=== PATIENT | male | born 1945 | race Caucasian/White ===

== ENCOUNTER → 2016-07-21 | Outpatient (CLI) | payer MEDICARE ==
[2016-07-21 09:32] LABS: CH 28.8; CHCM 31.9; HDW 2.69; MCH 29.2 pg (25.0-35.0); MCHC 32.3 g/dL (31.0-37.0); MCV 90.4 fL (80.0-100.0); Mean Platelet Volume 7.7; RBC 3.43 m/uL (4.30-5.90)
[2016-07-21 09:43] LABS: Calcium 9.6 mg/dL (8.4-10.2); Potassium 5.1 mmol/L (3.5-5.1)
== END | disposition home or self-care (01) ==
LOC: LABWHC1 08:46
PROVIDERS: ATTEND Surgery Vascular Surgery
DX: I73.9 Peripheral vascular disease, unspecified (principal)
CPT/HCPCS: 36415; 80048; 85027; 86850; 86900; 86901

== ENCOUNTER → 2016-10-19 | Day surgery (SDC) | payer MEDICARE ==
[2016-10-17 15:52] VITALS: BMI 41.9
[~2016-10-19] MED LIST: LACTATED RINGERS 1,000 ML IV ONE; LACTATED RINGERS 1,000 ML IV SCH; LIDOCAINE 1% 20 ML VIAL (10MG/ML) FOR IV START INTRADERMA PRN; PROPOFOL 10 MG/ML 20 ML VIAL IV ONE; ePHEDrine 50 MG/ML 1 ML AMP ONE
[2016-10-19 07:31] VITALS: RESP 18; TEMP 97.3
[2016-10-19 07:35] LABS: Glucose,Whole Blood 137 mg/dL (75-99)
--- NOTE | 2016-10-19 08:59 | P.PCN ---
Date of Procedure: 10/19/16 Procedure(s) Performed: Procedure: Total colonoscopy. Preoperative diagnosis: Iron deficiency anemia. Postoperative diagnosis: Exam within normal limits. Preparation: HalfLytely prep. Sedation: Was provided by anesthesia. Brief clinical history: The patient is a 71-year-old male who is referred for this evaluation because of iron deficiency anemia. He has no upper or lower abdominal symptoms or change in bowel habits or any history of overt bleeding. No family history of colon cancer. This would be his first colonoscopy. Procedure: With the patient on his left lateral decubitus position and after informed consent and adequate sedation, the perianal area was inspected and it did not show any fissures or fistulas. There were no masses felt on digital rectal examination. The Olympus CFQ 160L video colonoscope was then inserted in the rectum in the usual fashion and advanced to the cecum. The mucosa appeared healthy. No polyps or tumors were seen or any obvious diverticular disease or other pathology. I retroflexed endoscope in the rectum before the endoscope was withdrawn. The patient tolerated the procedure well. Plan: The patient was reassured. Consideration can be given for upper GI workup if he continues to have iron deficiency and shows evidence of GI blood loss. He will follow up with you as planned and we would be happy to see in the future.
[2016-10-19 09:18] VITALS: BP 101/56; PULSE 63
== END ==
LOC: ORWHC2ENDO 06:36
DX: D50.9 Iron deficiency anemia, unspecified (principal); I10 Essential (primary) hypertension; E78.5 Hyperlipidemia, unspecified; E11.9 Type 2 diabetes mellitus without complications; Z79.4 Long term (current) use of insulin; Z79.84 Long term (current) use of oral hypoglycemic drugs; I73.9 Peripheral vascular disease, unspecified; Z79.02 Long term (current) use of antithrombotics/antiplatelets; Z79.82 Long term (current) use of aspirin; Z79.899 Other long term (current) drug therapy; Z88.1 Allergy status to other antibiotic agents; Z91.09 Other allergy status, other than to drugs and biological substances
CPT/HCPCS: 45378; J2704

== ENCOUNTER 2021-07-12 10:10 | Day surgery (SDC) | payer MEDICARE ==
[2021-07-06 11:11] VITALS: BMI 47.6
[~2021-07-12 10:10] MED LIST changes: +ALPRAZolam 0.25 MG TAB PO PRN; +ALPRAZolam 0.5 MG TAB PO PRN; +ASPIRIN 325 MG TAB PO STA; +ATORVASTATIN 80 MG TAB PO STA; -LACTATED RINGERS 1,000 ML IV ONE; -LACTATED RINGERS 1,000 ML IV SCH; -LIDOCAINE 1% 20 ML VIAL (10MG/ML) FOR IV START INTRADERMA PRN; +NITROGLYCERIN SL TABS 0.4 MG TAB SUBLINGUAL PRN; -PROPOFOL 10 MG/ML 20 ML VIAL IV ONE; +SODIUM CHLORIDE 0.9% 1,000 ML in EMPTY BAG 1 BAG IV SCH; -ePHEDrine 50 MG/ML 1 ML AMP ONE
[2021-07-12 11:04] VITALS: TEMP 98.5
[2021-07-12] MEDS ORDERED: lisinopriL 20 MG TAB PO STA (11:09)
[2021-07-12] MEDS ORDERED: amLODIPine 5 MG TAB PO STA (11:09)
[2021-07-12] MEDS ORDERED: METOPROLOL SUCCINATE (ER) 50 MG TAB.ER.24H PO STA (11:09)
[2021-07-12 11:11] LABS: Glucose,Whole Blood 134 mg/dL (75-99)
[2021-07-12] MEDS ORDERED: fentaNYL (PF) 50 MCG/ML 2 ML AMP ONE (12:24)
[2021-07-12] MEDS: BENZOCAINE SPRAY 1 CAN MUCOUS MEM ONE ×2 (12:30→12:33)
[2021-07-12] MEDS ORDERED: fentaNYL (PF) 50 MCG/ML 2 ML AMP IV ONE (12:33)
[2021-07-12] MEDS: MIDAZOLAM 2 MG/2 ML VIAL IV ONE ×2 (12:33→12:35)
[2021-07-12] MEDS ORDERED: SODIUM CHLORIDE 0.9% 800 ML IV ONE (12:54)
--- NOTE | 2021-07-12 13:06 | P.TEE ---
Description of Procedure(s): Procedure performed: Transesophageal Echocardiogram with color flow doppler, pulsed wave doppler and continuous wave doppler, moderate conscious sedation Moderate conscious sedation: Moderate conscious sedation was supplied with direct supervision of myself using Versed and Fentanyl. Complications: none Indications: Severe aortic stenosis History: Patient is a pleasant 76-year-old male who has been monitored for aortic stenosis. He has been having increased dyspnea over last few months. Prior echo showed severe aortic stenosis with a V-max of 4.0 m/s. Therefore recommendation was for a DAVON and heart catheterization. PROCEDURE: After the risks, benefits and alternatives of the above mentioned procedure was explained in detail with the patient, informed consent was obtained. Patient was brought to the lab in a fasting state. Patient was given IV Versed and Fentanyl for sedation. The throat was sprayed with Hurricane to anesthetize the throat. A lubricated Omni probe was then introduced into the esophagus and stomach and multiple views were obtained. 2D echo with color flow doppler, pulsed wave doppler and continuous wave doppler was utilized. Agitated saline bubbles were injected to assess for any intra-atrial shunt. The probe was then removed. Patient tolerated the procedure well. Patient was t ransferred to the post procedure area in stable and satisfactory condition. FINDINGS: 1. The aortic valve is tricuspid and diffuse calcium with decreased leaflet excursion. There is severe aortic stenosis. Vmax was 3.8m/s however somewhat at an angle. JEFFRY by planimetry was 1.0 m/s. There is moderate aortic insufficiency. 2. The mitral valve appears be normal with mild mitral regurgitation. 3. Tricuspid valve appears to be normal with trace tricuspid regurgitation. 4. The interatrial septum is intact. No evidence of PFO. 5. Left atrial appendage is free of clot. 6. Left ventricular size appears normal. Left ventricular ejection fraction mildly reduced at 45-50% with mild global hypokinesis.
[2021-07-12] MEDS ORDERED: LIDOCAINE 1% INJ 10MG/ML (20 ML MDV) SQ ONE (13:16)
[2021-07-12] MEDS ORDERED: VERAPAMIL SYRINGE (5 MG/10 ML) INTRAARTER ONE (13:19)
[2021-07-12] MEDS ORDERED: SODIUM CHLORIDE 0.9% 600 ML IV ONE (13:24)
[2021-07-12] MEDS ORDERED: IOPAMIDOL-370 125ML BTL INJ ONE (13:56)
[2021-07-12] MEDS ORDERED: RX INFO: IV CONTRAST WAS GIVEN 1 EACH MISC MISCELLANE PRN (14:57)
[2021-07-12] MEDS ORDERED: SODIUM CHLORIDE 0.9% 1,000 ML IV SCH (15:00)
[2021-07-12 16:36] VITALS: PULSE 62; RESP 16
--- NOTE | 2021-07-12 17:11 | P.CARDCATH ---
Description of Procedure: PROCEDURES PERFORMED: Left heart catheterization, bilateral coronary angiography, iFR RCA INDICATION: Abnormal stress test, class III dyspnea, Severe aortic stenosis HISTORY: Patient is a pleasant 76-year-old male with history of hypertension, hyperlipidemia, PAD abnormal stress test and aortic stenosis. He had echo performed over the summer which showed severe with a Vmax of 4.0m/s however was fairly asymptomatic. He also had an abnormal stress test which showed inducible ischemia however stated he had been asymptomatic. Unfortunately he has been having increased symptoms of STEINBERG over the last 2 months and therefore DAVON and LHC were recommended. DAVON done today had shown JEFFRY 1.0cm2 however velocities somewhat lower. CONSENT:I have discussed the risks, benefits and alternative therapies for the above-mentioned procedure and for both sedation/analgesia as well as necessary blood product administration, if indicated, as they pertain to this patient. The patient has indicated understanding and acceptance of the risks and procedures discussed. PROCEDURE: After the risks, benefits and alternatives of the above mentioned procedure explained in detail with the patient, informed consent was obtained. Patient was taken to the catheterization lab and prepped and draped in usual fashion. 1% lidocaine was used to anesthetize the right radial artery. A 6- Bolivian sheath was placed in the right radial artery using modified Seldinger technique. Left coronary angiography was performed with a 5-Bolivian JL 3.[address] and right coronary angiography was performed with a 5-Bolivian FR5 catheter in various views. A 5-Bolivian FR5 catheter was inserted into the left ventricle with some manipulation and pressure measurements were obtained. Given Afib and some variable pressures we performed simultaneous pressure measurements from the LV and the right radial sheath. There was possibility of some discrepancy from the radial site however after pullback, aortic and radial pressures were fairly similar. Pullback was performed. The decision was made to perform iFR of the LAD. Heparin was given for ACT greater than 250. A 6-Bolivian FR5 guide was used to engage the RCA. A 0.014 iFR pressure wire was advanced and normalized. The first iFR reading there was some drift and therefore was renormalized. The iFR wire was advanced into the distal RCA and iFR was performed and was normal at 0.95. The wire was then removed. The right radial sheath was removed and a TR band was placed with hemostasis achieved. The patient tolerated the procedure well. Patient was transported back to the post catheterization holding area in stable condition. Conscious Sedation: Patient was monitored under the direct supervision of vision of myself for conscious sedation using Versed and fentanyl for a total duration of 47 minutes HEMODYNAMICS: AO: 123/64 LV: 177/14, LVEDP 19mmHg. Mean gradient 32.6mmHg, peak to peak gradient 39mmHg SELECTIVE CORONARY ARTERIOGRAPHY: LEFT MAIN: The left main is a large caliber vessel which bifurcates into the LAD and circumflex. There is 30% left main stenosis. LEFT ANTERIOR DESCENDING CORONARY ARTERY: LAD is a large caliber vessel which wraps around to the apex. There are mild luminal irregularties. LEFT CIRCUMFLEX CORONARY ARTERY: Left circumflex is a moderate caliber vessel and has mild 20-30% stenosis. RIGHT CORONARY ARTERY: The right coronary artery is a large caliber vessel which gives off the PDA and PLV and is the dominant vessel. There is a mid RCA hea vily calcified 60% stenosis. iFR of 0.95 FINAL IMPRESSION: 1. CAD as described above including 30% left main and 60% mid RCA, iFR RCA normal at 0.95 2. Mildly elevated left sided filling pressures. 3. Mean gradient 32.6, peak to peak gradient of 39mmHg PLAN: 1. Aggressive risk factor modification per most recent ACC/AHA guidelines. 2. Followup in office.
[2021-07-12] MEDS ORDERED: glipiZIDE 5 MG TAB PO SCH (17:30)
[2021-07-12 17:49] VITALS: BP 119/72
[2021-07-12] MEDS ORDERED: INSULIN GLARGINE HUM REC ANLOG 300 UNIT/ML SQ SCH (21:00)
[2021-07-12] MEDS ORDERED: ATORVASTATIN 40 MG TAB PO SCH (21:00)
[2021-07-12] MEDS ORDERED: RIVAROXABAN 20 MG TAB PO SCH (21:00)
[2021-07-13] MEDS ORDERED: METOPROLOL SUCCINATE (ER) 50 MG TAB.ER.24H PO SCH (09:00)
[2021-07-13] MEDS ORDERED: amLODIPine 5 MG TAB PO SCH (09:00)
[2021-07-13] MEDS ORDERED: ASPIRIN 81 MG PO SCH (09:00)
[2021-07-13] MEDS ORDERED: NON FORMULARY DRUG (Lisinopril [Lisinopril] 40 MG Tablet) PO SCH (09:00)
[2021-07-18] MEDS ORDERED: NON FORMULARY DRUG (Dulaglutide [Trulicity] 3 MG/0.5 ML Each) SQ SCH (14:56)
== END 2021-07-12 17:35 | disposition home or self-care (01) ==
LOC: CATHCVL 10:10
PROVIDERS: ATTEND Internal Medicine
DX: I25.10 Atherosclerotic heart disease of native coronary artery without angina pectoris (principal); I08.3 Combined rheumatic disorders of mitral, aortic and tricuspid valves; I48.0 Paroxysmal atrial fibrillation; R94.39 Abnormal result of other cardiovascular function study; I50.30 Unspecified diastolic (congestive) heart failure; E11.51 Type 2 diabetes mellitus with diabetic peripheral angiopathy without gangrene; Z20.822 Contact with and (suspected) exposure to COVID-19; Z87.891 Personal history of nicotine dependence; I10 Essential (primary) hypertension; Z95.820 Peripheral vascular angioplasty status with implants and grafts; R53.81 Other malaise; Z72.0 Tobacco use; Z79.01 Long term (current) use of anticoagulants; Z79.84 Long term (current) use of oral hypoglycemic drugs; Z79.4 Long term (current) use of insulin; Z79.899 Other long term (current) drug therapy; Z88.1 Allergy status to other antibiotic agents; Z91.09 Other allergy status, other than to drugs and biological substances
CPT/HCPCS: 93312; 93320; 93325; 93458; 87635; C1887; C1894; C1769; J2250; J2001; J3010; J1644; Q9967

== ENCOUNTER → 2021-07-21 | Outpatient (CLI) | payer MEDICARE ==
[2021-07-21 09:05] LABS: ALT 24 U/L (4-49); AST 24 U/L (17-59); Albumin 4.2 g/dL (3.5-5.0); Albumin/Globulin Ratio 1.4; Alkaline Phosphatase 95 U/L (38-126); Anion Gap 9 mmol/L; Calcium 9.5 mg/dL (8.4-10.2); Carbon Dioxide 24 mmol/L (22-30); Chloride 105 mmol/L (98-107); Globulin 2.9 g/dL; Glucose 155 mg/dL (74-99); Magnesium 1.9 mg/dL (1.6-2.3); Potassium 4.6 mmol/L (3.5-5.1); Sodium 138 mmol/L (137-145); Total Bilirubin 0.7 mg/dL (0.2-1.3); Total Protein 7.1 g/dL (6.3-8.2)
[2021-07-21 09:10] LABS: INR 1.2 (<1.2); Partial Thromboplastin Time 31.6 sec (22.0-30.0); Prothrombin Time 12.4 sec (9.0-12.0)
[2021-07-21 09:44] LABS: African American GFR (CKD) 66 (>60 ml/min/1.73 sqM); Blood Urea Nitrogen 18 mg/dL (9-20); Non-African American GFR(CKD) 57 (>60 ml/min/1.73 sqM)
[2021-07-21 10:54] LABS: Appearance,Urine Clear (Clear); Bacteria,Urine Rare /hpf; Bilirubin,Urine Negative (Negative); Blood,Urine Negative (Negative); Color,Urine Light Yellow; Glucose,Urine (UA) Negative (Negative); Ketones,Urine Negative (Negative); Leukocyte Esterase,Urine Large (Negative); Nitrite,Urine Negative (Negative); PH, Urine 5.5 (5.0-8.0); Protein,Urine Negative (Negative); RBC,Urine 1 /hpf (0-5); Specific Gravity,Urine 1.021 (1.001-1.035); Squamous Epithelial Cell,Urine 1 /hpf (0-4); Urobilinogen,Urine <2.0 mg/dL (<2.0); WBC,Urine 4 /hpf (0-5)
--- NOTE | 2021-07-21 11:12 | CT ---
EXAMINATION TYPE: CT TAVR Planning DATE OF EXAM: 07/21/2021 HISTORY: nonrheumatic aortic insufficiency CT DLP: 2473.6 mGycm Automated Exposure Control for Dose Reduction was Utilized. CONTRAST: CT scan of the chest, abdomen and pelvis is performed with IV Contrast, patient injected with 120 mL of Isovue 370. COMPARISON: None. TECHNIQUE: Helical imaging obtained through the chest, abdomen and pelvis during arterial phase allison smiley administration of radiographic contrast intravenously. FINDINGS: See report from [facility] regarding preprocedural planning CHEST: Lower Neck and Thyroid: No significant findings Lungs: Incidental 4 mm posterior subpleural nodule right lung axial image 31 series 12. Central Airway: No significant findings Pleura: No significant findings Pulmonary Arteries: No significant findings Heart and Pericardium: Fairly severe three-vessel coronary artery calcification. Moderate calcificati on at level of the aortic and mitral valves. Cardiomegaly is present. Lymph Nodes: A few prominent borderline enlarged subcarinal lymph nodes. Mediastinum & Esophagus: No significant findings ABDOMEN/PELVIS: Please note arterial phase of the imaging limits detailed evaluation of the solid abdominal organs. Liver: The liver is heterogeneously hypodense consistent with diffuse fatty infiltration Spleen: No significant findings Kidneys: Cortical thinning bilaterally. Areas of diminished enhancement or perfusion in the left kidn ey noted Adrenal Glands: No significant findings Pancreas: No significant findings Gallbladder: No significant findings Bowel and Mesentery: Redundant sigmoid colon Lymph Nodes: No significant findings Urinary Bladder: No significant findings Pelvic Organs: Enlarged prostate consistent with BPH. Adjacent scattered pelvic phleboliths. Other: Small-caliber abdominal aorta with moderate peripheral calcified plaque IMPRESSION: As above.
[2021-07-21 13:33] LABS: Basophils # (A) 0.05 X 10*3/uL (0.00-0.10); Basophils % (A) 0.5 %; Eosinophils # (A) 0.12 X 10*3/uL (0.04-0.35); Eosinophils % (A) 1.1 %; HCT 45.4 % (39.6-50.0); HGB 14.3 g/dL (13.0-17.0); Immature Grans, Automated 0.4 %; Lymphocytes # (A) 1.85 X 10*3/uL (0.90-5.00); Lymphocytes % (A) 17.3 %; MCH 29.7 pg (27.0-32.0); MCHC 31.5 g/dL (32.0-37.0); MCV 94.4 fL (80.0-97.0); Mean Platelet Volume 10.6 fL (9.5-12.2); Monocytes # (A) 0.89 X 10*3/uL (0.20-1.00); Monocytes % (A) 8.3 %; NRBC Per 100 WBC 0 /100 WBCS (0.0-0.0); Neutrophils # (A) 7.77 X 10*3/uL (1.80-7.70); Neutrophils % (A) 72.4 %; Platelet Count 222 X 10*3/uL (140-440); RBC 4.81 X 10*6/uL (4.40-5.60); RDW 13.9 % (11.5-14.5); WBC 10.72 X 10*3/uL (4.50-10.00)
[2021-07-21 14:01] LABS: Hepatitis A Antibody IgM Nonreactive (Nonreactive); Hepatitis B Core IgM Nonreactive (Nonreactive); Hepatitis B Surface Antigen Nonreactive (Nonreactive); Hepatitis C IgG Antibody Nonreactive (Nonreactive)
[2021-07-21 14:25] LABS: Chol/HDL Ratio 3.54 Ratio; LDL Cholesterol,Calculated 43.7 mg/dL (0.0-131.0)
== END | disposition home or self-care (01) ==
LOC: LABWHC1 07:39
PROVIDERS: ATTEND Internal Medicine
DX: I35.0 Nonrheumatic aortic (valve) stenosis (principal); I48.91 Unspecified atrial fibrillation; R94.31 Abnormal electrocardiogram [ECG] [EKG]
CPT/HCPCS: 94150; 83880; 80061; 80053; 80074; 84443; 83735; 85025; 85610; 85730; 81001; 87070; 87086; 87077; 87186; 83036; 71275; 36415 ×2; 74174; 93005; Q9967

== ENCOUNTER → 2021-08-04 | Outpatient (CLI) | payer MEDICARE ==
--- NOTE | 2021-08-05 09:20 | CT ---
EXAMINATION TYPE: CT angio chest DATE OF EXAM: 08/04/2021 4:47 PM COMPARISON: CT dated 07/21/2021 HISTORY: Assess aortic arch and arch vessels CT DLP: 1459.2 mGycm Automated exposure control for dose reduction was used. CONTRAST: CTA scan of the thorax is performed without and with IV Contrast, patient injected with 80 mL of Isov ue 370, thoracic aorta protocol. MIP and 3-D images were performed and reviewed. FINDINGS: Scattered arterial atherosclerotic calcifications including coronary arterial calcifications. Aortic and mitral valve calcification is also noted. -The aortic annulus measures 3 cm. -The sinus of Valsalva measures 3.7 cm. -The sinotubular junction measures 3 cm. -The ascending aorta measures 4 cm. -The aortic arch measures 3.7 cm. -The proximal portion of the descending aorta measures 2.7 cm. -The inferior aspect of the descending aorta measures 2.6 cm. Atherosclerotic calcifications of the major arch vessels without significant stenosis or occlusion. S evere stenosis of the origin of the right vertebral artery yet patent distally. About 60% stenosis of the origin of the left vertebral artery yet patent distally. Dilated left atrium, please correlate w ith echocardiographic results. No pericardial effusion. 3 mm nodule at the posterior aspect of the right lower lobe with 4 mm nodule at the lateral aspect of the right lower lung lobe (image 29, series 12). No follow-up is required for these nodules if low r isk patient. If high-risk patient, optional follow-up CT scan in 12 months can be considered. Unremar kable lungs otherwise. Patent central airways. No pleural effusion. No pathologically enlarged lymph nodes in the chest. Suspected hepatic steatosis. No aggressive bone lesion. IMPRESSION: Thoracic aortic measurements and findings as detailed above. Please correlate with echocardiographic results. Other incidental findings as described above.
== END | disposition home or self-care (01) ==
LOC: RADCTMAIN 14:46
PROVIDERS: ATTEND Thoracic Surgery (Cardiothoracic Vascular Surgery)
DX: I08.0 Rheumatic disorders of both mitral and aortic valves (principal); I25.10 Atherosclerotic heart disease of native coronary artery without angina pectoris; R91.1 Solitary pulmonary nodule
CPT/HCPCS: 82565; 84520; 71275; 36415; Q9967

== ENCOUNTER → 2021-09-02 | Outpatient (CLI) | payer MEDICARE | END | disposition home or self-care (01) | LOC: LABWHC1 08:44 | PROVIDERS: ATTEND Thoracic Surgery (Cardiothoracic Vascular Surgery) | DX: Z53.9 Procedure and treatment not carried out, unspecified reason (principal) ==

== ENCOUNTER 2021-09-07 05:43 | Inpatient (IN) | payer MEDICARE ==
[2021-09-02 10:01] LABS: INR 1.3 (<1.2); Partial Thromboplastin Time 33.6 sec (22.0-30.0); Prothrombin Time 13.9 sec (9.0-12.0)
[2021-09-02 14:51] LABS: HCT 43.1 % (39.6-50.0); HGB 13.4 g/dL (13.0-17.0); MCH 29.5 pg (27.0-32.0); MCHC 31.1 g/dL (32.0-37.0); MCV 94.9 fL (80.0-97.0); Mean Platelet Volume 10.5 fL (9.5-12.2); NRBC Per 100 WBC 0 /100 WBCS (0.0-0.0); Platelet Count 224 X 10*3/uL (140-440); RBC 4.54 X 10*6/uL (4.40-5.60); RDW 14.1 % (11.5-14.5); WBC 11.05 X 10*3/uL (4.50-10.00)
[2021-09-02 15:35] LABS: African American GFR (CKD) 68.6 (60.0-200.0); Albumin 4.5 g/dL (3.8-4.9); Albumin/Globulin Ratio 1.8 (1.60-3.17); Anion Gap 13.1 mmol/L (10.00-18.00); BUN/Creat Ratio 13.75 Ratio (12.00-20.00); Blood Urea Nitrogen 16.5 mg/dL (9.0-27.0); Calcium 9.9 mg/dL (8.7-10.3); Carbon Dioxide 22.9 mmol/L (20.0-27.5); Globulin 2.5 g/dL (1.6-3.3); Non-African American GFR(CKD) 59.2 (60.0-200.0); Potassium 4.7 mmol/L (3.5-5.5); Total Bilirubin 0.3 mg/dL (0.30-1.20)
[~2021-09-07 05:43] MED LIST changes: -ALPRAZolam 0.25 MG TAB PO PRN; -ALPRAZolam 0.5 MG TAB PO PRN; -ASPIRIN 325 MG TAB PO STA; -ATORVASTATIN 80 MG TAB PO STA; -NITROGLYCERIN SL TABS 0.4 MG TAB SUBLINGUAL PRN; -SODIUM CHLORIDE 0.9% 1,000 ML in EMPTY BAG 1 BAG IV SCH; +TRANEXAMIC ACID 2,000 MG in SODIUM CHLORIDE 0.9% 80 ML IV PRN
[2021-09-07] MEDS ORDERED: SODIUM CHLORIDE 0.9% 500 ML 500 ML INTRAARTER PRN (06:00)
[2021-09-07] MEDS ORDERED: PROTAMINE SULFATE 250 MG in EMPTY BAG 1 BAG IV PRN (06:00)
[2021-09-07] MEDS ORDERED: METOPROLOL TARTRATE 25 MG TAB PO ONE (06:00)
[2021-09-07] MEDS ORDERED: NITROGLYCERIN-D5W PMX 25 MG/250 ML BTL IV PRN (06:00)
[2021-09-07] MEDS ORDERED: LACTATED RINGERS 1,000 ML IV SCH (06:00)
[2021-09-07] MEDS ORDERED: CLEVIDIPINE BUTYRATE 25 MG in EMPTY BAG 1 BAG IV PRN (06:00)
[2021-09-07] MEDS ORDERED: CLOPIDOGREL 75 MG TAB PO ONE (06:00)
[2021-09-07] MEDS ORDERED: ELECTROLYTE-A SOLUTION 1,000 ML with POTASSIUM CHLORIDE 100 MEQ, MAGNESIUM SULFATE 16 M... IV PRN ×5 (06:00)
[2021-09-07] MEDS ORDERED: INSULIN REGULAR 100 UNIT in SODIUM CHLORIDE 0.9% 100 ML IV PRN (06:00)
[2021-09-07] MEDS ORDERED: ATORVASTATIN 10 MG TAB PO ONE (06:00)
[2021-09-07] MEDS ORDERED: ASPIRIN 325 MG TAB PO ONE (06:00)
[2021-09-07] MEDS ORDERED: TRANEXAMIC ACID 2,000 MG in SODIUM CHLORIDE 0.9% 80 ML IV PRN (06:00)
[2021-09-07] MEDS ORDERED: SODIUM CHLORIDE 0.9% 1,000 ML IV ONE ×3 (06:10→11:22)
[2021-09-07 06:26] LABS: Glucose,Whole Blood 105 mg/dL (75-99)
[2021-09-07] MEDS ORDERED: LIDOCAINE 1% INJ 10MG/ML (20 ML MDV) ONE ×2 (07:26→08:00)
[2021-09-07] MEDS ORDERED: PHENYLEPHRINE-0.9% NACL SYG 1,000 MCG/10 ML SYRINGE ONE (08:00)
[2021-09-07] MEDS ORDERED: SUCCINYLCHOLINE CHLORIDE 100 MG/5 ML SYR IV ONE (08:00)
[2021-09-07] MEDS ORDERED: MIDAZOLAM 2 MG/2 ML VIAL ONE (08:00)
[2021-09-07] MEDS ORDERED: fentaNYL (PF) 50 MCG/ML 2 ML AMP ONE (08:00)
[2021-09-07] MEDS ORDERED: NEOSTIGMINE 1 MG/ML 10 ML VIAL ONE (08:00)
[2021-09-07] MEDS ORDERED: PROTAMINE SULFATE 10 MG/ML 5 ML VIAL IV ONE (08:00)
[2021-09-07] MEDS ORDERED: HYDROmorphone (PF) 1 MG/ML ONE (08:00)
[2021-09-07] MEDS ORDERED: ROCURONIUM 10 MG/ML (5 ML VIAL) IV ONE (08:00)
[2021-09-07] MEDS ORDERED: PROPOFOL 10 MG/ML 20 ML VIAL IV ONE (08:00)
[2021-09-07] MEDS ORDERED: HEPARIN SODIUM,PORCINE 10,000 UNIT/ML 1 ML VIAL ONE (08:00)
[2021-09-07] MEDS ORDERED: SODIUM CHLORIDE 0.9% IRRIG 1,000 ML BTL IRRIGATION ONE (08:00)
[2021-09-07] MEDS ORDERED: GLYCOPYRROLATE 0.2 MG/ML 2 ML VIAL ONE (08:00)
[2021-09-07] MEDS ORDERED: traMADol 50 MG TAB PO PRN ×2 (10:44)
[2021-09-07] MEDS ORDERED: ACETAMINOPHEN TAB 325 MG TAB PO PRN (10:44)
[2021-09-07] MEDS ORDERED: IPRATROPIUM-ALBUTEROL 3 ML NEB INHALATION PRN (10:44)
[2021-09-07] MEDS ORDERED: ONDANSETRON 4 MG/2 ML VIAL IVP PRN (10:44)
--- NOTE | 2021-09-07 10:46 | P.OP ---
Description of Procedure: Transcatheter Aoritc Valve Replacement Operative report PROCEDURE PERFORMED: 1. Direct arotic access and aortic Valve Implantation using a 29 mm Core-Valve Evolut-Pro Plus. 2. Transesophageal echocardiography (performed by anesthesia) 3. Ultrasound guided access of left femoral artery. 4. Placement of temporary pacemaker wire. 5. Aortic root angiography INDICATIONS: 1. 76 year-old with a history of severe symptomatic aortic valve stenosis NYHA class 3 symptoms. PERFORMING PHYSICIANS: 1. Bravo Joya DO Interventional Cardiology 2. Alvaro Haddad MD Interventional Cardiology. 3. Anthony Servin MD, Cardiothoracic Surgeon. 4. Doreen Muir MD Proctoring Interventional cardiology SEDATION: General anesthesia provided by anesthesia, see separate note APPROACH: Direct aortic access via open sternotomy PROCEDURE DESCRIPTION: The patient was discussed at valve clinic with multidisciplinary approach with cardiothoracic surgeon as well as vehicle and equipment cleaner and thought better treated with TAVR. Risks, benefits, and alternatives of the procedure had been explained to the patient who understood the risks and agreed to proceed. Patient was noted to have severe PAD including bilateral iliac disease, subclavian disease and carotid disease and follow-up best treated with direct aortic approach. After consents were obtained, patient was brought to the operating room in the cardiac clinical laboratory medical director and general anesthesia was provided by the anesthesiologist (see separate report). Once full body sterile prep was performed, right subclavian venous access was obtained and a temporary pacemaker was screwed in, performed by cardiothoracic surgery. Pacing threshholds were checked and deemed appropriate. Sternotomy was performed and purse string sutures were placed at the level of direct aortic access. A left femoral 6-Pakistani sheath was placed by ultrasound guidance. A 6-Pakistani pigtail was placed in the aortic root and aortic root angiography was performed. Direct aortic access was obtained with a 18-gauge needle and a 6-Pakistani sheath was placed. Using a 6-Pakistani JR4 catheter and a 0.035 straight wire the severely stenotic valve was crossed. The JR4 was then exchanged for a 6Fr pigtail catheter. A 0.035 Safari wire was then positioned in the apex. Over the Safari wire a 18-Pakistani sheath was placed. Next a 29 mm Corevalve Evolut-Pro Plus was advanced. The valve was then positioned across the aortic valve and confirmed with aortic root angiography. The valve was then deployed in proper position using slow deployment and with rapid pacing in conjuncture with aortic root angiography and DAVON. The delivery system was withdrawn back into the sheath and an aortic root injection in conjunction with DAVON demonstrated a satisfactory result. There was trace para valvular leak. There was no evidence of any other significant abnormalities. The sheath was withdrawn and the pursestring sutures were tightened in place with hemostasis achieved. The sternotomy was closed by cardiothoracic surgery, see separate note. The left femoral sheath was pulled and manual pressure was held with complete hemostasis. The temporary venous pacemaker was sutured in place. The patient was then transported to the ICU in hemodynamically stable condition, requiring no pressor support. COMPLICATIONS: None CONCLUSION: 1. Implantaion of 29 Core-Valve Evolut-Pro Plus transcatheter aortic valve via direct aortic approach under DAVON and fluoro guidance with trace tonio-valvular aortic regurgitation. 2. Placement of temporary pacemaker wire 3. Aortic Root Aortogram. 4. Direct aortic approach with sternotomy RECOMMENDATIONS: The patient will be monitored in the ICU for hemodynamic and electrical stability.
--- NOTE | 2021-09-07 11:07 | P.OP ---
Date of Procedure: 09/07/21 Preoperative Diagnosis: Tricuspid calcific aortic stenosis, aortic regurgitation. Postoperative Diagnosis: Same Procedure(s) Performed: Transcatheter aortic valve replacement be via direct aortic approach with hemisternotomy Implants: 29 mm Medtronic evolute pro plus core valve Anesthesia: GETA Surgeon: Anthony Servin Whiskey Regauger #1: Bravo Joya (First oyster farmer) Whiskey Regauger #2: Alvaro Haddad (Second oyster farmer) Estimated Blood Loss (ml): 100 IV fluids (ml): 500 Urine output (ml): 200 Pathology: none sent Condition: stable Disposition: ICU Indications for Procedure: 76-year-old male presents with symptomatic severe aortic valvular stenosis. He was evaluated and felt to be moderate to high risk for surgical aortic valve replacement. Transcatheter aortic valve replacement appeared to be his best option however access was extremely limited. The patient had severe heavily calcific bilateral iliofemoral disease she would not allow placement of a large enough catheter to place the core valve. The left subclavian had right stenosis and diffuse calcification. The right subclavian also had diffuse calcification and was extremely tortuous. 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 Although the right common carotid was a potential access site given that this was the sole supply blood to the brain it was felt that this was not appropriate. We finally opted for a direct aortic approach for the tra nscatheter aortic valve replacement. Informed consent was obtained in the multidisciplinary valve clinic. Operative Findings: Although there was heavy calcific plaque palpable in the lateral portion of the ascending aorta, an appropriate soft area was present on the anterior and anterior lateral portion of the ascending aorta. It was somewhat difficult to place a long 6-Malawian catheter through the left common femoral into the descending aorta but we did succeed eventually and pushing it through the calcium in the iliac system. Crossing the valve was somewhat difficult but eventually 6 we succeeded using a JR catheter. Deployment of the valve proceeded without difficulty and the final DAVON pictures demonstrated only trivial paravalvular leak and gradients of 2 and 4 mmHg. Closure of the aortic cannulation site seated without any difficulty. Successful sternal closure was accomplished with wires and a plate. Description of Procedure: Patient was brought to the operating room and placed supine on the operating fluoroscopy table. General anesthesia was induced and the DAVON probe was placed. The head was turned to the left. The right neck, shoulder, chest, abdomen and bilateral groins were sterilely prepped and draped. After timeout, the subclavian vein was punctured with an 18-gauge needle with a single stick and a guidewire advanced into the right atrium. Introducer and dilator were placed. Temporary ventricular pacing wire was placed in the apex of the right ventricle and screwed in. Pacing thresholds were below 1 V. The lead was secured at the skin with 2-0 silk suture ligatures. We now made a 5 cm upper sternotomy incision. This was carried down through skin and subcutaneous tissue to the sternum. Sternotomy was planned in the mid sternum and coming out the right side of the fourth interspace. This was performed with the standard sternal saw. Hemostasis of the bone and periosteum was obtained and the Himmelstein retractor was used to spread the sternotomy opened. Underlying flap fat was divided and the pericardium identified. Midline pericardiotomy was performed and retraction use sutures were used to expose the ascending aorta from just above the sinotubular junction to the aortic arch. Left femoral access was obtained by Dr. Velasquez under ultrasound guidance. A long 6-Malawian sheath was carefully and advanced up into the descending thoracic aorta. This required placement of a stiff wire through a pigtail catheter in order to advance the sheath adequately through the iliac stenosis. The patient was systemically heparinized and a CTs were maintained greater than 150 during the procedure. Pigtail catheter was now advanced from the left groin into the non-coronary sinus of Valsalva. Fluoroscopy was used to identify the ideal site for cannulation of the ascending aorta. 3 pursestrings were placed here 1 with a 4- 0 Prolene and 2 with 2-0 Ethibond. Aorta was punctured with a Cook needle and a guidewire threaded into the root. 6-Malawian sheath was placed. Through this initially and AL-1 catheter was placed but we were unable to cross the valve and then this was changed to a JR 1 catheter and successful crossing of the valve was performed by Dr. Joya. With the wire across the valve the GI or 1 catheter was advanced into the apex of the ventricle. J-wire was then used to exchange for a pigtail catheter and then a stiff wire was placed into the apex of the ventricle. The 6-Malawian sheath was exchanged for the 18-Malawian sheath. The 29 core valve had been prepared on the back table and was checked under fluoroscopy. It was advanced through the 18 sheath over the stiff wire across the aortic valve. It was deployed under fluoroscopic guidance with occasional root angiography to assure deployment at the appropriate depth. Prior to final deployment the pigtail catheter was pulled back. Final deployment proceeded uneventfully and the catheter was placed with a depth of 4 on the right and 3 on the left. DAVON demonstrated excellent expansion of the valve with no constriction. There was only trivial paravalvular leak. There was no significant gradient across the valve. The valve delivery system was pulled back and the [address] Heparin was reversed with protamine. The 18-Malawian sheath was then removed and the pursestring sutures tied with excellent hemostasis obtained. The 6-Malawian sheath was removed from the left groin and hemostasis obtained with direct pressure. Mediastinum and sternotomy incisions were checked for hemostasis which was noted to be good. Mediastinum sternotomy incision was drained with a 19 Nehemias Shivam-Nelson drain which was brought out through the neck and secured with a 2-0 silk suture. Sternum was closed with 2 sternal wires and a single cable plate. Maxillary plate with 4x16 mm screws was used. This yielded a very stable and strong sternal closure. We again irrigated and then the subcutaneous tissues and skin were closed with layers of Vicryl suture. Patient was transferred to the ICU in stable condition.
[2021-09-07 11:34] LABS: Glucose,Whole Blood 99 mg/dL (75-99)
[2021-09-07 11:38] LABS: Basophils % (A) 0 %; Eosinophils # (A) 0.2 k/uL (0-0.7); Eosinophils % (A) 2 %; HCT 40.5 % (39.0-53.0); HGB 13.3 gm/dL (13.0-17.5); Lymphocytes # (A) 2.7 k/uL (1.0-4.8); Lymphocytes % (A) 22 %; MCH 30.9 pg (25.0-35.0); MCHC 32.9 g/dL (31.0-37.0); Monocytes # (A) 0.7 k/uL (0-1.0); Monocytes % (A) 5 %; Neutrophils # (A) 8.6 k/uL (1.3-7.7); Neutrophils % (A) 69 %; Platelet Count 224 k/uL (150-450); RBC 4.31 m/uL (4.30-5.90); RDW 14.3 % (11.5-15.5); WBC 12.5 k/uL (3.8-10.6)
--- NOTE | 2021-09-07 11:47 | FL ---
Fluoroscopy INDICATION: TAVR FINDINGS: Fluoroscopy time: 10 minutes 55 seconds. Images obtained: 290. IMPRESSIONS: 1. Documentation of fluoroscopy.
[2021-09-07 11:51] LABS: Ionized Calcium 5.1 mg/dL (4.5-5.3)
--- NOTE | 2021-09-07 11:53 | P.ANPRN ---
Procedure Note - Anesthesia - Invasive Line Right Central Line Time Out Performed: Yes Date of Procedure: 09/07/21 Time of Procedure: 07:23 Location of Patient: PreOp Preparation: Sterile Prep, Sterile Dressing Ultrasound Used: Yes (Image saved) Purpose - Visualization and Identification of Vasculature: Yes Image Stored and Saved: Yes Narrative: Central line placement per sterile protocol utilized. Informed consent obtained. Central line placement per sterile protocol utilized. Right Internal jugular vein cannulated under aseptic precautions. 3cc 1% lidocaine infiltrated initially after cleaning with iodine based prep and draping. Ultrasound used to locate the vein and selginger technique used. 7Fr triple-lumen central inserted after the finding the needle with mapping pilot needle/catheter. After the insertion Catheter the line is dressed with biopatch and tegaderm. Patient tolerated the procedure well. C - DAVON Intraop Pre Bypass DAVON Intraop - Anesthesia Indication: Transcatheter aortic valve replacement procedure Date of Procedure: 09/07/21 Pre-operative Diagnosis: Severe aortic stenosis Post-operative Diagnosis: Transcatheter aortic valve replacement Surgeon: Anthony Servin Left Ventricle: Ejection fraction 55-60% and no regional wall motion observed Ejection Fraction: Normal Regional Wall Motion Abnormalities: None Left Ventricle Hypertrophy: No R. Ventricle Function: Normal Aortic Valve: Severely calcified with severe stenosis, valve area 0.8 cm and peak gradient 48 mmHg and mean gradient 40 mm of hg Anatomy: Trileaflet Aortic Stenosis: Severe Aortic Regurgitation: Moderate Mitral Stenosis: None Mitral Regurgitation: Mild Tricuspid Stenosis: None Tricuspid Regurgitation: Trace Pulmonic Stenosis: None R. Atrial Dilation: No R. Atrial PFO: No L. Atrial Dilation: No Aortic Dissection: No Aortic Calcification: Mild Plural Effusion: None - DAVON Intraop Post Bypass DAVON Intraop Post Bypass Procedure Performed: Transcatheter aortic valve replacement Left Ventricle: Ejection fraction 55-60% Ejection Fraction: Normal Regional Wall Motion Abnormalities: None R. Ventricle Function: Normal Aortic Valve: Prosthetic valve seen in aortic position, seated well. Mean gradient across the prosthetic valve 3 mmHg and the peak is 6 mmHg. Trace paravalvular leak is seen which is not significant. Mitral Valve: Unchanged Tricuspid: Unchanged Pulmonic: Unchanged Aortic Dissection: No
[2021-09-07 11:55] LABS: Albumin 3.7 g/dL (3.5-5.0); Calcium 8.6 mg/dL (8.4-10.2); Magnesium 1.5 mg/dL (1.6-2.3); Total Bilirubin 0.5 mg/dL (0.2-1.3); Total Protein 6.4 g/dL (6.3-8.2)
[2021-09-07] MEDS: LACTATED RINGERS 1,000 ML IV SCH (11:57)
[2021-09-07 12:18] LABS: INR 1.1 (<1.2); Partial Thromboplastin Time 23.7 sec (22.0-30.0); Prothrombin Time 11.4 sec (9.0-12.0)
[2021-09-07] MEDS: MAGNESIUM SULFATE-D5W PMX 1 GM in DEXTROSE/WATER 1 100ML.BAG IVPB SCH ×2 (12:32→13:37)
--- NOTE | 2021-09-07 13:33 | XR ---
EXAMINATION TYPE: XR chest 1V portable DATE OF EXAM: 09/07/2021 COMPARISON: None INDICATION: Postoperative cardiac surgery TECHNIQUE: Single frontal view of the chest is obtained. FINDINGS: The heart size is mildly prominent. Valve surgery is evident. Sternotomy wires are in the midline. E lectronic leads extend towards the heart. Right central venous catheter is present with the tip in th e superior vena cava region. The pulmonary vasculature is somewhat prominent. The lungs are clear. IMPRESSION: 1. Mild cardiomegaly.
--- NOTE | 2021-09-07 14:07 | P.CNPUL ---
History of Present Illness Consult date: 09/07/21 Requesting physician: Anthony Servin Chief complaint: Aortic valve stenosis History of present illness: 76-year-old male patient with history of symptomatic severe aortic valvular stenosis. Patient has a history of diabetes mellitus type 2, peripheral vascular disease, hypertension, prior tobacco abuse, and chronic atrial fibrillation. Patient had prior history of left iliac stenting and left SFA bypass for a history of peripheral arterial disease. Patient's diagnosis of aortic stenosis was first known one year ago, and initially patient was asymptomatic. Valve area by transthoracic echocardiogram was 0.6 with mild to moderate AI, and ejection fraction of 50-55%. Patient had a transesophageal echocardiogram that showed a valve area of 1.0. Moderate AI, and ejection fraction of 45-50%. Coronary disease was mild, patient was morbidly obese. Patient had a normal bedside preoperative spirometry. Over the last few months he developed increasing shortness of breath and he had trouble when he is climbing stairs or carrying groceries. He was evaluated at the valve clinic. Patient was given a choice of transcatheter versus open surgery and patient opted for transcatheter approach. Patient was found to have severe calcific disease in the bilateral iliac systems and did not have appropriate transfemoral access for transcatheter aortic valve replacement. The decision was made to proceed with transcatheter aortic valve replacement via a direct aortic approach with dale-sternotomy. This was done on 09/07/2021. In the postoperative period patient is seen in the intensive care unit. He is doing well, he is awake and alert, in no acute distress. Hemodynamically patient is stable, he remains in atrial fibrillation with a controlled rate of 85 bpm, blood pressure stable, he is breathing comfortably, he is currently on 2 L of oxygen satting 94-95%, blood pressure 126/71. He is on lactated Ringer's at 50 ML per hour, no other drips. His midsternal incision is clean dry and intact, covered with a surgical dressing, right subclavian area temporary pacemaker wire insertion site clean dry and intact. Pacemaker wires connected to external pacemaker with VVI backup. Postop chest x-ray showing mild cardiomegaly. Today's labs have been reviewed, white blood cell count is 12.5, hemoglobin is 13.3, INR is 1.1, sodium is 136, potassium is 4.0, chloride is 105, CO2 is 21, BUN 16, creatinine is 1.04. Patient is on Kefzol Per CT Surgery, He Was Started on Breathing Treatments, he is on aspirin and Plavix, Lipitor, lisinopril. His magnesium is being replaced per protocol, he is back on his Toprol-XL 50 mg once daily. He is breathing comfortably, he denies any specific complaints. Review of Systems All systems: negative Constitutional: Denies chills, Denies fever Eyes: denies blurred vision, denies pain Ears, nose, mouth and throat: Denies headache, Denies sore throat Cardiovascular: Denies chest pain, Denies shortness of breath Respiratory: Reports dyspnea, Denies cough Gastrointestinal: Denies abdominal pain, Denies diarrhea, Denies nausea, Denies vomiting Musculoskeletal: Denies myalgias Integumentary: Denies pruritus, Denies rash Neurological: Denies numbness, Denies weakness Psychiatric: Denies anxiety, Denies depression Endocrine: Denies fatigue, Denies weight change Past Medical History Past Medical History: Atrial Fibrillation, Diabetes Mellitus, GI Bleed, Hypertension, Skin Disorder, Vascular Disorder Additional Past Medical History / Comment(s): aortic stenosis,heart murmur, hx infection in foot-healed History of Any Multi-Drug Resistant Organisms: None Reported Past Surgical History: Heart Catheterization, Tonsillectomy Additional Past Surgical History / Comment(s): eye surg. as child for [employer], LT ILIAC PERCUTANEOUS BALLOON ANGIOPLASTY WITH STENT. COLONOSCOPY, EGD, left leg bypass, PICC line-later removed Past Anesthesia/Blood Transfusion Reactions: Motion Sickness Additional Past Anesthesia/Blood Transfusion Reaction / Comment(s): no hx blood transfusion Past Psychological History: No Psychological Hx Reported Smoking Status: Former smoker Past Alcohol Use History: Occasional Additional Past Alcohol Use History / Comment(s): quit smoking 1991,smoked for 30yrs (1961) 1ppd Past Drug Use History: None Reported - Past Family History Father Family Medical History: Cancer Additional Family Medical History / Comment(s): throat CA that spread to his brain Mother Additional Family Medical History / Comment(s): heart problems Brother(s) Family Medical History: Diabetes Mellitus Medications and Allergies Home Medications Medication Instructions Recorded Confirmed Type metFORMIN HCL [Glucophage] 500 mg PO BID 03/03/16 09/07/21 History amLODIPine [Norvasc] 5 mg PO QAM 06/22/17 09/07/21 History Atorvastatin [Lipitor] 40 mg PO HS 07/06/21 09/07/21 History Dulaglutide [Trulicity] 3 mg SQ MO 07/06/21 09/07/21 History Insulin Glargine,Hum.rec.anlog 80 units SQ HS 07/06/21 09/07/21 History [Toujeo Solostar] Metoprolol Succinate (ER) [Toprol 50 mg PO QAM 07/06/21 09/07/21 History XL] Rivaroxaban [Xarelto] 20 mg PO HS 07/06/21 09/07/21 History glipiZIDE [Glucotrol] 5 mg PO AC-BID 07/06/21 09/07/21 History lisinopriL 40 mg PO QAM 07/06/21 09/07/21 History Allergies Allergy/AdvReac Type Severity Reaction Status Date / Time vancomycin Allergy Dyspnea/sha Verified 09/07/21 06:13 ky neoprene Allergy Rash/Hives Uncoded 09/07/21 06:13 Physical Exam Vitals: Vital Signs Temp Pulse Pulse Resp BP BP BP 09/07/21 13:30 85 12 09/07/21 13:20 76 18 118/64 09/07/21 13:10 82 14 09/07/21 13:00 82 16 09/07/21 12:50 66 14 09/07/21 12:40 71 14 126/71 09/07/21 12:30 81 12 09/07/21 12:20 77 14 125/57 09/07/21 12:10 95.9 F L 74 14 09/07/21 12:00 75 15 125/57 09/07/21 11:50 84 23 09/07/21 11:40 18 125/57 09/07/21 11:30 96.0 F L 87 24 09/07/21 11:25 22 09/07/21 06:37 98.2 F 81 16 171/79 162/69 Pulse Ox 09/07/21 13:30 94 L 09/07/21 13:20 94 L 09/07/21 13:10 94 L 09/07/21 13:00 94 L 09/07/21 12:50 94 L 09/07/21 12:40 94 L 09/07/21 12:30 95 03/23/22 12:20 95 09/07/21 12:10 97 09/07/21 12:00 96 09/07/21 11:50 95 09/07/21 11:40 95 09/07/21 11:30 95 09/07/21 11:25 09/07/21 06:37 97 Intake and Output 09/06/21 09/07/21 09/07/21 22:59 06:59 14:59 Intake Total 100 750 Output Total 640 Balance 100 110 Intake: IV 100 750 Lactated Ringers 1,000 ml 50 @ 50 mls/hr IV .Q20H ELIO Rx#:[id number] Magnesium Sulfate-D5w Pmx 200 1 gm In Dextrose/Water 1 100ml.bag @ 100 mls/hr IVPB Q1H ELIO Rx#: [id number] Output: Drainage 40 Medial Chest 40 Urine 600 Other: # Voids 0 Weight 127 kg ABP, PAP, CO, CI - Last 8 Hours Arterial Blood Pressure 132/54 Arterial Blood Pressure 130/58 Arterial Blood Pressure 135/56 Arterial Blood Pressure 133/58 Arterial Blood Pressure 127/51 Arterial Blood Pressure 131/54 Arterial Blood Pressure 142/60 Arterial Blood Pressure 142/54 Arterial Blood Pressure 154/58 Arterial Blood Pressure 155/61 Arterial Blood Pressure 153/61 Arterial Blood Pressure 155/74 Arterial Blood Pressure 161/64 GENERAL EXAM: Alert, very pleasant, 76-year-old white male, 2 L of oxygen, resting comfortably in bed comfortable in no apparent distress. HEAD: Normocephalic/atraumatic. EYES: Normal reaction of pupils, equal size. Conjunctiva pink, sclera white. NOSE: Clear with pink turbinates. THROAT: No erythema or exudates. NECK: No masses, no JVD, no thyroid enlargement, no adenopathy. CHEST: No chest wall deformity. Symmetrical expansion. Midsternal incision is clean dry and intact, covered with surgical dressing, mediastinal JULIANO drain is in place, with small amount of sanguinous output. Right subclavian temporary pacemaker wire insertion site is clean dry and intact, connected to external pacemaker with VVI backup LUNGS: Equal air entry with no crackles, wheeze, rhonchi or dullness. CVS: Regular rate and rhythm, normal S1 and S2, no gallops, no murmurs, no rubs ABDOMEN: Soft, nontender. No hepatosplenomegaly, normal bowel sounds, no guarding or rigidity. EXTREMITIES: No clubbing, no edema, no cyanosis, 2+ pulses and upper and lower extremities. MUSCULOSKELETAL: Muscle strength and tone normal. SPINE: No scoliosis or deformity SKIN: No rashes CENTRAL NERVOUS SYSTEM: Alert and oriented -3. No focal deficits, tone is nor mal in all 4 extremities. PSYCHIATRIC: Alert and oriented -3. Appropriate affect. Intact judgment and insight. Results - Laboratory Findings CBC and BMP: 09/07/21 11:30 09/07/21 11:30 PT/INR, D-dimer PT 11.4 sec (9.0-12.0) 09/07/21 11:30 INR 1.1 (<1.2) 09/07/21 11:30 Abnormal lab findings: Abnormal Labs 09/02/21 09/02/21 09/02/21 08:52 08:52 08:52 WBC 11.05 H MCHC 31.1 L Neutrophils # PT 13.9 H INR 1.3 H APTT 33.6 H Sodium Carbon Dioxide Est GFR (CKD-EPI)NonAf 59.2 L Glucose 125 H POC Glucose (mg/dL) Magnesium Crossmatch 09/02/21 09/07/21 09/07/21 08:52 06:15 11:30 WBC 12.5 H MCHC Neutrophils # 8.6 H PT INR APTT Sodium Carbon Dioxide Est GFR (CKD-EPI)NonAf Glucose POC Glucose (mg/dL) 105 H Magnesium Crossmatch See Detail 09/07/21 11:30 WBC MCHC Neutrophils # PT INR APTT Sodium 136 L Carbon Dioxide 21 L Est GFR (CKD-EPI)NonAf Glucose 138 H POC Glucose (mg/dL) Magnesium 1.5 L Crossmatch - Diagnostic Findings Chest x-ray: report reviewed, image reviewed Assessment and Plan Plan: Assessment: #1. Severe symptomatic aortic valve stenosis status post transcatheter aortic valve replacement aVR direct aortic approach with dale-sternotomy on 09/07/2021 #2. Chronic atrial fibrillation #3. Peripheral arterial disease with previous history of iliac stenting and subsequent femoral-popliteal bypass in the left leg #4. History of left foot ulcer #5. History of diastolic heart failure #6. Hyperlipidemia #7. Diabetes mellitus type 2 #8. Hypertension #9. Obesity with BMI of 45.2 kg/m #10. Previous history of tobacco dependence, currently in remission Plan: Patient is seen in the postoperative period in the intensive care unit Doing well, Hemodynamically stable Minimal output out of the mediastinal JULIANO drain Continue antibiotics Per CT surgery GI and DVT prophylaxis Home meds have already been restarted by CT surgery Follow-up echocardiogram in the morning Continue close hemodynamic monitoring in the intensive care unit Follow-up chest x-ray and labs tomorrow I have personally seen and examined the patient, performed the documentation and the assessment and plan as written. Number of minutes spent on the visit: [15] Time with Patient: Greater than 30
--- NOTE | 2021-09-07 15:00 | CT ---
EXAMINATION TYPE: CODE STROKE: CT brain wo contr DATE OF EXAM: 09/07/2021 COMPARISON: None available HISTORY: Asphasia CT DLP: 1036.8 mGycm Automated exposure control for dose reduction was used. TECHNIQUE: CT scan of the brain is performed without IV contrast administration. FINDINGS: Brain volume loss changes, likely age-related. Scattered arterial atherosclerotic calcifications. No acute intracranial hemorrhage. No gross acute cortical infarct. No midline shift, herniation or ventr iculomegaly. Unremarkable cao-white matter differentiation, basal cisterns, sella and CP angles. No gross space-o ccupying lesion, vasogenic edema or mass effect. Unremarkable orbits. Mild mucosal thickening of the maxillary sinuses and ethmoid air cells. Clear ma stoid air cells. Well-corticated lucency in the left mandibular condyle, likely benign. No aggressive bone lesion. IMPRESSION: No acute intracranial hemorrhage or gross acute cortical infarct by this nonenhanced CT scan. Inciden maria guadalupe findings as described above.
[2021-09-07] MEDS ORDERED: KETOROLAC 15 MG/ML 1 ML VIAL IVP PRN (16:17)
[2021-09-07] MEDS: ceFAZolin 3 GM in SODIUM CHLORIDE 0.9% 100 ML IVPB SCH (17:17)
--- NOTE | 2021-09-07 17:47 | P.CNNES ---
History of Present Illness Consult date: 09/07/21 Requesting physician: Hedy Fischer Reason for Consult: Stroke code History of Present Illness: Patient is a 76-year-old left-handed male, with history of severe symptomatic aortic valve stenosis, who came for elective TAVR procedure this morning. Patient was doing well before he went for surgery at around 9:30 AM. Patient underwent TAVR without any perioperative issues. After patient underwent procedure, and return back to ICU, and when he came out of anesthesia, he was noted to have slurred speech, facial droop for which stroke code was activated at around 2:24 PM. Computed tomography scan of head was performed, which revealed no acute process. CTA was also ordered, but cardiothoracic surgeon recommended to hold off on CTA at that point. Patient was brought back to the ICU. I came to see patient right after computed tomography scan was completed. Patient was having slurred speech, some difficulty expressing himself as per examination. Patient's NIH stroke scale was 4. Patient was not a candidate for TPA, as he has undergone sternotomy and TAVR procedure today. Patient also had a DAVON performed during the procedure, and there was no left ventricular or left atrial clot, as per report from the surgical team. The DAVON showed aortic valve area of 1.0, moderate AI an ejection fraction of 45-50%. As per report from cardiothoracic surgeon, patient had a carotid Doppler performed in June 2021, and patient has 100% occluded left ICA, and moderate stenosis of the right side. No report of perioperative hypotension as per cardiothoracic PA. Patient had sternotomy, a drainage tube in place. Patient otherwise not in significant distress. Patient has history of diabetes for about 25 years. Patient does have chronic atrial fibrillation, for which he has been on Xarelto, which was on hold in the last dose he received was on Sunday, and today is Sunday when he had the procedure. Patient has received a loading dose of Plavix 300 mg as of this morning. Patient has history of hypertension, tobacco use, obesity, left foot ulcer, peripheral arterial disease. Review of Systems Patient denies any headache any problem with the vision. Denies any numbness tingling focal weakness. He does admit to having some slurred speech. No double vision. He has some chest pain related to surgery. No abdominal pain, no nausea vomiting diarrhea. All other 14 point review of systems reviewed and noncontributory. At this time. 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 COLONOSCOPY, EGD, left leg bypass, PICC line-later removed Past Anesthesia/Blood Transfusion Reactions: Motion Sickness Additional Past Anesthesia/Blood Transfusion Reaction / Comment(s): no hx blood transfusion Past Psychological History: No Psychological Hx Reported Smoking Status: Former smoker Past Alcohol Use History: Occasional Additional Past Alcohol Use History / Comment(s): quit smoking 1991,smoked for 30yrs (1961) 1ppd Past Drug Use History: None Reported - Past Family History Father Family Medical History: Cancer Additional Family Medical History / Comment(s): throat CA that spread to his brain Mother Additional Family Medical History / Comment(s): heart problems Brother(s) Family Medical History: Diabetes Mellitus Medications and Allergies Home Medications Medication Instructions Recorded Confirmed Type metFORMIN HCL [Glucophage] 500 mg PO BID 03/03/16 09/07/21 History amLODIPine [Norvasc] 5 mg PO QAM 06/22/17 09/07/21 History Atorvastatin [Lipitor] 40 mg PO HS 07/06/21 09/07/21 History Dulaglutide [Trulicity] 3 mg SQ MO 07/06/21 09/07/21 History Insulin Glargine,Hum.rec.anlog 80 units SQ HS 07/06/21 09/07/21 History [Toujeo Solostar] Metoprolol Succinate (ER) [Toprol 50 mg PO QAM 07/06/21 09/07/21 History XL] Rivaroxaban [Xarelto] 20 mg PO HS 07/06/21 09/07/21 History glipiZIDE [Glucotrol] 5 mg PO AC-BID 07/06/21 09/07/21 History lisinopriL 40 mg PO QAM 07/06/21 09/07/21 History Allergies Allergy/AdvReac Type Severity Reaction Status Date / Time vancomycin Allergy Dyspnea/sha Verified 09/07/21 06:13 ky neoprene Allergy Rash/Hives Uncoded 09/07/21 06:13 Physical Examination - Vital Signs Vital Signs: Vital Signs Temp Pulse Pulse Resp BP BP BP 09/07/21 17:00 111 H 16 09/07/21 16:30 89 18 09/07/21 16:00 92 12 09/07/21 15:30 88 14 09/07/21 15:00 19 125/83 09/07/21 14:30 111 H 24 110/77 09/07/21 14:00 81 14 133/60 09/07/21 13:30 85 12 09/07/21 13:20 76 18 118/64 09/07/21 13:10 82 14 09/07/21 13:00 82 16 09/07/21 12:50 66 14 09/07/21 12:40 71 14 126/71 09/07/21 12:30 81 12 09/07/21 12:20 77 14 125/57 09/07/21 12:10 95.9 F L 74 14 09/07/21 12:00 75 15 125/57 09/07/21 11:50 84 23 09/07/21 11:40 18 125/57 09/07/21 11:30 96.0 F L 87 24 09/07/21 11:25 22 09/07/21 06:37 98.2 F 81 16 171/79 162/69 Pulse Ox 09/07/21 17:00 96 09/07/21 16:30 96 09/07/21 16:00 97 09/07/21 15:30 09/07/21 15:00 09/07/21 14:30 95 09/07/21 14:00 94 L 09/07/21 13:30 94 L 09/07/21 13:20 94 L 09/07/21 13:10 94 L 09/07/21 13:00 94 L 09/07/21 12:50 94 L 09/07/21 12:40 94 L 09/07/21 12:30 95 09/07/21 12:20 95 09/07/21 12:10 97 09/07/21 12:00 96 09/07/21 11:50 95 09/07/21 11:40 95 09/07/21 11:30 95 03/23/22 11:25 09/07/21 06:37 97 Intake and Output 09/07/21 09/07/21 09/07/21 06:59 14:59 22:59 Intake Total 100 750 150 Output Total 660 0 Balance 100 90 150 Intake: IV 100 750 150 Lactated Ringers 1,000 ml 50 150 @ 50 mls/hr IV .Q20H ELIO Rx#:[id number] Magnesium Sulfate-D5w Pmx 200 1 gm In Dextrose/Water 1 100ml.bag @ 100 mls/hr IVPB Q1H ELIO Rx#: [id number] Output: Drainage 60 Medial Chest 60 Urine 600 0 Other: # Voids 0 0 Weight 127 kg ABP, PAP, CO, CI - Last 8 Hours Arterial Blood Pressure 140/62 Arterial Blood Pressure 135/57 Arterial Blood Pressure 141/63 Arterial Blood Pressure 137/66 Arterial Blood Pressure 148/64 Arterial Blood Pressure 122/56 Arterial Blood Pressure 132/54 Arterial Blood Pressure 130/58 Arterial Blood Pressure 135/56 Arterial Blood Pressure 133/58 Arterial Blood Pressure 127/51 Arterial Blood Pressure 131/54 Arterial Blood Pressure 142/60 Arterial Blood Pressure 142/54 Arterial Blood Pressure 154/58 Arterial Blood Pressure 155/61 Arterial Blood Pressure 153/61 Arterial Blood Pressure 155/74 Arterial Blood Pressure 161/64 Patient is an elderly male, weighs moderately obese, in no acute distress. Patient is alert awake. He knows his name, age but has difficulty with concentration. Speech is mild to moderately dysarthric and language functions also slightly affected. Patient couldn't name simple objects like eyeglasses, ear, but not the earlobe, knuckles. He can repeat very well. Attention, concentration is intact and fund of knowledge is slightly limited. On cranial examination, pupils are equal, round and reacting to light, visual pelaez are full on confrontation, with no neglect on double simultaneous stimulation. His extraocular muscles are intact with no nystagmus. Patient has flattening of the right nasolabial fold with mild right facial droop. His tongue protrudes to the midline. Palatal elevation and sensation normal, hearing and shoulder shrug normal, facial sensation normal. On muscle strength testing, there very mild right pronator drift. The arm does not hit the bed. The muscle strength is normal in arms and legs distally and proximally. Deep tendon reflexes are symmetric, 1+ to 2+ and plantars are downgoing bilaterally. Sensory to touch is equal with no neglect on double simultaneous stimulation. Cerebellar function showed no ataxia for aowviv-yj-kpvw testing or kxzh-xh-tiqu testing. Tone and bulk of muscles normal. Gait not checked. On general examination, there is no carotid bruit or murmur, S1-S2 audible. Abdomen is soft nontender. Bowel sounds present. No organomegaly. Chest is clear. Patient has peripheral edema. He has a very dry, scaly skin particularly of his lower legs. Results - Laboratory Findings CBC and BMP: 09/07/21 11:30 09/07/21 11:30 Abnormal Lab Findings: Abnormal Labs 09/02/21 09/02/21 09/02/21 08:52 08:52 08:52 WBC 11.05 H MCHC 31.1 L Neutrophils # PT 13.9 H INR 1.3 H APTT 33.6 H Sodium Carbon Dioxide Est GFR (CKD-EPI)NonAf 59.2 L Glucose 125 H POC Glucose (mg/dL) Magnesium Crossmatch 09/02/21 09/07/21 09/07/21 08:52 06:15 11:30 WBC 12.5 H MCHC Neutrophils # 8.6 H PT INR APTT Sodium Carbon Dioxide Est GFR (CKD-EPI)NonAf Glucose POC Glucose (mg/dL) 105 H Magnesium Crossmatch See Detail 09/07/21 11:30 WBC MCHC Neutrophils # PT INR APTT Sodium 136 L Carbon Dioxide 21 L Est GFR (CKD-EPI)NonAf Glucose 138 H POC Glucose (mg/dL) Magnesium 1.5 L Crossmatch Assessment and Plan Assessment: * Probable acute ischemic stroke, with mild aphasia, dysarthria, right facial droop and very minimal right pronator drift. NIH stroke scale is 4. Mechanism of stroke could be related to distal embolism from chronic left ICA occlusion, versus cerebral ischemia from ?hypotension (if any perioperatively), versus related to cardioembolism. * Status post TAVR for severe aortic valve stenosis this morning. * Atrial fibrillation, on Xarelto (on hold for last 4 days) * Diabetes * Hypertension * Chronic left ICA occlusion * Obesity * Peripheral vascular disease. * History of tobacco use Plan: * Patient not a candidate for TPA, as he has just undergone sternotomy for TAVR procedure. * Patient has chronic left ICA occlusion. Discussed with neuro intervention Dr. Bazzi. No need to pursue CTA, as patient has low NIH stroke scale, patient has known left ICA occlusion, and patient not a candidate for thrombectomy at this point. * Patient has received Plavix 300 mg loading dose this morning. Patient will be maintained on Plavix 75 mg daily from a.m. * Patient will be resumed on Xarelto 20 mg daily from tomorrow evening it appears. * Avoid hypotension particularly less than 130 systolic. * Continue close neuro checks. * MRI brain, MRA head. Surgical team has cleared for MRI. * Carotid Doppler was done recently, and patient already has chronically occluded left ICA. * Patient's hemoglobin A1c 8.7 on 07/21/2021. Recommend optimize control of diabetes to target A1c <7.0. * Lipid panel with cholesterol 105, LDL 43, HDL 29 and triglycerides 158 on 07/21/2021. Continue Lipitor 40 mg. * Tobacco cessation. * Discussed with cardiothoracic surgical team. * We will follow. Time with Patient: Greater than 30
[2021-09-07 18:26] LABS: Glucose,Whole Blood 245 mg/dL (75-99)
[2021-09-07 18:26] LABS: Glucose,Whole Blood 204 mg/dL (75-99)
[2021-09-07] MEDS: INSULIN ASPART (NovoLOG) 100 UNIT/ML VIAL SQ SCH ×2 (18:30→20:09)
[2021-09-07] MEDS: glipiZIDE 5 MG TAB PO SCH (18:31)
[2021-09-07] MEDS: ceFAZolin 3 GM in SODIUM CHLORIDE 0.9% 100 ML IVPB ONE (19:11)
[2021-09-07 20:01] LABS: Glucose,Whole Blood 226 mg/dL (75-99)
[2021-09-07] MEDS: ATORVASTATIN 40 MG TAB PO SCH (20:09)
[2021-09-07] MEDS: INSULIN DETEMIR (LEVEMIR) 100 UNIT/ML SYR SQ SCH (20:10)
[2021-09-08] MEDS: HEPARIN SODIUM,PORCINE/PF 5,000 UNIT/0.5 ML SYRINGE SQ SCH ×3 (00:24→18:11)
[2021-09-08] MEDS: ceFAZolin 3 GM in SODIUM CHLORIDE 0.9% 100 ML IVPB SCH ×2 (00:25→09:19)
[2021-09-08 06:16] LABS: Basophils % (A) 0 %; Eosinophils # (A) 0.1 k/uL (0-0.7); Eosinophils % (A) 1 %; HCT 39.9 % (39.0-53.0); HGB 12.9 gm/dL (13.0-17.5); Lymphocytes # (A) 1.1 k/uL (1.0-4.8); Lymphocytes % (A) 9 %; MCH 30.6 pg (25.0-35.0); MCHC 32.4 g/dL (31.0-37.0); MCV 94.2 fL (80.0-100.0); Mean Platelet Volume 7.6; Monocytes # (A) 0.8 k/uL (0-1.0); Monocytes % (A) 7 %; Neutrophils # (A) 9.9 k/uL (1.3-7.7); Neutrophils % (A) 82 %; Platelet Count 202 k/uL (150-450); RBC 4.23 m/uL (4.30-5.90); RDW 14.3 % (11.5-15.5); WBC 12.1 k/uL (3.8-10.6)
[2021-09-08 06:33] LABS: Glucose,Whole Blood 145 mg/dL (75-99)
[2021-09-08 06:46] LABS: Albumin 3.6 g/dL (3.5-5.0); Calcium 8.7 mg/dL (8.4-10.2); Magnesium 1.8 mg/dL (1.6-2.3); Potassium 4.3 mmol/L (3.5-5.1); Total Bilirubin 0.8 mg/dL (0.2-1.3); Total Protein 6.4 g/dL (6.3-8.2)
[2021-09-08] MEDS: INSULIN ASPART (NovoLOG) 100 UNIT/ML VIAL SQ SCH ×4 (06:52→21:37)
[2021-09-08 06:55] LABS: Ionized Calcium 4.9 mg/dL (4.5-5.3)
[2021-09-08] MEDS: PANTOPRAZOLE 40 MG TABLET PO SCH (06:59)
[2021-09-08] MEDS: glipiZIDE 5 MG TAB PO SCH ×2 (06:59→18:11)
[2021-09-08] MEDS ORDERED: FUROSEMIDE 10 MG/ML 2 ML VIAL IV ONE (07:30)
--- NOTE | 2021-09-08 08:57 | P.PN ---
Subjective Progress Note Date: 09/08/21 Principal diagnosis: Severe symptomatic aortic valve stenosis. Previous medical history of hypertension, hyperlipidemia, diastolic heart failure, chronic atrial fibrillation on Oliva for anticoagulation, insulin-dependent diabetes, PAD with left SFA/iliac stenting and subsequent bypass, left ICA stenosis, previous tobacco dependence POD #1 direct aortic access and aortic valve implantation using a 29 mm Core Valve Evolut Pro Plus, transesophageal echocardiography performed by anesthesia, ultrasound-guided access of left femoral artery, placement of temporary pacemaker wire, aortic root angiography The patient was seen and examined this morning sitting up in a recliner in the intensive care unit in no acute distress. He remains in controlled atrial fibrillation, hemodynamically stable. Yesterday after TAVR he had an episode of some slurred speech with some possible facial droop, code stroke was called, CT reported no acute process. Neurology is concerned for possible acute ischemic stroke and plans for MRI/MRA today. Currently the patient is completely josh rologically intact, no slurring of speech, no facial droop present. He did have some urinary retention last night requiring straight catheterization. Denies any pain or shortness of breath. No other new concerns. Objective - Vital Signs Vital signs: Vital Signs Temp 98.3 F 09/08/21 00:00 Pulse 101 H 09/08/21 07:00 Resp 13 09/08/21 07:00 BP 137/80 09/08/21 07:00 Pulse Ox 93 L 09/08/21 06:00 Intake & Output 09/07/21 09/08/21 09/08/21 18:59 06:59 18:59 Intake Total 1050 600 250 Output Total 1460 500 Balance -410 100 250 Weight 126.7 kg Intake: IV 1050 600 50 Lactated Ringers 1,000 ml 250 600 50 @ 50 mls/hr IV .Q20H ELIO Rx#:[id number] Magnesium Sulfate-D5w Pmx 200 1 gm In Dextrose/Water 1 100ml.bag @ 100 mls/hr IVPB Q1H ELIO Rx#: [id number] ceFAZolin 3 gm In Sodium 100 Chloride 0.9% 100 ml @ 100 mls/hr IVPB Q8HR ELIO Rx#:[id number] Oral 200 Output: Drainage 110 Medial Chest 110 Urine 1350 500 Other: # Voids 0 0 ABP, PAP, CO, CI - Last Documented Arterial Blood Pressure 140/62 - Exam CONSTITUTIONAL: Appears comfortable, cooperative, no acute distress RESPIRATORY: Lungs sounds diminished bilaterally. Respirations even, nonlabored. Currently on 2 L nasal cannula with oxygen saturation 95%. Able to achieve 500 mL on incentive spirometry. Strong cough. CARDIOVASCULAR: S1, S2 present. Irregular rate and rhythm, controlled atrial fibrillation on telemetry. Palpable peripheral pulses bilaterally. Bilateral lower extremity edema present. No calf pain or tenderness noted. GASTROINTESTINAL: Abdomen soft, nontender, nondistended. Active bowel sounds present 4 quadrants. Tolerating diet. GENITOURINARY: Required straight catheterization last night INTEGUMENTARY: Skin is warm and dry with evidence of good perfusion. Anterior chest incision well approximated and covered with dry intact dressing, JULIANO drain with minimal drainage. Left groin soft, nontender NEUROLOGIC: Cranial nerves II through XII intact MUSKULOSKELETAL: Able to move all extremities, strength equal bilaterally, gait normal PSYCHIATRIC: Alert and oriented to person place and time, appropriate affect, intact judgment and insight INVASIVE LINES AND TUBES: Temporary pacemaker wire present, connected to generator, generator off. - Allied health notes Allied health notes reviewed: nursing - Labs CBC & Chem 7: 09/08/21 05:44 09/08/21 05:44 Labs: Abnormal Lab Results - Last 24 Hours (Table) 09/02/21 09/07/21 09/07/21 Range/Units 08:52 11:30 11:30 WBC 12.5 H (3.8-10.6) k/uL RBC (4.30-5.90) m/uL Hgb (13.0-17.5) gm/dL Neutrophils # 8.6 H (1.3-7.7) k/uL Sodium 136 L (137-145) mmol/L Carbon Dioxide 21 L (22-30) mmol/L Glucose 138 H (74-99) mg/dL POC Glucose (mg/dL) (75-99) mg/dL Magnesium 1.5 L (1.6-2.3) mg/dL Crossmatch See Detail 09/07/21 09/07/21 09/07/21 Range/Units 18:21 18:24 20:00 WBC (3.8-10.6) k/uL RBC (4.30-5.90) m/uL Hgb (13.0-17.5) gm/dL Neutrophils # (1.3-7.7) k/uL Sodium (137-145) mmol/L Carbon Dioxide (22-30) mmol/L Glucose (74-99) mg/dL POC Glucose (mg/dL) 245 H 204 H 226 H (75-99) mg/dL Magnesium (1.6-2.3) mg/dL Crossmatch 09/08/21 09/08/21 09/08/21 Range/Units 05:44 05:44 06:31 WBC 12.1 H (3.8-10.6) k/uL RBC 4.23 L (4.30-5.90) m/uL Hgb 12.9 L (13.0-17.5) gm/dL Neutrophils # 9.9 H (1.3-7.7) k/uL Sodium 135 L (137-145) mmol/L Carbon Dioxide 20 L (22-30) mmol/L Glucose 156 H (74-99) mg/dL POC Glucose (mg/dL) 145 H (75-99) mg/dL Magnesium (1.6-2.3) mg/dL Crossmatch - Imaging and Cardiology Chest x-ray: image reviewed Assessment and Plan Assessment: 1. Severe symptomatic aortic valve stenosis, status post TAVR 2. Hypertension 3. Hyperlipidemia, treated 4. Diastolic heart failure 5. Chronic atrial fibrillation on Xarelto for anticoagulation 6. Insulin-dependent diabetes, preprocedure A1c 8.7% 7. PAD with left SFA/iliac stenting and subsequent bypass 8. Left ICA stenosis 100% 9. Previous tobacco dependence, preprocedure FEV1 101% of predicted 10. Post procedure facial droop, slurring of words, questionable CVA Plan: 1. Plan is for MRI/MRA today for evaluation for stroke 2. Continue home meds, will restart as a result until today, Plavix added 3. Wean O2 as tolerated. Encourage incentive spirometry use 4. Will add Flomax. Encourage double void 5. Increase activity as tolerated 6. Will discontinue temporary pacemaker wire, JULIANO drain 7. Will monitor daily labs and x-rays 8. Pain control with current medication regimen 9. Tight blood sugar control 10. Will place transfer orders for 3 S. cardiac stepdown unit. May transfer when bed available 11. Hopefully discharge to home tomorrow 12. More recommendations to follow
[2021-09-08] MEDS ORDERED: MAGNESIUM HYDROXIDE 2,400 MG/10 ML CUP PO PRN (09:00)
[2021-09-08] MEDS: lisinopriL 20 MG TAB PO SCH (09:13)
[2021-09-08] MEDS: CLOPIDOGREL 75 MG TAB PO SCH (09:14)
[2021-09-08] MEDS: amLODIPine 5 MG TAB PO SCH (09:14)
[2021-09-08] MEDS: METOPROLOL SUCCINATE (ER) 50 MG TAB.ER.24H PO SCH (09:15)
[2021-09-08] MEDS: LACTATED RINGERS 1,000 ML IV SCH (09:16)
[2021-09-08] MEDS: MAGNESIUM SULFATE-D5W PMX 1 GM in DEXTROSE/WATER 1 100ML.BAG IVPB SCH ×2 (09:16→09:21)
[2021-09-08] MEDS: ceFAZolin 3 GM in SODIUM CHLORIDE 0.9% 100 ML IVPB ONE (09:18)
[2021-09-08] MEDS: TAMSULOSIN 0.4 MG CAP.ER.24H PO SCH (09:20)
--- NOTE | 2021-09-08 09:41 | XR ---
EXAMINATION TYPE: XR chest 1V portable DATE OF EXAM: 09/08/2021 COMPARISON: 09/07/2021 INDICATION: Postop cardiac surgery TECHNIQUE: Single frontal view of the chest is obtained. FINDINGS: The heart size is mildly prominent. The pulmonary vasculature is normal. The lungs are clear. IMPRESSION: 1. Mild cardiomegaly
--- NOTE | 2021-09-08 10:13 | ECHOF ---
Referral Reason:post tavr MEASUREMENTS -------- HEIGHT: 165.1 cm WEIGHT: 126.6 kg BP: RVIDd: 3.7 cm (< 3.3) IVSd: 1.4 cm (0.6 - 1.1) LVIDd: 4.4 cm (3.9 - 5.3) LVPWd: 2.0 cm (0.6 - 1.1) IVSs: 2.1 cm LVIDs: 2.8 cm LVPWs: 2.1 cm Ao Diam: 2.4 cm (2.0 - 3.7) LA Diam: 4.1 cm (2.7 - 3.8) MV EXCURSION: 16.486 mm (> 18.000) MV EF SLOPE: 107 mm/s (70 - 150) EPSS: 0.4 cm AV maxP.34 mmHg AV meanP.33 mmHg RAP: 5.00 mmHg RVSP: 16.99 mmHg FINDINGS -------- Atrial fibrillation. This was a technically adequate study. Morbid Obesity Pt is post Sternectomy/Post TAVR 09/07/21. The left ventricle is mildly dilated. There is moderate concentric left ventricular hypertrophy. Overall left ventricular systolic function is low-normal with, an EF between 50 - 55 %. The right ventricle is normal in size. The left atrial size is normal. The right atrial size is normal. The maximum velocity across the aortic valve is 2.08m/s. The maximum pressure gradient across the a ortic valve is 17.34mmHg. Peak/mean gradient across the Aortic Valve is 17.34mmHg / 10.33mmHg. No rmally functioning bioprosthetic valve. Mild mitral regurgitation is present. The tricuspid valve was not well visualized. No regurgitation noted The pulmonic valve was not well visualized. There is no pericardial effusion. CONCLUSIONS -------- 1. Pt is post Sternectomy/Post TAVR 09/07/21. 2. The left ventricle is mildly dilated. 3. There is moderate concentric left ventricular hypertrophy. 4. Overall left ventricular systolic function is low-normal with, an EF between 50 - 55 %. 5. The right ventricle is normal in size. 6. The left atrial size is normal. 7. The right atrial size is normal. 8. The maximum velocity across the aortic valve is 2.08m/s. 9. The maximum pressure gradient across the aortic valve is 17.34mmHg. 10. Peak/mean gradient across the Aortic Valve is 17.34mmHg / 10.33mmHg. 11. Normally functioning bioprosthetic valve. 12. Mild mitral regurgitation is present. 13. The tricuspid valve was not well visualized. 14. No regurgitation noted 15. The pulmonic valve was not well visualized. 16. There is no pericardial effusion. REFERRAL AGENT: Anika Loredo RDCS
[2021-09-08 11:01] VITALS: BMI 45.1
--- NOTE | 2021-09-08 11:12 | P.PN ---
Subjective Progress Note Date: 09/08/21 Principal diagnosis: Severe symptomatic aortic stenosis Patient is postoperative day #1, patient had direct aortic access and aortic valve implantation using a 29 mm Core Valve Evolut Pro Plus, transesophageal echocardiography performed by anesthesia, ultrasound-guided access of left femoral artery, placement of temporary pacemaker wire, aortic root angiography. His ABG initial postoperative course was uneventful. However yesterday he had a sudden episode of slurred speech with facial droop, and code stroke was called. Patient was also seen by neurology on consultation, he was felt to have clinically acute ischemic stroke, his CT of the head was nondiagnostic. Patient is scheduled to have MRI/MRA today. Clinically however the patient is back to normal, no slurred speech, no facial droop, and no weakness. Patient does not seem to be in any distress. Patient is on 2 L nasal cannula, O2 sats is 94%. And he has no active pulmonary symptoms. CBC is relatively normal electrolytes are normal renal profile is normal. Objective - Vital Signs Vital signs: Vital Signs Temp 97.9 F 09/08/21 08:00 Pulse 87 09/08/21 09:00 Resp 20 09/08/21 09:00 BP 105/58 09/08/21 09:00 Pulse Ox 94 L 09/08/21 09:00 Intake & Output 09/07/21 09/08/21 09/08/21 18:59 06:59 18:59 Intake Total 1050 600 950 Output Total 1460 500 Balance -410 100 950 Weight 126.7 kg 126.7 kg Intake: IV 1050 600 150 Lactated Ringers 1,000 ml 250 600 50 @ 50 mls/hr IV .Q20H ELIO Rx#:[id number] Magnesium Sulfate-D5w Pmx 200 1 gm In Dextrose/Water 1 100ml.bag @ 100 mls/hr IVPB Q1H ELIO Rx#: [id number] ceFAZolin 3 gm In Sodium 100 100 Chloride 0.9% 100 ml @ 100 mls/hr IVPB Q8HR ELIO Rx#:[id number] Intake, IV Titration 200 Amount Magnesium Sulfate-D5w Pmx 200 1 gm In Dextrose/Water 1 100ml.bag @ 100 mls/hr IVPB Q1H ELIO Rx#: [id number] Oral 600 Output: Drainage 110 Medial Chest 110 Urine 1350 500 Other: # Voids 0 0 ABP, PAP, CO, CI - Last Documented Arterial Blood Pressure 140/62 - Exam Physical Exam: Revealed a 76-year-old white male in no distress. Pleasant. On 2 L nasal cannula. Head: Atraumatic, normocephalic. HEENT:[Neck is supple.] [No neck masses.] [No thyromegaly.] [No JVD.] Chest: [Clear throughout, no crackles, no rhonchi, no wheezes.] Sternal incision seems to be stable and clean. Temporary pacemaker wire is intact in the right subclavian area. Cardiac Exam: [Irregular irregular rhythm. Normal S1 and S2, no S3 gallop, no murmur.] Abdomen: [Soft, nontender, no megaly, no rebound, no guarding, normal bowel sounds.] Extremities: [No clubbing, no edema, no cyanosis.] Neurological Exam: [No focal neurologic deficit.] Alert and oriented 3. Psychiatric: Normal mood affect and normal mental status examination. Skin: No rashes. - Labs CBC & Chem 7: 09/08/21 05:44 09/08/21 05:44 Labs: Abnormal Lab Results - Last 24 Hours (Table) 09/02/21 09/07/21 09/07/21 Range/Units 08:52 11:30 11:30 WBC 12.5 H (3.8-10.6) k/uL RBC (4.30-5.90) m/uL Hgb (13.0-17.5) gm/dL Neutrophils # 8.6 H (1.3-7.7) k/uL Sodium 136 L (137-145) mmol/L Carbon Dioxide 21 L (22-30) mmol/L Glucose 138 H (74-99) mg/dL POC Glucose (mg/dL) (75-99) mg/dL Magnesium 1.5 L (1.6-2.3) mg/dL Crossmatch See Detail 09/07/21 09/07/21 09/07/21 Range/Units 18:21 18:24 20:00 WBC (3.8-10.6) k/uL RBC (4.30-5.90) m/uL Hgb (13.0-17.5) gm/dL Neutrophils # (1.3-7.7) k/uL Sodium (137-145) mmol/L Carbon Dioxide (22-30) mmol/L Glucose (74-99) mg/dL POC Glucose (mg/dL) 245 H 204 H 226 H (75-99) mg/dL Magnesium (1.6-2.3) mg/dL Crossmatch 09/08/21 09/08/21 09/08/21 Range/Units 05:44 05:44 06:31 WBC 12.1 H (3.8-10.6) k/uL RBC 4.23 L (4.30-5.90) m/uL Hgb 12.9 L (13.0-17.5) gm/dL Neutrophils # 9.9 H (1.3-7.7) k/uL Sodium 135 L (137-145) mmol/L Carbon Dioxide 20 L (22-30) mmol/L Glucose 156 H (74-99) mg/dL POC Glucose (mg/dL) 145 H (75-99) mg/dL Magnesium (1.6-2.3) mg/dL Crossmatch Assessment and Plan Assessment: Impression: Severe symptomatic aortic valve stenosis Status post T aVR, postoperative day #1 Post TVR TIA, unexpected. Chronic diastolic heart failure Dyslipidemia Benign essential hypertension History of left ICA stenosis 100% History of peripheral vessel occlusive disease. Ex-smoker History of insulin-dependent diabetes. Morbid obesity. Recommendation: Continue to monitor the ICU MRI/MRA scheduled for today. Continue incentive spirometry Pain control Discontinue on necessary catheters or lines. Possible discharge planning in the next 24 hours. We'll continue to follow. Time with Patient: Less than 30
[2021-09-08 11:21] LABS: Glucose,Whole Blood 193 mg/dL (75-99)
[2021-09-08 17:02] LABS: Glucose,Whole Blood 266 mg/dL (75-99)
[2021-09-08 20:33] LABS: Glucose,Whole Blood 275 mg/dL (75-99)
[2021-09-08] MEDS ORDERED: SENNOSIDES-DOCUSATE SODIUM 1 EACH TAB PO SCH (21:00)
[2021-09-08] MEDS ORDERED: RIVAROXABAN 20 MG TAB PO SCH (21:00)
[2021-09-08] MEDS: ATORVASTATIN 40 MG TAB PO SCH (21:37)
[2021-09-08] MEDS: INSULIN DETEMIR (LEVEMIR) 100 UNIT/ML SYR SQ SCH (21:51)
[2021-09-09 06:08] LABS: Glucose,Whole Blood 157 mg/dL (75-99)
--- NOTE | 2021-09-09 06:38 | XR ---
EXAMINATION TYPE: XR chest 2V DATE OF EXAM: 09/09/2021 COMPARISON: Chest x-ray from yesterday. HISTORY: Post TAVR. TECHNIQUE: Frontal and lateral views of the chest are obtained. FINDINGS: There is mild chronic parenchymal change with small to tiny left bilateral pleural effusio ns and associated left basilar atelectasis and/or infiltrate. Persistent cardiomegaly. Stent graft at the aortic root redemonstrated. Overlying sternal wires are again seen. Degenerative change bilatera l glenohumeral joints redemonstrated. IMPRESSION: Cardiomegaly with small to tiny size bilateral pleural effusions and associated left gre ater than right bibasilar compressive atelectasis and/or less likely developing infiltrate.
[2021-09-09] MEDS: PANTOPRAZOLE 40 MG TABLET PO SCH (06:39)
[2021-09-09] MEDS: INSULIN ASPART (NovoLOG) 100 UNIT/ML VIAL SQ SCH ×2 (06:39→12:36)
[2021-09-09] MEDS: glipiZIDE 5 MG TAB PO SCH (06:39)
[2021-09-09 09:09] LABS: HGB 12.5 gm/dL (13.0-17.5); MCH 29.3 pg (25.0-35.0); MCHC 30.4 g/dL (31.0-37.0); MCV 96.3 fL (80.0-100.0); Mean Platelet Volume 8.4; Platelet Count 182 k/uL (150-450); RBC 4.26 m/uL (4.30-5.90); RDW 13.9 % (11.5-15.5); WBC 16.5 k/uL (3.8-10.6)
[2021-09-09] MEDS: TAMSULOSIN 0.4 MG CAP.ER.24H PO SCH (09:31)
[2021-09-09] MEDS: METOPROLOL SUCCINATE (ER) 50 MG TAB.ER.24H PO SCH (09:31)
[2021-09-09] MEDS: lisinopriL 20 MG TAB PO SCH (09:32)
[2021-09-09] MEDS: amLODIPine 5 MG TAB PO SCH (09:32)
[2021-09-09] MEDS: CLOPIDOGREL 75 MG TAB PO SCH (09:32)
[2021-09-09 09:34] LABS: Calcium 8.8 mg/dL (8.4-10.2); Magnesium 2.4 mg/dL (1.6-2.3); Potassium 3.8 mmol/L (3.5-5.1)
--- NOTE | 2021-09-09 10:13 | P.PN ---
Subjective Progress Note Date: 09/09/21 Principal diagnosis: Severe symptomatic aortic valve stenosis. Previous medical history of hypertension, hyperlipidemia, diastolic heart failure, chronic atrial fibrillation on Oliva for anticoagulation, insulin-dependent diabetes, PAD with left SFA/iliac stenting and subsequent bypass, left ICA stenosis, previous tobacco dependence POD #2 direct aortic access and aortic valve implantation using a 29 mm Core Valve Evolut Pro Plus, transesophageal echocardiography performed by anesthesia, ultrasound-guided access of left femoral artery, placement of temporary pacemaker wire, aortic root angiography The patient was seen and examined this morning sitting up in a recliner on the cardiac stepdown unit in no acute distress. He remains in controlled atrial fibrillation, hemodynamically stable. This morning's neuro exam revealed patient to be alert and oriented, however he is slow to come up with the building he is in as well as the date. No facial droop noted, no slurred speech. Patient awaits MRI/MRA to be completed this morning. Neurology is concerned for possible acute ischemic stroke. He was started on Flomax yesterday for acute urinary retention, patient has been able to void since last night without incident. Needs to work on incentive spirometry as he is only achieving 750 mL. Denies any pain or shortness of breath. No other new concerns. Objective - Vital Signs Vital signs: Vital Signs Temp 98.3 F 09/09/21 03:51 Pulse 88 09/09/21 03:51 Resp 18 09/09/21 03:51 BP 111/65 09/09/21 03:51 Pulse Ox 95 09/09/21 03:51 Intake & Output 09/08/21 09/09/21 09/09/21 18:59 06:59 18:59 Intake Total 1430 Output Total 1625 300 Balance -195 -300 Weight 125.8 kg 123.2 kg Intake: IV 150 Lactated Ringers 1,000 ml 50 @ 50 mls/hr IV .Q20H ELIO Rx#:[id number] ceFAZolin 3 gm In Sodium 100 Chloride 0.9% 100 ml @ 100 mls/hr IVPB Q8HR ELIO Rx#:[id number] Intake, IV Titration 200 Amount Magnesium Sulfate-D5w Pmx 200 1 gm In Dextrose/Water 1 100ml.bag @ 100 mls/hr IVPB Q1H ELIO Rx#: [id number] Oral 1080 Output: Urine 1625 300 Other: Voiding Method Urinal ABP, PAP, CO, CI - Last Documented Arterial Blood Pressure 140/62 - Exam CONSTITUTIONAL: Appears comfortable, cooperative, no acute distress RESPIRATORY: Lungs sounds diminished bilaterally. Respirations even, nonlabored. Currently on 2 L nasal cannula with oxygen saturation 95%. Able to achieve 750 mL on incentive spirometry. Strong cough. CARDIOVASCULAR: S1, S2 present. Irregular rate and rhythm, controlled atrial fibrillation on telemetry. Palpable peripheral pulses bilaterally. Bilateral lower extremity edema present. No calf pain or tenderness noted. GASTROINTESTINAL: Abdomen soft, nontender, nondistended. Active bowel sounds present 4 quadrants. Tolerating diet. GENITOURINARY: Continues to void INTEGUMENTARY: Skin is warm and dry with evidence of good perfusion. Anterior chest incision well approximated and covered with dry intact dressing. Left groin soft, nontender NEUROLOGIC: Cranial nerves II through XII intact MUSKULOSKELETAL: Able to move all extremities, strength equal bilaterally, gait normal PSYCHIATRIC: Alert and oriented to person place and time, slow to come up with place and date - Allied health notes Allied health notes reviewed: nursing - Labs CBC & Chem 7: 09/09/21 08:11 09/09/21 08:11 Labs: Abnormal Lab Results - Last 24 Hours (Table) 09/08/21 09/08/21 09/08/21 Range/Units 11:19 16:55 20:32 WBC (3.8-10.6) k/uL RBC (4.30-5.90) m/uL Hgb (13.0-17.5) gm/dL MCHC (31.0-37.0) g/dL POC Glucose (mg/dL) 193 H 266 H 275 H (75-99) mg/dL 09/09/21 09/09/21 Range/Units 06:07 08:11 WBC 16.5 H (3.8-10.6) k/uL RBC 4.26 L (4.30-5.90) m/uL Hgb 12.5 L (13.0-17.5) gm/dL MCHC 30.4 L (31.0-37.0) g/dL POC Glucose (mg/dL) 157 H (75-99) mg/dL - Imaging and Cardiology Chest x-ray: report reviewed, image reviewed Assessment and Plan Assessment: 1. Severe symptomatic aortic valve stenosis, status post TAVR 2. Hypertension 3. Hyperlipidemia, treated 4. Diastolic heart failure 5. Chronic atrial fibrillation on Xarelto for anticoagulation 6. Insulin-dependent diabetes, preprocedure A1c 8.7% 7. PAD with left SFA/iliac stenting and subsequent bypass 8. Left ICA stenosis 100% 9. Previous tobacco dependence, preprocedure FEV1 101% of predicted 10. Post procedure facial droop, slurring of words, questionable CVA Plan: 1. Plan is for MRI/MRA today for evaluation for stroke 2. Continue home meds 3. Wean O2 as tolerated. Encourage incentive spirometry use 4. Continue Flomax. Encourage double void 5. Increase activity as tolerated 6. Will monitor daily labs and x-rays 7. Pain control with current medication regimen 8. Tight blood sugar control 9. Hopefully discharge to home later today. Follow-up appointment made for groin check and 30 day post TAVR echo
[2021-09-09 10:38] VITALS: TEMP 98.7
--- NOTE | 2021-09-09 11:32 | P.PN ---
Subjective Progress Note Date: 09/08/21 Patient was seen in the ICU. Patient is sitting in the chair, appears much more comfortable. Denies any new neurological symptoms. Patient slurred speech has improved. Word finding also has improved. Denies any headache or any visual symptoms. Objective - Vital Signs Vital signs: Vital Signs Temp 97.9 F 09/08/21 08:00 Pulse 105 H 09/08/21 11:00 Resp 20 09/08/21 11:00 BP 120/78 09/08/21 11:00 Pulse Ox 94 L 09/08/21 11:00 Intake & Output 09/07/21 09/08/21 09/08/21 18:59 06:59 18:59 Intake Total 1050 600 950 Output Total 2316 656 6420 Balance -410 100 -225 Weight 126.7 kg 126.7 kg Intake: IV 1050 600 150 Lactated Ringers 1,000 ml 250 600 50 @ 50 mls/hr IV .Q20H ELIO Rx#:[id number] Magnesium Sulfate-D5w Pmx 200 1 gm In Dextrose/Water 1 100ml.bag @ 100 mls/hr IVPB Q1H ELIO Rx#: [id number] ceFAZolin 3 gm In Sodium 100 100 Chloride 0.9% 100 ml @ 100 mls/hr IVPB Q8HR ELIO Rx#:[id number] Intake, IV Titration 200 Amount Magnesium Sulfate-D5w Pmx 200 1 gm In Dextrose/Water 1 100ml.bag @ 100 mls/hr IVPB Q1H ELIO Rx#: [id number] Oral 600 Output: Drainage 110 Medial Chest 110 Urine 5347 227 5335 Other: # Voids 0 0 ABP, PAP, CO, CI - Last Documented Arterial Blood Pressure 140/62 - Exam Patient's mental status is normal. He is fully alert and awake. Speech is mildly dysarthric. He can name objects all presented including knuckles, earlobe, pen, eyeglasses, button, button hole. He has very mild word finding problem noticeable during conversation. He can repeat very well. Comprehension is perfect. Cranial nerves revealed very minimal right-sided flattening of the nasolabial fold. Tongue protrudes the midline. Visual pelaez are full. On muscle strength testing patient has right pronator drift. Deltoids are 5- bilaterally. Rest of the muscle strength is normal. Patient has decreased finger tapping on the right side. Decreased dexterity of the right hand. Sensations are equal with no neglect. No ataxia for [id number] testing. Chest is clear, abdomen soft nontender. - Labs CBC & Chem 7: 09/09/21 08:11 09/09/21 08:11 Labs: Abnormal Lab Results - Last 24 Hours (Table) 09/02/21 09/07/21 09/07/21 Range/Units 08:52 18:21 18:24 WBC (3.8-10.6) k/uL RBC (4.30-5.90) m/uL Hgb (13.0-17.5) gm/dL Neutrophils # (1.3-7.7) k/uL Sodium (137-145) mmol/L Carbon Dioxide (22-30) mmol/L Glucose (74-99) mg/dL POC Glucose (mg/dL) 245 H 204 H (75-99) mg/dL Crossmatch See Detail 09/07/21 09/08/21 09/08/21 Range/Units 20:00 05:44 05:44 WBC 12.1 H (3.8-10.6) k/uL RBC 4.23 L (4.30-5.90) m/uL Hgb 12.9 L (13.0-17.5) gm/dL Neutrophils # 9.9 H (1.3-7.7) k/uL Sodium 135 L (137-145) mmol/L Carbon Dioxide 20 L (22-30) mmol/L Glucose 156 H (74-99) mg/dL POC Glucose (mg/dL) 226 H (75-99) mg/dL Crossmatch 09/08/21 09/08/21 Range/Units 06:31 11:19 WBC (3.8-10.6) k/uL RBC (4.30-5.90) m/uL Hgb (13.0-17.5) gm/dL Neutrophils # (1.3-7.7) k/uL Sodium (137-145) mmol/L Carbon Dioxide (22-30) mmol/L Glucose (74-99) mg/dL POC Glucose (mg/dL) 145 H 193 H (75-99) mg/dL Crossmatch Assessment and Plan Assessment: * Probable acute ischemic stroke, with mild aphasia, dysarthria, right facial droop and very minimal right pronator drift. NIH stroke scale is 4. Mechanis m of stroke could be related to distal embolism from chronic left ICA occlusion, versus cerebral ischemia from ?hypotension (if any perioperatively), versus related to cardioembolism. * Status post TAVR for severe aortic valve stenosis this morning. * Atrial fibrillation, on Xarelto (on hold for last 4 days) * Diabetes * Hypertension * Chronic left ICA occlusion * Obesity * Peripheral vascular disease. * History of tobacco use Plan: * Patient has clinically improved. * Patient has chronic left ICA occlusion. Patient was not a candidate for TPA or mechanical thrombectomy. Discussed with neuro intervention Dr. Bazzi. * Patient has received Plavix 300 mg loading dose yesterday morning. Continue Plavix 75 mg daily. * Continue Xarelto 20 mg daily. * Avoid hypotension particularly less than 130 systolic. * Continue close neuro checks. * Await MRI brain, MRA head. * Carotid Doppler was done recently, and patient already has chronically occluded left ICA. * Patient's hemoglobin A1c 8.7 on 07/21/2021. Recommend optimize control of diabetes to target A1c <7.0. * Lipid panel with cholesterol 105, LDL 43, HDL 29 and triglycerides 158 on 07/21/2021. Continue Lipitor 40 mg. * Tobacco cessation. * Patient to be transferred to stepdown unit. We will follow.
[2021-09-09 11:52] LABS: Glucose,Whole Blood 187 mg/dL (75-99)
--- NOTE | 2021-09-09 11:58 | MR ---
EXAMINATION TYPE: MR brain wo con DATE OF EXAM: 09/09/2021 COMPARISON: CT brain 2 days ago HISTORY: CVA, chronic left ICA occlusion. Aphasia after recent aortic valve replacement surgery. TECHNIQUE: Multiplanar, multisequence imaging of the brain and brainstem is performed without IV cont rast. FINDINGS: Diffusion weighted images demonstrate area of increased signal on diffusion weighted images with dimi nished signal on ADC mapping involving the anterior aspect of the thalamus with T1 hypointensity and T2 hyperintensity measuring 2.2 x 1.2 x 1.5 cm. There is mild to moderate ventricular and sulcal prominence. Some scattered foci of T2 hyperintensity is seen throughout the white matter bilaterally. Midline structures demonstrate normal morphology. The craniocervical junction appears within normal limits. Normal vascular flow voids are present. Mild mucosal thickening and patchy opacification of t he ethmoid sinuses bilaterally. Globes are intact bilaterally. IMPRESSION: There is confirmation of acute infarct anterior left thalamus measuring 2.2 x 1.2 x 1.5 c m on background of mild to moderate diffuse cerebral atrophy and mild chronic small vessel ischemic c hanges A Yellow level critical message alert has been initiated for Fabián Hernandez MD~[id number] via the [employer] Critical Results System on 09/09/2021 11:54 AM. This message alert has been sent to Fabián Hernandez MD~[id number] via the preferences provided by the clinician for the receipt of Radiology Critical Findin gs. Message ID [id number].
--- NOTE | 2021-09-09 12:06 | MR ---
EXAMINATION TYPE: MR angio head wo con DATE OF EXAM: 09/09/2021 COMPARISON: NONE HISTORY: CVA, chronic left ICA occlusion TECHNIQUE: Time of flight images focusing on the [place] were performed without contrast.. 2-D and 3-D postprocessing imaging is performed. FINDINGS: Dominant left vertebral artery. Vertebral arteries are patent to basilar junction. No signi ficant focal stenosis or aneurysm in the posterior circulation. There are patent small caliber bilate ral posterior communicating arteries. Images of the anterior circulation show nonvisualized left internal carotid artery consistent with kn own chronic complete occlusion. Some atherosclerotic changes on the right causes narrowing but suspec zully under 50%. Patent anterior communicating artery fills the anterior circulation or [place]. No aneurysm is identified. Fenestrated or duplicated anterior communicating artery is seen. IMPRESSION: Chronic occluded distal left internal carotid artery. No significant focal stenosis or an eurysm at the level of the [place].
[2021-09-09 12:25] VITALS: BP 131/73; PULSE 97; RESP 18
--- NOTE | 2021-09-09 14:43 | P.DS ---
Providers Date of admission: 09/07/21 05:43 Expected date of discharge: 09/09/21 Attending physician: Anthony Servin Consults: 09/06/21 07:04 Consult to Anesthesia Routine Consulting Provider: Anesthesia,Services Consult Reason/Comments: Cardiac Surgery Pre-Op 09/07/21 10:44 Consult Physician Routine Consulting Provider: Fabián Hernandez Consult Reason/Comments: [employer] Department Manager Consult: post cardiac surgery Do you want consulting provider notified?: Yes 09/07/21 10:52 Consult Physician Routine Consulting Provider: Bravo Joya Consult Reason/Comments: post tavr Do you want consulting provider notified?: Already Contacted 09/07/21 15:37 Consult Physician Stat Consulting Provider: Gemini Pradhan Consult Reason/Comments: code stroke Do you want consulting provider notified?: Already Contacted Primary care physician: Radha Fountain Hospital Course: MEDICAL HISTORY: 1. Calcified aortic valve with severe symptomatic aortic valve stenosis 2. Hypertension 3. Hyperlipidemia, treated 4. Diastolic heart failure 5. Chronic atrial fibrillation on Xarelto for anticoagulation 6. Insulin independent diabetes, preprocedure A1c 8.7% 7. PAD with left SFA/iliac stenting and subsequent bypass 8. Left ICA stenosis 100% 9. Previous tobacco dependence, preprocedure FEV1 101% of predicted 10. Acute infarct anterior left thalamus PROCEDURE: 1. Direct aortic access utilizing dale-sternotomy and aortic valve implantation using a 29 mm Core Valve Evolute-Pro Plus 2. Transesophageal echocardiography performed by anesthesia 3. Ultrasound-guided access and repair of right femoral artery access site by Perclose closure device 4. Placement of temporary pacemaker wire 5. Aortic root angiography HISTORY OF PRESENT ILLNESS: This is a 76-year-old gentleman who follows on an outpatient basis with Dr. Fountain for primary care and Dr. Joya for cardiology. He has a known history of severe aortic stenosis and has been symptomatic with increased exertional dyspnea as well as occasional dizziness. He had been referred to structural heart clinic for evaluation for transcatheter aortic valve replacement after heart catheterization and transesophageal echocardiogram were completed. Echocardiography demonstrated systolic function with EF 45-50%, aortic valve area 0.6 cm with a peak/mean gradient 66/40 mmHg. Heart catheterization showed mid RCA stenosis 60%. After workup was completed STS risk score was calculated along with incremental risk and the patient was felt to be very high risk for surgical aortic valve replacement, therefore transcatheter aortic valve replacement was recommended. The usual course of TAVR was discussed in detail the patient, risks and benefits were reviewed, shared decision making between cardiology, surgery, and the patient/family took place, and the patient consented to proceed with the procedure. HOSPITAL COURSE: The patient was brought to the hospital on 09/07/2021, was taken to the extended stay area, prepared in the usual fashion, and subsequently taken to the operating room where Dr. Joya and Dr. Servin completed TAVR procedure under general anesthesia with fluoroscopy and DAVON with a direct aortic approach utilizing dale-sternotomy. The valve was deployed under rapid ventricular pacing and proceeded without event. At the end of the procedure there was trace paravalvular leak, mean gradient 3 mmHg, hemodynamics were felt to be acceptable. Upon completion of the procedure the patient was extubated and was transferred to the cardiovascular intensive care unit where he was recovered and monitored hemodynamically. He developed facial droop and slurred speech, code stroke was called, CT of the brain was completed demonstrating no acute process. Neurology was consulted, MRI of the brain was completed M and straining acute infarct of the anterior left thalamus. The patient's symptoms did resolve. His oxygen was titrated down, he was tolerating oral diet, his marissa n was controlled, and he was evaluated by physical and occupational therapy. Follow-up TTE demonstrated normal left ventricular systolic function, normally functioning bioprosthetic valve with peak/mean gradient 17.34/10.33 mmHg and maximum velocity 2.08 m/s. He was ready to be discharged to home with home PT/OT on postoperative day #2. He received written and verbal instruction regarding his medications, activity restrictions, signs and symptoms requiring physician notification, and follow-up appointments. Patient Condition at Discharge: Stable Plan - Discharge Summary Discharge Rx Participant: No New Discharge Prescriptions: New Clopidogrel [Plavix] 75 mg PO DAILY #30 tab Tamsulosin [Flomax] 0.4 mg PO PC-SUPPER #30 capsule Acetaminophen Tab [Tylenol] 650 mg PO Q4HR PRN tab PRN Reason: Fever And/ Or Mild Pain (1-3) Continue metFORMIN HCL [Glucophage] 500 mg PO BID amLODIPine [Norvasc] 5 mg PO QAM Insulin Glargine,Hum.rec.anlog [Toujeo Solostar] 80 units SQ HS Atorvastatin [Lipitor] 40 mg PO HS Dulaglutide [Trulicity] 3 mg SQ MO Rivaroxaban [Xarelto] 20 mg PO HS Metoprolol Succinate (ER) [Toprol XL] 50 mg PO QAM lisinopriL 40 mg PO QAM glipiZIDE [Glucotrol] 5 mg PO AC-BID Discharge Medication List metFORMIN HCL [Glucophage] 500 mg PO BID 03/03/16 [History] amLODIPine [Norvasc] 5 mg PO QAM 06/22/17 [History] Atorvastatin [Lipitor] 40 mg PO HS 07/06/21 [History] Dulaglutide [Trulicity] 3 mg SQ MO 07/06/21 [History] Insulin Glargine,Hum.rec.anlog [Toujeo Solostar] 80 units SQ HS 07/06/21 [History] Metoprolol Succinate (ER) [Toprol XL] 50 mg PO QAM 07/06/21 [History] Rivaroxaban [Xarelto] 20 mg PO HS 07/06/21 [History] glipiZIDE [Glucotrol] 5 mg PO AC-BID 07/06/21 [History] lisinopriL 40 mg PO QAM 07/06/21 [History] Acetaminophen Tab [Tylenol] 650 mg PO Q4HR PRN tab 09/09/21 [Rx] Clopidogrel [Plavix] 75 mg PO DAILY #30 tab 09/09/21 [Rx] Tamsulosin [Flomax] 0.4 mg PO PC-SUPPER #30 capsule 09/09/21 [Rx] Follow up Appointment(s)/Referral(s): Hedy Fischer NPC [Nurse Practitioner] - 11/11/21 1:30 pm (Your appointment will be at the valve clinic within [facility] [place], [address] [place] [address] [address] prior to your echo appointment at [facility]) Rober Gaines MD [REFERRING] - 2 Weeks (Should see neurologist in about 2 weeks for post stroke care; office will call with appointment) Bravo Joya DO [STAFF PHYSICIAN] - 09/16/21 2:00 pm (Your appointment 09/16/[address] Joya for groin check. You also have an appointment [facility] 11/11/21 @ 2 pm for a 30 day post TAVR echo) Radha Fountain DO [Primary Care Provider] - As Needed Nurse,[facility] [NON-STAFF] - Activity/Diet/Wound Care/Special Instructions: DISCHARGE INSTRUCTIONS: 1. No driving for 1 week, or until physician gives their ok. 2. No lifting, pushing, or pulling more than 5-10 pounds for 1 week. 3. Hold both groins when you cough or sneeze for the next 2 weeks. Bruising is common, but report increased swelling, pain or fever >101F 4. Shower daily. No pool, hot tub, or bathtub for 1 week 5. No powders, lotions, ointments on incisions. 6. No straining, including for bowel movements. Use stool softner if necessary 7. Stairs are not an issue. Go slowly, using handrail and take 1 step at a time. Ambulate several times daily 8. Continue pain control per as needed orders. 9. Take only the medications listed on your discharge form 10. Eat low salt (limited to 2 grams or 2000 milligrams) daily, avoid adding salt, avoid canned/processed foods 11. Take your weight daily in the morning and record, bring with you to your follow up appointments 12. Keep all follow up appointments. You will need a valve clinic appointment at 30 days and 1 year post procedure for follow up 13. You have been referred to and are expected to begin Cardiac Rehab in approximately 4 weeks. 14. You will need antibiotics prior to any dental work, including cleanings, and any surgeries to prevent Endocarditis (bacterial infection in your heart) For any questions or concerns please call your valve coordinators: Hedy Gipson @ Discharge Disposition: HOME WITH HOME HEALTH SERVICES
--- NOTE | 2021-09-09 17:06 | P.PN ---
Subjective Progress Note Date: 09/09/21 Patient was seen in 383 bed 1. Patient is sitting in the recliner, appears very comfortable. Denies headache. Slurring has improved. No new neurological symptoms. Objective - Vital Signs Vital signs: Vital Signs Temp 98.7 F 09/09/21 08:00 Pulse 97 09/09/21 12:00 Resp 18 09/09/21 12:00 BP 131/73 09/09/21 12:00 Pulse Ox 96 09/09/21 12:00 Intake & Output 09/08/21 09/09/21 09/09/21 18:59 06:59 18:59 Intake Total 1430 120 Output Total 1625 300 0 Balance -195 -300 120 Weight 125.8 kg 123.2 kg Intake: IV 150 Lactated Ringers 1,000 ml 50 @ 50 mls/hr IV .Q20H ELIO Rx#:[id number] ceFAZolin 3 gm In Sodium 100 Chloride 0.9% 100 ml @ 100 mls/hr IVPB Q8HR ELIO Rx#:[id number] Intake, IV Titration 200 Amount Magnesium Sulfate-D5w Pmx 200 1 gm In Dextrose/Water 1 100ml.bag @ 100 mls/hr IVPB Q1H ELIO Rx#: [id number] Oral 1080 120 Output: Urine 1625 300 0 Stool 0 Urine/Stool Mix 0 Other: Voiding Method Urinal # Voids 0 # Bowel Movements 0 ABP, PAP, CO, CI - Last Documented Arterial Blood Pressure 140/62 - Exam Patient's mental status is normal. He is fully alert and awake. Speech is mildly dysarthric. No aphasia. He can name objects all presented including knuckles, earlobe, pen, eyeglasses, button, button hole. He can repeat very well. Comprehension is perfect. Cranial nerves revealed symmetric face. No more facial droop. Tongue protrudes the midline. Visual pelaez are full. On muscle strength testing patient has right pronator drift. Deltoids are 5- bilaterally. Rest of the muscle strength is normal. Patient has decreased finger tapping on the right side. Decreased dexterity of the right hand. Sensations are equal with no neglect. No ataxia for [id number] testing. Chest is clear, abdomen soft nontender. - Labs CBC & Chem 7: 09/09/21 08:11 09/09/21 08:11 Labs: Abnormal Lab Results - Last 24 Hours (Table) 09/08/21 09/08/21 09/09/21 Range/Units 16:55 20:32 06:07 WBC (3.8-10.6) k/uL RBC (4.30-5.90) m/uL Hgb (13.0-17.5) gm/dL MCHC (31.0-37.0) g/dL Sodium (137-145) mmol/L BUN (9-20) mg/dL Glucose (74-99) mg/dL POC Glucose (mg/dL) 266 H 275 H 157 H (75-99) mg/dL Magnesium (1.6-2.3) mg/dL 09/09/21 09/09/21 09/09/21 Range/Units 08:11 08:11 11:51 WBC 16.5 H (3.8-10.6) k/uL RBC 4.26 L (4.30-5.90) m/uL Hgb 12.5 L (13.0-17.5) gm/dL MCHC 30.4 L (31.0-37.0) g/dL Sodium 136 L (137-145) mmol/L BUN 22 H (9-20) mg/dL Glucose 161 H (74-99) mg/dL POC Glucose (mg/dL) 187 H (75-99) mg/dL Magnesium 2.4 H (1.6-2.3) mg/dL Assessment and Plan Assessment: * Acute ischemic stroke, with mild aphasia, dysarthria, right facial droop and very minimal right pronator drift. NIH stroke scale is 4. Mechanism of stroke most likely related to cardioembolism, versus distal embolism from chronic left ICA occlusion. No watershed ischemia noticed. * Status post TAVR for severe aortic valve stenosis. * Atrial fibrillation, on Xarelto (on hold for last 4 days) * Diabetes * Hypertension * Chronic left ICA occlusion * Obesity * Peripheral vascular disease. * History of tobacco use Plan: * Patient has clinically improved. His NIH stroke scale is down to 2. * Patient has chronic left ICA occlusion. Patient was not a candidate for TPA or mechanical thrombectomy. Discussed with neuro intervention Dr. Bazzi. * MRI of the brain confirmed an acute infarct anterior left thalamus measuring 2.2 x 1.2 x 1.5 cm on the background of mild to moderate diffuse cerebral atrophy and mild chronic small vessel ischemic change. On my review, there is another small, tiny area of acute ischemia involving the right occipital lobe. This is suggestive of cardioembolic phenomenon. * MRA of the brain confirmed chronic occluded distal left ICA. No significant focal stenosis or aneurysm at the level of campo of [place]. * Continue Plavix 75 mg daily and Xarelto 20 mg daily. * Avoid hypotension particularly less than 130 systolic. * Carotid Doppler was done recently, and patient already has chronically occluded left ICA. * Patient's hemoglobin A1c 8.7 on 07/21/2021. Recommend optimize control of diabetes to target A1c <7.0. * Lipid panel with cholesterol 105, LDL 43, HDL 29 and triglycerides 158 on 07/21/2021. Continue Lipitor 40 mg. * Tobacco cessation. * Patient clear for discharge. Recommend follow-up with neurologist in the outpatient clinic in 1-2 weeks.
== END 2021-09-09 15:34 | disposition home health service (06) | DRG 266 ==
LOC: 2ORMAIN 05:43 → 2SICU 10:37 → 3SCARD 09-08 12:26
PROVIDERS: ADMIT Thoracic Surgery (Cardiothoracic Vascular Surgery); ATTEND Thoracic Surgery (Cardiothoracic Vascular Surgery)
PROC: B3101ZZ Fluoroscopy of Thoracic Aorta using Low Osmolar Contrast (ICD-10-PCS; 2021-09-07)
PROC: 02RF38Z Replacement of Aortic Valve with Zooplastic Tissue, Percutaneous Approach (ICD-10-PCS; principal; 2021-09-07 08:00)
PROC: 5A1223Z Performance of Cardiac Pacing, Continuous (ICD-10-PCS; 2021-09-07 08:00)
DX: I35.2 Nonrheumatic aortic (valve) stenosis with insufficiency (principal); Z00.6 Encounter for examination for normal comparison and control in clinical research program; I63.9 Cerebral infarction, unspecified; I48.19 Other persistent atrial fibrillation; I50.32 Chronic diastolic (congestive) heart failure; R47.01 Aphasia; Z68.42 Body mass index [BMI] 45.0-49.9, adult; E66.01 Morbid (severe) obesity due to excess calories; I25.10 Atherosclerotic heart disease of native coronary artery without angina pectoris; I11.0 Hypertensive heart disease with heart failure; E11.51 Type 2 diabetes mellitus with diabetic peripheral angiopathy without gangrene; E78.5 Hyperlipidemia, unspecified; I65.22 Occlusion and stenosis of left carotid artery; I87.2 Venous insufficiency (chronic) (peripheral); Z87.891 Personal history of nicotine dependence; R29.704 NIHSS score 4; R29.810 Facial weakness; Z79.01 Long term (current) use of anticoagulants; Z79.02 Long term (current) use of antithrombotics/antiplatelets; Z79.4 Long term (current) use of insulin; Z95.820 Peripheral vascular angioplasty status with implants and grafts; Z79.82 Long term (current) use of aspirin; Z79.899 Other long term (current) drug therapy; Z86.73 Personal history of transient ischemic attack (TIA), and cerebral infarction without residual deficits; Z88.1 Allergy status to other antibiotic agents; Z91.048 Other nonmedicinal substance allergy status; Z83.3 Family history of diabetes mellitus; Z80.8 Family history of malignant neoplasm of other organs or systems
CPT/HCPCS: 33210; 33365; 36415; 70450; 70544; 70551; 71045; 71046; 80048; 80053; 82330; 83735; 85025; 85027; 85610; 85730; 86850; 86891; 86900; 86901; 86920; 93306; 93312; 93320; 93325

== ENCOUNTER 2021-09-10 13:32 | Inpatient (IN) | payer MEDICARE ==
[2021-09-10] MEDS ORDERED: SODIUM CHLORIDE 0.9% 500 ML 500 ML IV ONE (14:24)
--- NOTE | 2021-09-10 14:29 | ED ---
General Adult HPI - General Chief complaint: Urogenital Stated complaint: Urogenital Bleed/Blood in Urine Source: patient Mode of arrival: wheelchair Limitations: no limitations - History of Present Illness Initial comments: 76-year-old male with past medical history of A. fib, diabetes, hypertension who presents to the emergency department for hematuria. Patient was discharged from our facility yesterday after he had TAVR procedure. Son states that the patient is minimally getting up and around. He has only gotten up twice and that was to use the restroom. The patient began urinating bright red clots. Patient admits that he did have some hematuria while hospitalized however failed to tell staff. He denies history of similar. He has taken Xarelto for A. fib and was recently placed on Plavix for his valve replacement. Denies abdominal pain or difficulty urinating. Denies any black or bloody stools. No vomiting. Reports to improve shortness of breath. No chest pain. No fevers. No other alleviating, precipitating or modifying factors - Related Data Home Medications Medication Instructions Recorded Confirmed metFORMIN HCL [Glucophage] 500 mg PO BID 03/03/16 09/10/21 amLODIPine [Norvasc] 5 mg PO DAILY 06/22/17 09/10/21 Atorvastatin [Lipitor] 40 mg PO HS 07/06/21 09/10/21 Dulaglutide [Trulicity] 3 mg SQ MO 07/06/21 09/10/21 Insulin Glargine,Hum.rec.anlog 80 units SQ HS 07/06/21 09/10/21 [Nishant Solostjunior] Metoprolol Succinate (ER) [Toprol 50 mg PO DAILY 07/06/21 09/10/21 XL] Rivaroxaban [Xarelto] 20 mg PO HS 07/06/21 09/10/21 glipiZIDE [Glucotrol] 5 mg PO AC-BID 07/06/21 09/10/21 lisinopriL 40 mg PO DAILY 07/06/21 09/10/21 Ammonium Lactate Lotion 1 applic TOPICAL BID PRN 09/10/21 09/10/21 [Lac-Hydrin 12% Lotion] traMADol HCL [Ultram] 50 mg PO Q4HR PRN 09/10/21 09/10/21 Previous Rx's Medication Instructions Recorded Acetaminophen Tab [Tylenol] 650 mg PO Q4HR PRN tab 09/09/21 Clopidogrel [Plavix] 75 mg PO DAILY #30 tab 09/09/21 Tamsulosin [Flomax] 0.4 mg PO PC-SUPPER #30 capsule 09/09/21 Allergies Allergy/AdvReac Type Severity Reaction Status Date / Time vancomycin Allergy Dyspnea/sha Verified 09/10/21 13:40 ky neoprene Allergy Rash/Hives Uncoded 09/10/21 13:40 Review of Systems ROS Statement: Those systems with pertinent positive or pertinent negative responses have been documented in the HPI. ROS Other: All systems not noted in ROS Statement are negative. 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 COLONOSCOPY, EGD, left leg bypass, PICC line-later removed Past Anesthesia/Blood Transfusion Reactions: Motion Sickness Additional Past Anesthesia/Blood Transfusion Reaction / Comment(s): no hx blood transfusion Past Psychological History: No Psychological Hx Reported Smoking Status: Former smoker Past Alcohol Use History: Occasional Past Drug Use History: None Reported - Past Family History Father Family Medical History: Cancer Additional Family Medical History / Comment(s): throat CA that spread to his brain Mother Additional Family Medical History / Comment(s): heart problems Brother(s) Family Medical History: Diabetes Mellitus General Exam Limitations: no limitations Course Vital Signs 09/10/21 09/10/21 09/10/21 13:40 14:12 15:17 Temperature 97.8 F Pulse Rate 62 67 64 Respiratory 18 20 20 Rate Blood Pressure 89/57 96/62 95/77 O2 Sat by Pulse 100 96 94 L Oximetry 09/10/21 16:46 Temperature 98.1 F Pulse Rate 91 Respiratory 20 Rate Blood Pressure 94/62 O2 Sat by Pulse 93 L Oximetry Medical Decision Making - Medical Decision Making Upon arrival patient was placed into room 27. A thorough history and physical exam was performed. IV access was established and laboratory studies are conducted. Labs are reviewed. White count 15.9. Sodium 130. Creatinine 2.1. Glucose 291. Troponin 0.054. Urinalysis has greater than 182 red blood cells, 14 white blood cells and occasional bacteria. Patient was given a dose of antibiotics and Van is placed due to urinary retention. Called and spoke with Dr. Patel who requested that the patient be admitted to medicine. Spoke with Dr. Tapia who agreed to admit the patient. He was taken to floor in stable condition - Lab Data Result diagrams: 09/10/21 14:12 09/10/21 14:12 Lab Results 09/10/21 09/10/21 09/10/21 Range/Units 14:05 14:12 14:12 WBC 15.9 H (3.8-10.6) k/uL RBC 3.92 L (4.30-5.90) m/uL Hgb 12.0 L (13.0-17.5) gm/dL Hct 36.8 L (39.0-53.0) % MCV 93.9 (80.0-100.0) fL MCH 30.7 (25.0-35.0) pg MCHC 32.7 (31.0-37.0) g/dL RDW 14.1 (11.5-15.5) % Plt Count 233 (150-450) k/uL MPV 8.8 Neutrophils % 81 % Lymphocytes % 9 % Monocytes % 7 % Eosinophils % 0 % Basophils % 0 % Neutrophils # 12.8 H (1.3-7.7) k/uL Lymphocytes # 1.4 (1.0-4.8) k/uL Monocytes # 1.1 H (0-1.0) k/uL Eosinophils # 0.0 (0-0.7) k/uL Basophils # 0.0 (0-0.2) k/uL PT 12.9 H (9.0-12.0) sec INR 1.2 H (<1.2) APTT 33.3 H (22.0-30.0) sec Sodium 130 L (137-145) mmol/L Potassium 4.4 (3.5-5.1) mmol/L Chloride 97 L (98-107) mmol/L Carbon Dioxide 19 L (22-30) mmol/L Anion Gap 14 mmol/L BUN 48 H (9-20) mg/dL Creatinine 2.10 H (0.66-1.25) mg/dL Est GFR (CKD-EPI)AfAm 35 (>60 ml/min/1.73 sqM) Est GFR (CKD-EPI)NonAf 30 (>60 ml/min/1.73 sqM) Glucose 291 H (74-99) mg/dL Calcium 8.3 L (8.4-10.2) mg/dL Total Bilirubin 1.2 (0.2-1.3) mg/dL AST 21 (17-59) U/L ALT 14 (4-49) U/L Alkaline Phosphatase 85 (38-126) U/L Troponin I (0.000-0.034) ng/mL NT-Pro-B Natriuret Pep pg/mL Total Protein 6.1 L (6.3-8.2) g/dL Albumin 3.3 L (3.5-5.0) g/dL Urine Color Urine Appearance (Clear) Urine pH (5.0-8.0) Ur Specific [place] (1.001-1.035) Urine Protein (Negative) Urine Glucose (UA) (Negative) Urine Ketones (Negative) Urine Blood (Negative) Urine Nitrite (Negative) Urine Bilirubin (Negative) Urine Urobilinogen (<2.0) mg/dL Ur Leukocyte Esterase (Negative) Urine RBC (0-5) /hpf Urine WBC (0-5) /hpf Amorphous Sediment (None) /hpf Urine Bacteria (None) /hpf 09/10/21 09/10/21 09/10/21 Range/Units 14:24 14:25 14:41 WBC (3.8-10.6) k/uL RBC (4.30-5.90) m/uL Hgb (13.0-17.5) gm/dL Hct (39.0-53.0) % MCV (80.0-100.0) fL MCH (25.0-35.0) pg MCHC (31.0-37.0) g/dL RDW (11.5-15.5) % Plt Count (150-450) k/uL MPV Neutrophils % % Lymphocytes % % Monocytes % % Eosinophils % % Basophils % % Neutrophils # (1.3-7.7) k/uL Lymphocytes # (1.0-4.8) k/uL Monocytes # (0-1.0) k/uL Eosinophils # (0-0.7) k/uL Basophils # (0-0.2) k/uL PT (9.0-12.0) sec INR (<1.2) APTT (22.0-30.0) sec Sodium (137-145) mmol/L Potassium (3.5-5.1) mmol/L Chloride (98-107) mmol/L Carbon Dioxide (22-30) mmol/L Anion Gap mmol/L BUN (9-20) mg/dL Creatinine (0.66-1.25) mg/dL Est GFR (CKD-EPI)AfAm (>60 ml/min/1.73 sqM) Est GFR (CKD-EPI)NonAf (>60 ml/min/1.73 sqM) Glucose (74-99) mg/dL Calcium (8.4-10.2) mg/dL Total Bilirubin (0.2-1.3) mg/dL AST (17-59) U/L ALT (4-49) U/L Alkaline Phosphatase (38-126) U/L Troponin I 0.054 H* (0.000-0.034) ng/mL NT-Pro-B Natriuret Pep 572 pg/mL Total Protein (6.3-8.2) g/dL Albumin (3.5-5.0) g/dL Urine Color Light Red Urine Appearance Cloudy (Clear) Urine pH 5.5 (5.0-8.0) Ur Specific [place] 1.019 (1.001-1.035) Urine Protein 1+ H (Negative) Urine Glucose (UA) 1+ H (Negative) Urine Ketones Negative (Negative) Urine Blood Moderate H (Negative) Urine Nitrite Negative (Negative) Urine Bilirubin Negative (Negative) Urine Urobilinogen <2.0 (<2.0) mg/dL Ur Leukocyte Esterase Negative (Negative) Urine RBC >182 H (0-5) /hpf Urine WBC 14 H (0-5) /hpf Amorphous Sediment Occasional H (None) /hpf Urine Bacteria Occasional H (None) /hpf Disposition Clinical Impression: TOMA (acute kidney injury), UTI (urinary tract infection), Urinary retention, Hematuria Disposition: ADMITTED IP TO THIS HOSP Condition: Stable Is patient prescribed a controlled substance at d/c from ED?: No Decision to Admit Reason: Admit from EC Decision Date: 09/10/21 Decision Time: 16:22
[2021-09-10 14:34] LABS: Basophils % (A) 0 %; Eosinophils % (A) 0 %; HCT 36.8 % (39.0-53.0); Lymphocytes # (A) 1.4 k/uL (1.0-4.8); Lymphocytes % (A) 9 %; MCH 30.7 pg (25.0-35.0); MCHC 32.7 g/dL (31.0-37.0); MCV 93.9 fL (80.0-100.0); Mean Platelet Volume 8.8; Monocytes # (A) 1.1 k/uL (0-1.0); Monocytes % (A) 7 %; Neutrophils # (A) 12.8 k/uL (1.3-7.7); Neutrophils % (A) 81 %; Platelet Count 233 k/uL (150-450); RBC 3.92 m/uL (4.30-5.90); RDW 14.1 % (11.5-15.5); WBC 15.9 k/uL (3.8-10.6)
[2021-09-10] MEDS: SODIUM CHLORIDE 0.9% 1,000 ML IV SCH (14:38)
[2021-09-10 14:46] LABS: INR 1.2 (<1.2); Partial Thromboplastin Time 33.3 sec (22.0-30.0); Prothrombin Time 12.9 sec (9.0-12.0)
[2021-09-10 14:58] LABS: Albumin 3.3 g/dL (3.5-5.0); Calcium 8.3 mg/dL (8.4-10.2); Potassium 4.4 mmol/L (3.5-5.1); Total Bilirubin 1.2 mg/dL (0.2-1.3); Total Protein 6.1 g/dL (6.3-8.2)
[2021-09-10 15:04] LABS: Amorphous Sediment,Urine Occasional /hpf; Appearance,Urine Cloudy (Clear); Bacteria,Urine Occasional /hpf; Bilirubin,Urine Negative (Negative); Blood,Urine Moderate (Negative); Color,Urine Light Red; Glucose,Urine (UA) 1+ (Negative); Ketones,Urine Negative (Negative); Leukocyte Esterase,Urine Negative (Negative); Nitrite,Urine Negative (Negative); PH, Urine 5.5 (5.0-8.0); Protein,Urine 1+ (Negative); RBC,Urine >182 /hpf (0-5); Specific Gravity,Urine 1.019 (1.001-1.035); Urobilinogen,Urine <2.0 mg/dL (<2.0); WBC,Urine 14 /hpf (0-5)
[2021-09-10] MEDS ORDERED: cefTRIAXone IN SWFI 1,000 MG/10 ML SYRINGE IVP STA (15:40)
[2021-09-10] MEDS ORDERED: NALOXONE 0.4 MG/ML 1 ML VIAL IV PRN (16:13)
[2021-09-10 17:14] LABS: Glucose,Whole Blood 303 mg/dL (75-99)
--- NOTE | 2021-09-10 17:16 | HP ---
HISTORY AND PHYSICAL DATE OF SERVICE: 09/10/2021 CHIEF COMPLAINTS: Hematuria as well as weakness and renal failure. HISTORY OF PRESENT ILLNESS: This 76-year-old gentleman with a past medical history of multiple problems, including atrial fibrillation, diabetes, hypertension, being followed by Dr. Fountain in the outpatient setting, was recently admitted for TAVR, which was performed in conjunction with Cardiothoracic Surgery as well as Cardiology. The patient had a sternotomy as well. Please refer to the previous records for details. The patient went home and then the patient's son, who is living with him, said the patient was progressively weak and had hematuria, and he had difficulties in managing the patient at home. The patient was taken to [facility] and was found to have some mild acute renal failure. The creatinine has gone up to 2.1 at this time. Patient was admitted for further evaluation and treatment. There is no history of any fever, rigors or chills. No history of headache, loss of consciousness, seizures. Van catheter has been inserted. PAST MEDICAL HISTORY: Recent TAVR, atrial fibrillation, diabetes mellitus, hypertension. HOME MEDICATIONS: Reviewed. They include metformin, lisinopril, glipizide. Doses are reviewed. ALLERGIES: VANCOMYCIN AND MORPHINE. FAMILY HISTORY: History of cancer. SOCIAL HISTORY: Previous history of smoking. REVIEW OF SYSTEMS: Fourteen-point review of systems negative except as mentioned earlier. PHYSICAL EXAMINATION: Pulse 64, blood pressure 95/57, respiration 20, temperature 97.8. HEENT: Conjunctivae normal. NECK: No jugular venous distention. CARDIOVASCULAR: S1, S2 muffled. RESPIRATION: Breath sounds diminished at the bases. A few scattered rhonchi. ABDOMEN: Soft, obese, non-tender. LEGS: No edema. No swelling. Van catheter in situ. Draining tea-colored urine. NERVOUS SYSTEM: No focal deficit. SKIN: No ulcer, rash, bleeding. JOINTS: No active deforming arthropathy. LABS: WBC 15.2, hemoglobin is 12. Troponin is noted. ASSESSMENT: 1. Acute renal failure with dehydration. 2. History of recent TAVR. 3. Hematuria. 4. Atrial fibrillation. 5. Diabetes mellitus. 6. Hypertension. RECOMMENDATIONS AND DISCUSSION: In this 76-year-old gentleman who presented with multiple medical issues, at this time we will monitor the patient closely. Otherwise, cautious IV fluids. Repeat labs in the morning. Resume the home medications. Hold off anticoagulants. Cardiothoracic surgery, cardiology and urology evaluations. Prognosis guarded because of multiple complex medical issues. Further recommendations to follow. Discussed with the patient and the patient's son at bedside at length. MMODL / IJN: [id number] /
[2021-09-10] MEDS ORDERED: AMMONIUM LACTATE 12% LOTION 225 GM BTL TOPICAL PRN (17:24)
[2021-09-10] MEDS ORDERED: ACETAMINOPHEN TAB 325 MG TAB PO PRN (17:24)
--- NOTE | 2021-09-10 17:25 | XR ---
EXAMINATION TYPE: XR chest 1V portable DATE OF EXAM: 09/10/2021 COMPARISON: Yesterday HISTORY: Short of breath heart surgery. TECHNIQUE: Single view FINDINGS: Heart is enlarged. There is no heart failure. There are sternal wires. Cardiac valve surger y. Thoracic aorta is atheromatous. There are chest leads. There is no pleural effusion. IMPRESSION: Cardiomegaly. No heart failure seen. Minimal pleural reaction left lung base is improved compared to last exam.
[2021-09-10] MEDS: INSULIN ASPART (NovoLOG) 100 UNIT/ML VIAL SQ SCH ×3 (20:22→20:48)
[2021-09-10 20:26] LABS: Glucose,Whole Blood 393 mg/dL (75-99)
[2021-09-10] MEDS: ATORVASTATIN 40 MG TAB PO SCH (20:41)
[2021-09-10] MEDS: TAMSULOSIN 0.4 MG CAP.ER.24H PO SCH (20:41)
[2021-09-10] MEDS ORDERED: RIVAROXABAN 20 MG TAB PO SCH (21:00)
[2021-09-10] MEDS ORDERED: traMADol 50 MG TAB PO SCH (21:00)
[2021-09-11] MEDS: INSULIN ASPART (NovoLOG) 100 UNIT/ML VIAL SQ SCH ×4 (06:30→20:56)
[2021-09-11 06:37] LABS: Glucose,Whole Blood 356 mg/dL (75-99)
[2021-09-11] MEDS ORDERED: traMADol 50 MG TAB PO PRN (07:24)
[2021-09-11] MEDS: amLODIPine 5 MG TAB PO SCH (08:13)
[2021-09-11] MEDS: METOPROLOL SUCCINATE (ER) 50 MG TAB.ER.24H PO SCH (08:13)
[2021-09-11 08:14] LABS: Basophils % (A) 0 %; Eosinophils % (A) 0 %; HCT 37.1 % (39.0-53.0); HGB 11.7 gm/dL (13.0-17.5); Lymphocytes # (A) 1.5 k/uL (1.0-4.8); Lymphocytes % (A) 10 %; MCH 30.2 pg (25.0-35.0); MCHC 31.6 g/dL (31.0-37.0); MCV 95.4 fL (80.0-100.0); Monocytes # (A) 1.1 k/uL (0-1.0); Monocytes % (A) 7 %; Neutrophils # (A) 12.7 k/uL (1.3-7.7); Neutrophils % (A) 81 %; Platelet Count 262 k/uL (150-450); RBC 3.89 m/uL (4.30-5.90); RDW 14.2 % (11.5-15.5); WBC 15.8 k/uL (3.8-10.6)
[2021-09-11] MEDS: SODIUM CHLORIDE 0.9% 1,000 ML IV SCH ×2 (08:14→20:57)
[2021-09-11] MEDS: CLOPIDOGREL 75 MG TAB PO SCH (08:14)
[2021-09-11 08:30] LABS: Albumin 3.2 g/dL (3.5-5.0); Potassium 4.4 mmol/L (3.5-5.1); Total Bilirubin 1.4 mg/dL (0.2-1.3); Total Protein 6.1 g/dL (6.3-8.2)
--- NOTE | 2021-09-11 08:57 | P.GSCN ---
History of Present Illness Consult date: 09/11/21 Reason for Consult: Recent TAVR Requesting physician: Brody Tapia History of present illness: This is a 76-year-old gentleman well known to our service who follows on an outpatient basis with Dr. Fountain for primary care and Dr. Joya for cardiology. 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 He was just discharged 2 days ago from [facility] after TAVR procedure. Subsequent to the TAVR he was noted to have facial droop and slurring of his words, a code stroke was called, CT was negative, however MRI of the brain was completed demonstrating acute infarct of the anterior left thalamus. The patient's sympt oms did resolve. He was seen by physical and occupational therapy in the hospital as well as physical and occupational home therapy were ordered at discharge. In addition the patient did have some urinary retention requiring straight catheterization 2 which resolved with initiation of Flomax. The patient was cleared from all consultants to be discharged on 09/09/2021. Over the course of the evening and the next day the patient was noted to have blood in his urine including significant amount of clots per the patient's son. The patient was requested to come back to the emergency room at [facility] and the patient admitted he noticed some blood in his urine prior to disch arge but he neglected to inform staff. In the emergency room lab work revealed WBC 15.9, hemoglobin stable at 12, INR 1.2, BUN 48, creatinine 2.1, urinalysis revealed moderate blood with greater than 182 RBCs, occasional bacteria, 14 wbc's, negative nitrites and negative leukocyte esterase. Van catheter was placed. The patient was admitted for observation secondary to hematuria and acute kidney injury. Consultation was placed to cardiothoracic surgery as the patient is known to our service. Review of Systems Review of systems was completed and was negative except as noted - Constitutional Reports weakness - Genitourinary Reports hematuria 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 COLONOSCOPY, EGD, left leg bypass, PICC line-later removed; transcatheter aortic valve replacement through direct aortic access with dale-sternotomy using 29 mm Core-Valve Evolut- Pro Plus Past Anesthesia/Blood Transfusion Reactions: Motion Sickness Additional Past Anesthesia/Blood Transfusion Reaction / Comm: no hx blood t ransfusion Past Psychological History: No Psychological Hx Reported Smoking Status: Former smoker Past Alcohol Use History: Occasional Past Drug Use History: None Reported - Past Family History Father Family Medical History: Cancer Additional Family Medical History / Comment(s): throat CA that spread to his brain Mother Additional Family Medical History / Comment(s): heart problems Brother(s) Family Medical History: Diabetes Mellitus Medications and Allergies Home Medications Medication Instructions Recorded Confirmed Type metFORMIN HCL [Glucophage] 500 mg PO BID 03/03/16 09/10/21 History amLODIPine [Norvasc] 5 mg PO DAILY 06/22/17 09/10/21 History Atorvastatin [Lipitor] 40 mg PO HS 07/06/21 09/10/21 History Dulaglutide [Trulicity] 3 mg SQ MO 07/06/21 09/10/21 History Insulin Glargine,Hum.rec.anlog 80 units SQ HS 07/06/21 09/10/21 History [Toujeo Solostar] Metoprolol Succinate (ER) [Toprol 50 mg PO DAILY 07/06/21 09/10/21 History XL] Rivaroxaban [Xarelto] 20 mg PO HS 07/06/21 09/10/21 History glipiZIDE [Glucotrol] 5 mg PO AC-BID 07/06/21 09/10/21 History lisinopriL 40 mg PO DAILY 07/06/21 09/10/21 History Acetaminophen Tab [Tylenol] 650 mg PO Q4HR PRN tab 09/09/21 09/10/21 Rx Clopidogrel [Plavix] 75 mg PO DAILY #30 tab 09/09/21 09/10/21 Rx Tamsulosin [Flomax] 0.4 mg PO PC-SUPPER #30 capsule 09/09/21 09/10/21 Rx Ammonium Lactate Lotion 1 applic TOPICAL BID PRN 09/10/21 09/10/21 History [Lac-Hydrin 12% Lotion] traMADol HCL [Ultram] 50 mg PO Q4HR PRN 09/10/21 09/10/21 History Allergies Allergy/AdvReac Type Severity Reaction Status Date / Time vancomycin Allergy Dyspnea/sha Verified 09/10/21 13:40 ky neoprene Allergy Rash/Hives Uncoded 09/10/21 13:40 Surgical - Exam Vital Signs Temp Pulse Resp BP Pulse Ox 97.8 F 62 18 89/57 100 09/10/21 13:40 09/10/21 13:40 09/10/21 13:40 09/10/21 13:40 09/10/21 13:40 CONSTITUTIONAL: Awake and alert, appears comfortable, cooperative, well- developed, well-nourished, no pain, no acute distress EYES: Pupils equal, round, reactive to light, normal ocular movement ENT: Moist mucous membranes without oral lesions present NECK: No masses, no bruits, trachea midline RESPIRATORY: Lungs sounds clear to auscultation bilaterally. Respirations even, nonlabored. Currently on room air with oxygen saturation 94%. Strong cough. CARDIOVASCULAR: S1, S2 present. Irregular rate and rhythm, controlled atrial fibrillation on telemetry. Palpable peripheral pulses bilaterally. Trace bilateral lower extremity edema present. No calf pain or tenderness noted. GASTROINTESTINAL: Abdomen soft, nontender, nondistended without masses or organomegaly noted. There is no rebound or guarding present. Active bowel sounds present 4 quadrants. GENITOURINARY: Van catheter present with yellow urine, small amount of sediment present, no gross hematuria present INTEGUMENTARY: Skin is warm and dry with evidence of good perfusion. Dale- sternotomy incision well approximated with skin glue, left groin site soft, nontender NEUROLOGIC: Cranial nerves II through XII intact, normal coordination MUSKULOSKELETAL: Able to move all extremities, strength equal bilaterally but some generalized weakness present, normal posture PSYCHIATRIC: Alert and oriented to person place. Knows its August but thought it was 2011. Results - Labs 09/11/21 07:43 09/11/21 07:37 Abnormal Lab Results - Last 24 Hours (Table) 09/10/21 09/10/21 09/10/21 Range/Units 14:05 14:12 14:12 WBC 15.9 H (3.8-10.6) k/uL RBC 3.92 L (4.30-5.90) m/uL Hgb 12.0 L (13.0-17.5) gm/dL Hct 36.8 L (39.0-53.0) % Neutrophils # 12.8 H (1.3-7.7) k/uL Monocytes # 1.1 H (0-1.0) k/uL PT 12.9 H (9.0-12.0) sec INR 1.2 H (<1.2) APTT 33.3 H (22.0-30.0) sec Sodium 130 L (137-145) mmol/L Chloride 97 L (98-107) mmol/L Carbon Dioxide 19 L (22-30) mmol/L BUN 48 H (9-20) mg/dL Creatinine 2.10 H (0.66-1.25) mg/dL Glucose 291 H (74-99) mg/dL POC Glucose (mg/dL) (75-99) mg/dL Calcium 8.3 L (8.4-10.2) mg/dL Troponin I (0.000-0.034) ng/mL Total Protein 6.1 L (6.3-8.2) g/dL Albumin 3.3 L (3.5-5.0) g/dL Urine Protein (Negative) Urine Glucose (UA) (Negative) Urine Blood (Negative) Urine RBC (0-5) /hpf Urine WBC (0-5) /hpf Amorphous Sediment (None) /hpf Urine Bacteria (None) /hpf 09/10/21 09/10/21 09/10/21 Range/Units 14:24 14:41 17:12 WBC (3.8-10.6) k/uL RBC (4.30-5.90) m/uL Hgb (13.0-17.5) gm/dL Hct (39.0-53.0) % Neutrophils # (1.3-7.7) k/uL Monocytes # (0-1.0) k/uL PT (9.0-12.0) sec INR (<1.2) APTT (22.0-30.0) sec Sodium (137-145) mmol/L Chloride (98-107) mmol/L Carbon Dioxide (22-30) mmol/L BUN (9-20) mg/dL Creatinine (0.66-1.25) mg/dL Glucose (74-99) mg/dL POC Glucose (mg/dL) 303 H (75-99) mg/dL Calcium (8.4-10.2) mg/dL Troponin I 0.054 H* (0.000-0.034) ng/mL Total Protein (6.3-8.2) g/dL Albumin (3.5-5.0) g/dL Urine Protein 1+ H (Negative) Urine Glucose (UA) 1+ H (Negative) Urine Blood Moderate H (Negative) Urine RBC >182 H (0-5) /hpf Urine WBC 14 H (0-5) /hpf Amorphous Sediment Occasional H (None) /hpf Urine Bacteria Occasional H (None) /hpf 09/10/21 09/11/21 Range/Units 20:25 06:27 WBC (3.8-10.6) k/uL RBC (4.30-5.90) m/uL Hgb (13.0-17.5) gm/dL Hct (39.0-53.0) % Neutrophils # (1.3-7.7) k/uL Monocytes # (0-1.0) k/uL PT (9.0-12.0) sec INR (<1.2) APTT (22.0-30.0) sec Sodium (137-145) mmol/L Chloride (98-107) mmol/L Carbon Dioxide (22-30) mmol/L BUN (9-20) mg/dL Creatinine (0.66-1.25) mg/dL Glucose (74-99) mg/dL POC Glucose (mg/dL) 393 H 356 H (75-99) mg/dL Calcium (8.4-10.2) mg/dL Troponin I (0.000-0.034) ng/mL Total Protein (6.3-8.2) g/dL Albumin (3.5-5.0) g/dL Urine Protein (Negative) Urine Glucose (UA) (Negative) Urine Blood (Negative) Urine RBC (0-5) /hpf Urine WBC (0-5) /hpf Amorphous Sediment (None) /hpf Urine Bacteria (None) /hpf Diabetes panel 09/10/21 Range/Units 14:12 Sodium 130 L (137-145) mmol/L Potassium 4.4 (3.5-5.1) mmol/L Chloride 97 L (98-107) mmol/L Carbon Dioxide 19 L (22-30) mmol/L BUN 48 H (9-20) mg/dL Creatinine 2.10 H (0.66-1.25) mg/dL Glucose 291 H (74-99) mg/dL Calcium 8.3 L (8.4-10.2) mg/dL AST 21 (17-59) U/L ALT 14 (4-49) U/L Alkaline Phosphatase 85 (38-126) U/L Total Protein 6.1 L (6.3-8.2) g/dL Albumin 3.3 L (3.5-5.0) g/dL Calcium panel 09/10/21 Range/Units 14:12 Calcium 8.3 L (8.4-10.2) mg/dL Albumin 3.3 L (3.5-5.0) g/dL Pituitary panel 09/10/21 Range/Units 14:12 Sodium 130 L (137-145) mmol/L Potassium 4.4 (3.5-5.1) mmol/L Chloride 97 L (98-107) mmol/L Carbon Dioxide 19 L (22-30) mmol/L BUN 48 H (9-20) mg/dL Creatinine 2.10 H (0.66-1.25) mg/dL Glucose 291 H (74-99) mg/dL Calcium 8.3 L (8.4-10.2) mg/dL Adrenal panel 09/10/21 Range/Units 14:12 Sodium 130 L (137-145) mmol/L Potassium 4.4 (3.5-5.1) mmol/L Chloride 97 L (98-107) mmol/L Carbon Dioxide 19 L (22-30) mmol/L BUN 48 H (9-20) mg/dL Creatinine 2.10 H (0.66-1.25) mg/dL Glucose 291 H (74-99) mg/dL Calcium 8.3 L (8.4-10.2) mg/dL Total Bilirubin 1.2 (0.2-1.3) mg/dL AST 21 (17-59) U/L ALT 14 (4-49) U/L Alkaline Phosphatase 85 (38-126) U/L Total Protein 6.1 L (6.3-8.2) g/dL Albumin 3.3 L (3.5-5.0) g/dL - Imaging Chest x-ray: report reviewed, image reviewed Assessment and Plan Assessment: 1. Hematuria 2. Acute kidney injury 3. Dehydration 4. Calcified aortic valve with severe symptomatic aortic valve stenosis status post TAVR 5. Hypertension 6. Hyperlipidemia, treated 7. Diastolic heart failure 8. Chronic atrial fibrillation on Xarelto for anticoagulation 9. Insulin-dependent diabetes, preprocedure A1c 8.7% 10. PAD with left SFA/iliac stenting and subsequent bypass 11. Left ICA 100% stenosis with recent acute infarct of the anterior left thalamus 12. Previous tobacco dependence, preprocedure FEV1 101% of predicted Plan: The patient was seen and examined in the cardiac stepdown unit in no acute distress. The case was discussed in detail with Dr. Dodson who is on-call for cardiothoracic surgery, and who was contacted yesterday by the emergency room physicians. At this time continue current medications. Would restart Xarelto when due to recent stroke and chronic atrial fibrillation, hemoglobin is stable and no current evidence of clots currently in his urine. Patient needs tight blood sugar control, has been in the 300s since admit, diabetic meds not reordered yet. PT/OT consulted to work with patient on increasing strength and mobility. Agree with gentle hydration. Agree with Vna catheter for now. Will consult cardiology, nephrology. Medical management of other comorbidities per primary care service. More recommendations to follow. Thank you for this consult. We will continue to follow along with you while patient is hospitalized. I have personally seen and examined the patient, performed the documentation and the assessment and plan as written. Number of minutes spent on the visit: 30. PAT Qiu
--- NOTE | 2021-09-11 11:01 | P.CRDCN ---
History of Present Illness Consult date: 09/11/21 History of present illness: History of Present Illness: The patient is a 76-year-old male who presented to the hospital with hematuria. He has been followed by Dr. Joya, has a history of peripheral vascular disease, mild to moderate CAD and severe aortic stenosis. He underwent TAVR last week and postoperatively he had an episode of speech disturbance the subsequently resolved. He has been maintained on anticoagulation because of the history of atrial fibrillation. According to him he had significant hematuria at that time of presentation with evidence of clot that resolved. His breathing is better since his valve intervention. He denies any chest discomfort, dizziness or palpitations. He denies any fever, no PND or orthopnea. He has chronic skin changes and edema, unchanged. His left ventricle systolic function by echocardiogram was estimated at 45-50% in June. Prior to discharge he had urinary retention requiring straight catheterization. According to him he had prior episodes of hematuria but not recently. His medication at home included insulin, Lipitor 40 mg daily, Plavix and 5 mg daily, metformin, lisinopril 40 mg daily, metoprolol succinate 50 mg daily, amlodipine 5 mg daily,Xarelto Review of Systems: Respiratory: He has a history of chronic dyspnea on exertion, better since the valve replacement GI: She had nausea and vomiting today. No history of peptic ulcer disease. No recent GI bleed. : He had a prior history of hematuria Nervous System: No stroke or seizure. Physical Examination: 76-year-old male, alert and oriented no apparent distress, blood pressure 127/70 with a heart rate in the 80s Head: Normocephalic. Eyes: Sclerae nonicteric. Neck: Good carotid upstroke, no bruit, no jugular venous distention. Lungs: Clear to auscultation. Heart: Irregular rate and rhythm, S1-S2, no S3, no rub. Systolic ejection murmur, 1/6, the sternotomy. Abdomen: Soft nontender, positive bowel sounds no organomegaly. Extremities: [Chronic skin changes with trace edema Labs: Hemoglobin 11.7, potassium 4.4, creatinine 2.19, BUN 61, white blood cell 15.8 Impression: 1. Hematuria probably exacerbated by the anticoagulation and the recent catheterization, his urine is clean at this time 2. Status post recent TAVR 3. Status post recent TIA 4. History of severe PAD 5. History of CAD, stable 6. Renal failure, worse since last week 7. History of hypertension 8. History of diabetes Plan: 1. Resume anticoagulation because of the recent TIA 2. Follow renal functions 3. Follow hemoglobin 4. Continue statin 5. Depending on his progress further recommendations will be made. Thank you for this consult we will follow with you. 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 COLONOSCOPY, EGD, left leg bypass, PICC line-later removed; transcatheter aortic valve replacement through direct aortic access with dale-sternotomy using 29 mm Core-Valve Evolut-Pro Plus Past Anesthesia/Blood Transfusion Reactions: Motion Sickness Additional Past Anesthesia/Blood Transfusion Reaction / Comment(s): no hx blood transfusion Past Psychological History: No Psychological Hx Reported Smoking Status: Former smoker Past Alcohol Use History: Occasional Past Drug Use History: None Reported - Past Family History Father Family Medical History: Cancer Additional Family Medical History / Comment(s): throat CA that spread to his brain Mother Additional Family Medical History / Comment(s): heart problems Brother(s) Family Medical History: Diabetes Mellitus Medications and Allergies Home Medications Medication Instructions Recorded Confirmed Type metFORMIN HCL [Glucophage] 500 mg PO BID 03/03/16 09/10/21 History amLODIPine [Norvasc] 5 mg PO DAILY 06/22/17 09/10/21 History Atorvastatin [Lipitor] 40 mg PO HS 07/06/21 09/10/21 History Dulaglutide [Trulicity] 3 mg SQ MO 07/06/21 09/10/21 History Insulin Glargine,Hum.rec.anlog 80 units SQ HS 07/06/21 09/10/21 History [Touvince Solostar] Metoprolol Succinate (ER) [Toprol 50 mg PO DAILY 07/06/21 09/10/21 History XL] Rivaroxaban [Xarelto] 20 mg PO HS 07/06/21 09/10/21 History glipiZIDE [Glucotrol] 5 mg PO AC-BID 07/06/21 09/10/21 History lisinopriL 40 mg PO DAILY 07/06/21 09/10/21 History Acetaminophen Tab [Tylenol] 650 mg PO Q4HR PRN tab 09/09/21 09/10/21 Rx Clopidogrel [Plavix] 75 mg PO DAILY #30 tab 09/09/21 09/10/21 Rx Tamsulosin [Flomax] 0.4 mg PO PC-SUPPER #30 capsule 09/09/21 09/10/21 Rx Ammonium Lactate Lotion 1 applic TOPICAL BID PRN 09/10/21 09/10/21 History [Lac-Hydrin 12% Lotion] traMADol HCL [Ultram] 50 mg PO Q4HR PRN 09/10/21 09/10/21 History Allergies Allergy/AdvReac Type Severity Reaction Status Date / Time vancomycin Allergy Dyspnea/sha Verified 09/10/21 13:40 ky neoprene Allergy Rash/Hives Uncoded 09/10/21 13:40 Physical Exam Vitals: Vital Signs Temp Pulse Pulse Pulse Resp BP BP 09/11/21 08:00 97.5 F L 94 16 157/72 09/11/21 04:00 98 F 87 26 H 127/71 09/11/21 00:00 97.7 F 85 15 118/59 09/10/21 20:00 98.4 F 76 20 116/77 09/10/21 17:11 98.0 F 74 16 134/75 09/10/21 16:46 98.1 F 91 20 94/62 09/10/21 15:17 64 20 95/77 09/10/21 14:12 67 20 96/62 09/10/21 13:40 97.8 F 62 18 89/57 Pulse Ox 09/11/21 08:00 94 L 09/11/21 04:00 95 09/11/21 00:00 95 09/10/21 20:00 94 L 09/10/21 17:11 96 09/10/21 16:46 93 L 09/10/21 15:17 94 L 09/10/21 14:12 96 09/10/21 13:40 100 Intake and Output 09/10/21 09/11/21 09/11/21 22:59 06:59 14:59 Intake Total 240 540 Output Total 600 Balance 240 -600 540 Intake: Oral 240 540 Output: Urine 600 Other: Voiding Method Indwelling Catheter Weight 127.006 kg Results 09/11/21 07:43 09/11/21 07:37 Cardiac Enzymes 09/10/21 09/10/21 09/11/21 Range/Units 14:12 14:24 07:37 AST 21 116 H (17-59) U/L Troponin I 0.054 H* (0.000-0.034) ng/mL Coagulation 09/10/21 Range/Units 14:05 PT 12.9 H (9.0-12.0) sec APTT 33.3 H (22.0-30.0) sec CBC 09/10/21 09/11/21 Range/Units 14:12 07:43 WBC 15.9 H 15.8 H (3.8-10.6) k/uL RBC 3.92 L 3.89 L (4.30-5.90) m/uL Hgb 12.0 L 11.7 L (13.0-17.5) gm/dL Hct 36.8 L 37.1 L (39.0-53.0) % Plt Count 233 262 (150-450) k/uL Comprehensive Metabolic Panel 09/10/21 09/11/21 Range/Units 14:12 07:37 Sodium 130 L 130 L (137-145) mmol/L Potassium 4.4 4.4 (3.5-5.1) mmol/L Chloride 97 L 100 (98-107) mmol/L Carbon Dioxide 19 L 14 L (22-30) mmol/L BUN 48 H 61 H (9-20) mg/dL Creatinine 2.10 H 2.19 H (0.66-1.25) mg/dL Glucose 291 H 358 H (74-99) mg/dL Calcium 8.3 L 8.0 L (8.4-10.2) mg/dL AST 21 116 H (17-59) U/L ALT 14 62 H (4-49) U/L Alkaline Phosphatase 85 108 (38-126) U/L Total Protein 6.1 L 6.1 L (6.3-8.2) g/dL Albumin 3.3 L 3.2 L (3.5-5.0) g/dL Current Medications Generic Name Dose Route Start Last Admin Trade Name Yoan PRN Reason Stop Dose Admin Acetaminophen 650 mg 09/10/21 17:24 Acetaminophen Tab 325 Mg Tab PO Q4HR PRN Fever And/ Or Mild Pain (1-3) Amlodipine Besylate 5 mg 09/11/21 09:00 09/11/21 08:13 Amlodipine 5 Mg Tab PO 5 mg DAILY ELIO Administration Atorvastatin Calcium 40 mg 09/10/21 21:00 09/10/21 20:41 Atorvastatin 40 Mg Tab PO 40 mg HS ELIO Administration Clopidogrel Bisulfate 75 mg 09/11/21 09:00 09/11/21 08:14 Clopidogrel 75 Mg Tab PO 75 mg DAILY ELIO Administration Sodium Chloride 1,000 mls @ 75 mls/hr 09/10/21 14:30 09/11/21 08:14 Saline 0.9% IV 75 mls/hr .[id number] ELIO Administration Insulin Aspart 0 unit 09/10/21 17:30 09/11/21 06:30 Insulin Aspart (Novolog) 100 Unit/Ml Vial SQ 7 unit ACHS ELIO Administration Protocol Lactic Acid 1 applic 09/10/21 17:24 Ammonium Lactate 12% Lotion 225 Gm Btl TOPICAL BID PRN Skin Irritation Protocol Metoprolol Succinate 50 mg 09/11/21 09:00 09/11/21 08:13 Metoprolol Succinate (Er) 50 Mg Tab.Er.24h PO 50 mg DAILY ELIO Administration Naloxone HCl 0.2 mg 09/10/21 16:13 Naloxone 0.4 Mg/Ml 1 Ml Vial IV Q2M PRN Opioid Reversal Tamsulosin HCl 0.4 mg 09/10/21 18:30 09/10/21 20:41 Tamsulosin 0.4 Mg Cap.Er.24h PO 0.4 mg PC-SUPPER ELIO Administration Tramadol HCl 50 mg 09/11/21 07:24 Tramadol 50 Mg Tab PO BID PRN Moderate Breakthrough Pain Intake and Output 09/10/21 09/11/21 09/11/21 22:59 06:59 14:59 Intake Total 240 540 Output Total 600 Balance 240 -600 540 Intake: Oral 240 540 Output: Urine 600 Other: Voiding Method Indwelling Catheter Weight 127.006 kg 09/11/21 07:43 09/11/21 07:37
[2021-09-11 11:26] LABS: Glucose,Whole Blood 405 mg/dL (75-99)
--- NOTE | 2021-09-11 11:34 | P.NPCON ---
History of Present Illness - Reason for Consult Consult date: 09/11/21 acute renal failure - Chief Complaint Acute Kidney injury - History of Present Illness 76-year-old male seen in consultation because of acute kidney injury, creatinine went up from 1.17 on 09/09/2021 to 2.1 on admission yesterday 09/10 2020. Additionally her blood sugars are high he has significant gap and non-gap acidosis. Bicarb of 14 and a gap of 16 blood sugar in the 393 range. He was discharged 2 days ago after having undergone TAVR procedure with a Nithin sternotomy, for severe symptomatic aortic stenosis. Postop he had a anterior left thalamus infarct with difficulty in speech. He recovered from it. He came in now because of hematuria. It is painless Although he is on Flomax but he denies any history suggestive of prostatism. The Van catheter is in place and the urine looks slightly tinged but not grossly bloody No back pain. No fever chills no nausea vomiting no shortness of breath His past history significant for atrial fibrillation, peripheral vascular disease with left eyelid extent, atrial fibrillation chronic diabetes. His creatinine was 1.17 on 09/09/2021 2 days ago and he came in with a creatinine of 2.1. No history of nonsteroidals. 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 COLONOSCOPY, EGD, left leg bypass, PICC line-later removed; transcatheter aortic valve replacement through direct aortic access with nithin-sternotomy using 29 mm Core-Valve Evolut- Pro Plus Past Anesthesia/Blood Transfusion Reactions: Motion Sickness Additional Past Anesthesia/Blood Transfusion Reaction / Comment(s): no hx blood transfusion Past Psychological History: No Psychological Hx Reported Smoking Status: Former smoker Past Alcohol Use History: Occasional Past Drug Use History: None Reported - Past Family History Father Family Medical History: Cancer Additional Family Medical History / Comment(s): throat CA that spread to his brain Mother Additional Family Medical History / Comment(s): heart problems Brother(s) Family Medical History: Diabetes Mellitus Medications and Allergies Home Medications Medication Instructions Recorded Confirmed Type metFORMIN HCL [Glucophage] 500 mg PO BID 03/03/16 09/10/21 History amLODIPine [Norvasc] 5 mg PO DAILY 06/22/17 09/10/21 History Atorvastatin [Lipitor] 40 mg PO HS 07/06/21 09/10/21 History Dulaglutide [Trulicity] 3 mg SQ MO 07/06/21 09/10/21 History Insulin Glargine,Hum.rec.anlog 80 units SQ HS 07/06/21 09/10/21 History [Toujeo Solostar] Metoprolol Succinate (ER) [Toprol 50 mg PO DAILY 07/06/21 09/10/21 History XL] Rivaroxaban [Xarelto] 20 mg PO HS 07/06/21 09/10/21 History glipiZIDE [Glucotrol] 5 mg PO AC-BID 07/06/21 09/10/21 History lisinopriL 40 mg PO DAILY 07/06/21 09/10/21 History Acetaminophen Tab [Tylenol] 650 mg PO Q4HR PRN tab 09/09/21 09/10/21 Rx Clopidogrel [Plavix] 75 mg PO DAILY #30 tab 09/09/21 09/10/21 Rx Tamsulosin [Flomax] 0.4 mg PO PC-SUPPER #30 capsule 09/09/21 09/10/21 Rx Ammonium Lactate Lotion 1 applic TOPICAL BID PRN 09/10/21 09/10/21 History [Lac-Hydrin 12% Lotion] traMADol HCL [Ultram] 50 mg PO Q4HR PRN 09/10/21 09/10/21 History Allergies Allergy/AdvReac Type Severity Reaction Status Date / Time vancomycin Allergy Dyspnea/sha Verified 09/10/21 13:40 ky neoprene Allergy Rash/Hives Uncoded 09/10/21 13:40 Physical Exam Vitals: Vital Signs Temp Pulse Pulse Pulse Resp BP BP 09/11/21 08:00 97.5 F L 94 16 157/72 09/11/21 04:00 98 F 87 26 H 127/71 09/11/21 00:00 97.7 F 85 15 118/59 09/10/21 20:00 98.4 F 76 20 116/77 09/10/21 17:11 98.0 F 74 16 134/75 09/10/21 16:46 98.1 F 91 20 94/62 09/10/21 15:17 64 20 95/77 09/10/21 14:12 67 20 96/62 09/10/21 13:40 97.8 F 62 18 89/57 Pulse Ox 09/11/21 08:00 94 L 09/11/21 04:00 95 09/11/21 00:00 95 09/10/21 20:00 94 L 09/10/21 17:11 96 09/10/21 16:46 93 L 09/10/21 15:17 94 L 09/10/21 14:12 96 09/10/21 13:40 100 Intake and Output 09/10/21 09/11/21 09/11/21 22:59 06:59 14:59 Intake Total 240 540 Output Total 600 Balance 240 -600 540 Intake: Oral 240 540 Output: Urine 600 Other: Voiding Method Indwelling Catheter Weight 127.006 kg On examination is awake alert oriented HEENT exam no JVP noted Lungs are clear to auscultation good air entry bilaterally Heart sounds unremarkable. He cannot hear any click prosthetic valve. Abdomen soft nontender no suprapubic tenderness Extremity exam was mild edema Neurologically awake alert oriented does not seem to have any focal motor deficit no facial asymmetry noted Results - Lab Results Most recent lab results Calcium 8.0 mg/dL (8.4-10.2) L 09/11/21 07:37 09/11/21 07:43 09/11/21 07:37 Assessment and Plan Assessment: Impression 1. Acute kidney injury likely secondary to uncontrolled diabetes. 2. Hyponatremia secondary to high blood sugar, serum sodium is 130s blood sugar is 358 3. Significant gap and non-gap acidosis secondary to diabetic ketoacidosis bicarb was 14 gap is 16. He is non-gap acidosis secondary to loss of bicarb in the urine 4. Admitted with hematuria voids urine seems fairly normal, urinalysis shows 1+ protein 1+ glucose ketones negative multiple RBCs and 14 WBCs. This is likely from anticoagulation including Zoloft to and Plavix 5. Slightly high liver function tests bilirubin 1.4 AST 116 ALTs 62. 6. Hemoglobin is 11.7 stable condition Recommendation 1. Blood sugar needs to be controlled aggressively 2. Check serum acetone to rule out ketoacidosis 3. Start sodium bicarb 650 4 times a day because of the non-gap acidosis that would require sodium bicarb to be replaced 4. Agree with IV fluids currently on 75 mL of normal saline 5. Clopsely monitor labs urine output blood pressure Thank you for this consultation. Continue to follow closely
[2021-09-11] MEDS ORDERED: INSULIN DETEMIR (LEVEMIR) 100 UNIT/ML SYR SQ ONE (11:45)
[2021-09-11 16:46] LABS: Glucose,Whole Blood 478 mg/dL (75-99)
[2021-09-11] MEDS: RIVAROXABAN 20 MG TAB PO SCH (17:00)
[2021-09-11] MEDS: glipiZIDE 5 MG TAB PO SCH (17:00)
--- NOTE | 2021-09-11 17:33 | PN ---
PROGRESS NOTE DATE OF SERVICE: 09/11/2021 This 76-year-old gentleman who recently underwent TAVR surgery has complaints of weakness. The patient was readmitted with renal failure as well as significant bleeding and hematuria. The patient has got a Van catheter at this time. The patient is taking Xarelto for chronic atrial fibrillation. Past medical history reviewed. REVIEW OF SYSTEMS: Fourteen-point review of systems negative except as mentioned earlier. CURRENT MEDICATIONS: Current medications are reviewed and include Tylenol, Norvasc. Doses and other medications are reviewed. See list. PHYSICAL EXAMINATION: Pulse is 75, blood pressure 137/80, respiration 14. CHEST: A few scattered rhonchi. CARDIOVASCULAR: S1, S2 muffled. ABDOMEN: Soft, obese. NERVOUS SYSTEM: Mild diffuse weakness. LABS: Creatinine 2.19. Other labs are reviewed. ASSESSMENT: 1. Acute renal failure from dehydration. 2. History of recent TAVR. 3. Hematuria. 4. Atrial fibrillation. 5. Elevated LFTs. 6. Diabetes mellitus, type 2. 7. Weakness and gait dysfunction. 8. Hypertension. RECOMMENDATIONS AND DISCUSSION: I recommend to continue current medications, continue with the monitoring, symptomatic treatment. Repeat labs. Continue with cautious IV fluids. Chest x-ray reviewed personally. Closely follow with multiple consultants. PT/OT evaluation. carry in worker to evaluate the home situation. Incentive spirometry. Further recommendations to follow. MMODL / IJN: [id number] /
[2021-09-11] MEDS: TAMSULOSIN 0.4 MG CAP.ER.24H PO SCH (18:10)
[2021-09-11] MEDS: IPRATROPIUM-ALBUTEROL 3 ML NEB INHALATION SCH ×2 (18:52→19:35)
[2021-09-11] MEDS: BUDESONIDE 1 MG/2 ML NEBU INHALATION SCH (19:35)
[2021-09-11] MEDS: ATORVASTATIN 40 MG TAB PO SCH (20:57)
[2021-09-11] MEDS ORDERED: INSULIN GLARGINE HUM REC ANLOG 300 UNIT/ML SQ SCH (21:00)
[2021-09-11] MEDS ORDERED: INSULIN DETEMIR (LEVEMIR) 100 UNIT/ML SYR SQ SCH (21:00)
[2021-09-11 21:13] LABS: Glucose,Whole Blood 463 mg/dL (75-99)
[2021-09-12] MEDS: INSULIN ASPART (NovoLOG) 100 UNIT/ML VIAL SQ SCH ×3 (06:19→17:40)
[2021-09-12] MEDS: glipiZIDE 5 MG TAB PO SCH (06:19)
[2021-09-12 06:27] LABS: Glucose,Whole Blood 392 mg/dL (75-99)
[2021-09-12] MEDS: SODIUM CHLORIDE 0.9% 1,000 ML IV SCH (06:33)
[2021-09-12] MEDS: IPRATROPIUM-ALBUTEROL 3 ML NEB INHALATION SCH ×4 (07:33→19:20)
[2021-09-12] MEDS: BUDESONIDE 1 MG/2 ML NEBU INHALATION SCH ×2 (07:34→19:20)
[2021-09-12 07:43] LABS: Basophils % (A) 0 %; Eosinophils # (A) 0.1 k/uL (0-0.7); Eosinophils % (A) 0 %; HCT 36.2 % (39.0-53.0); HGB 11.7 gm/dL (13.0-17.5); Lymphocytes # (A) 1.8 k/uL (1.0-4.8); Lymphocytes % (A) 10 %; MCH 30.7 pg (25.0-35.0); MCHC 32.4 g/dL (31.0-37.0); MCV 94.9 fL (80.0-100.0); Mean Platelet Volume 9.5; Monocytes % (A) 5 %; Neutrophils # (A) 14.9 k/uL (1.3-7.7); Neutrophils % (A) 83 %; Platelet Count 290 k/uL (150-450); RBC 3.82 m/uL (4.30-5.90); RDW 14.4 % (11.5-15.5); WBC 18.1 k/uL (3.8-10.6)
[2021-09-12 08:23] LABS: Albumin 3.2 g/dL (3.5-5.0); Calcium 7.9 mg/dL (8.4-10.2); Magnesium 2.8 mg/dL (1.6-2.3); Potassium 4.6 mmol/L (3.5-5.1); Total Bilirubin 0.9 mg/dL (0.2-1.3); Total Protein 6.2 g/dL (6.3-8.2)
--- NOTE | 2021-09-12 08:49 | P.PN ---
Subjective Progress Note Date: 09/12/21 Principal diagnosis: Hematuria, acute kidney injury, dehydration, transaminitis, leukocytosis. Previous medical history of calcified aortic valve with severe symptomatic aortic valve stenosis status post TAVR, hypertension, hyperlipidemia, diastolic heart failure, chronic atrial fibrillation on Xarelto for anticoagulation, insulin-dependent diabetes, PAD with left SFA/iliac stenting and subsequent bypass, left ICA 100% stenosis with recent acute infarct of the anterior left thalamus, previous tobacco dependence The patient was seen and examined this morning laying in bed on the cardiac stepdown unit receiving nebulizer therapy. Denies pain, shortness of breath although has been placed back on oxygen and breathing treatments were initiated. Velazquez remains present, no gross hematuria noted. Patient required 3 person assist to get up to recliner yesterday. Blood sugars still quite elevated despite re-initiation of lantus and glipizide. Xarelto re-initiated. Objective - Vital Signs Vital signs: Vital Signs Temp 97.9 F 09/12/21 04:00 Pulse 84 09/12/21 07:55 Resp 20 09/12/21 04:00 BP 162/80 09/12/21 04:00 Pulse Ox 95 09/12/21 07:36 Intake & Output 09/11/21 09/12/21 09/12/21 18:59 06:59 18:59 Intake Total 1320 120 Output Total 200 400 Balance 1120 -280 Intake: Intake, IV Titration 600 Amount Sodium Chloride 0.9% 1, 600 000 ml @ 75 mls/hr IV . [id number] [facility] Rx#:[id number] Oral 720 120 Output: Urine 200 400 Uretheral (Velazquez) 400 Other: Voiding Method Indwelling Catheter Indwelling Catheter # Bowel Movements 1 - Exam CONSTITUTIONAL: Awake and alert, cooperative, well-developed, well-nourished, no pain EYES: Pupils equal, round, reactive to light, normal ocular movement ENT: Moist mucous membranes without oral lesions present NECK: No masses, no bruits, trachea midline RESPIRATORY: Lungs sounds with expiratory wheezes bilaterally. Respirations even, nonlabored. Currently on 2LPM NC with oxygen saturation 95%. Strong cough. CARDIOVASCULAR: S1, S2 present. Irregular rate and rhythm, controlled atrial fibrillation on telemetry. Palpable peripheral pulses bilaterally. Trace bilateral lower extremity edema present. No calf pain or tenderness noted. GASTROINTESTINAL: Abdomen soft, nontender, nondistended without masses or organomegaly noted. There is no rebound or guarding present. Active bowel beatriz nds present 4 quadrants. GENITOURINARY: Velazquez catheter present with clear yellow urine, no gross hematuria present INTEGUMENTARY: Skin is warm and dry. Nithin-sternotomy incision well approximated with skin glue, left groin site soft, nontender NEUROLOGIC: Cranial nerves II through XII intact, normal coordination MUSKULOSKELETAL: Able to move all extremities, strength equal bilaterally but generalized weakness present PSYCHIATRIC: Alert and oriented to person, place. - Allied health notes Allied health notes reviewed: nursing - Labs CBC & Chem 7: 09/12/21 07:29 09/12/21 07:29 Labs: Abnormal Lab Results - Last 24 Hours (Table) 09/11/21 09/11/21 09/11/21 Range/Units 07:37 11:25 16:45 WBC (3.8-10.6) k/uL RBC (4.30-5.90) m/uL Hgb (13.0-17.5) gm/dL Hct (39.0-53.0) % Neutrophils # (1.3-7.7) k/uL Sodium 130 L (137-145) mmol/L Carbon Dioxide 14 L (22-30) mmol/L BUN 61 H (9-20) mg/dL Creatinine 2.19 H (0.66-1.25) mg/dL Glucose 358 H (74-99) mg/dL POC Glucose (mg/dL) 405 H 478 H (75-99) mg/dL Calcium 8.0 L (8.4-10.2) mg/dL Magnesium (1.6-2.3) mg/dL Total Bilirubin 1.4 H (0.2-1.3) mg/dL AST 116 H (17-59) U/L ALT 62 H (4-49) U/L Alkaline Phosphatase (38-126) U/L Total Protein 6.1 L (6.3-8.2) g/dL Albumin 3.2 L (3.5-5.0) g/dL 09/11/21 09/12/21 09/12/21 Range/Units 20:52 06:04 07:29 WBC (3.8-10.6) k/uL RBC (4.30-5.90) m/uL Hgb (13.0-17.5) gm/dL Hct (39.0-53.0) % Neutrophils # (1.3-7.7) k/uL Sodium 130 L (137-145) mmol/L Carbon Dioxide 15 L (22-30) mmol/L BUN 83 H (9-20) mg/dL Creatinine 2.25 H (0.66-1.25) mg/dL Glucose 381 H (74-99) mg/dL POC Glucose (mg/dL) 463 H 392 H (75-99) mg/dL Calcium 7.9 L (8.4-10.2) mg/dL Magnesium 2.8 H (1.6-2.3) mg/dL Total Bilirubin (0.2-1.3) mg/dL AST 149 H (17-59) U/L ALT 189 H (4-49) U/L Alkaline Phosphatase 131 H (38-126) U/L Total Protein 6.2 L (6.3-8.2) g/dL Albumin 3.2 L (3.5-5.0) g/dL 09/12/ Range/Units 07:29 WBC 18.1 H (3.8-10.6) k/uL RBC 3.82 L (4.30-5.90) m/uL Hgb 11.7 L (13.0-17.5) gm/dL Hct 36.2 L (39.0-53.0) % Neutrophils # 14.9 H (1.3-7.7) k/uL Sodium (137-145) mmol/L Carbon Dioxide (22-30) mmol/L BUN (9-20) mg/dL Creatinine (0.66-1.25) mg/dL Glucose (74-99) mg/dL POC Glucose (mg/dL) (75-99) mg/dL Calcium (8.4-10.2) mg/dL Magnesium (1.6-2.3) mg/dL Total Bilirubin (0.2-1.3) mg/dL AST (17-59) U/L ALT (4-49) U/L Alkaline Phosphatase (38-126) U/L Total Protein (6.3-8.2) g/dL Albumin (3.5-5.0) g/dL Microbiology - Last 24 Hours (Table) 03/26/22 14:41 Urine Culture - Preliminary Urine,Catheterized Assessment and Plan Assessment: 1. Hematuria 2. Acute kidney injury 3. Dehydration 4. Transaminitis 5. Leukocytosis 6. Calcified aortic valve with severe symptomatic aortic valve stenosis status post TAVR 7. Hypertension 8. Hyperlipidemia, treated 9. Diastolic heart failure 10. Chronic atrial fibrillation on Xarelto for anticoagulation 11. Insulin-dependent diabetes, preprocedure A1c 8.7% 12. PAD with left SFA/iliac stenting and subsequent bypass 13. Left ICA 100% stenosis with recent acute infarct of the anterior left thalamus 14. Previous tobacco dependence, preprocedure FEV1 101% of predicted Plan: 1. Continue current medication regimen 2. Patient needs better blood sugar control, blood sugars have remained in the 300-400 range despite re-initiation of levemir and glipizide 3. Wean oxygen as tolerated. Continue bronchodilators, inhaled steroids 4. Increase activity, up to chair, ambulate with walker and assist. PT/OT ordered. Patient should be out of bed for all meals 5. Continue flomax, dc velazquez when able 6. TOMA management per nephrology 7. Afib management per cardiology 8. Medical management of other comorbidities per primary care 9. Will continue to follow on the periphery while hospitalized. No surgical management at this time
[2021-09-12] MEDS: CLOPIDOGREL 75 MG TAB PO SCH (09:13)
[2021-09-12] MEDS: amLODIPine 5 MG TAB PO SCH (09:13)
[2021-09-12] MEDS: METOPROLOL SUCCINATE (ER) 50 MG TAB.ER.24H PO SCH (09:13)
[2021-09-12] MEDS ORDERED: FUROSEMIDE 10 MG/ML 4 ML VIAL IV STA (10:20)
--- NOTE | 2021-09-12 10:23 | P.PN ---
Subjective Patient is seen in follow for acute kidney injury. Renal function fairly stable. Blood sugars remain elevated. IV fluids stopped. Now is a Van catheter for urinary retention. Oral intake is poor. Hemodynamically stable. No vomiting or diarrhea. Vital signs are stable. General: The patient appeared well nourished and normally developed. HEENT: Head exam is unremarkable. LUNGS: Breath sounds decreased. HEART: Rate and Rhythm are regular. ABDOMEN: Soft, obese. EXTREMITITES: 1+ edema. Chronic kidney disease. Objective - Vital Signs Vital signs: Vital Signs Temp 97.9 F 09/12/21 04:00 Pulse 84 09/12/21 07:55 Resp 20 09/12/21 04:00 BP 162/80 09/12/21 04:00 Pulse Ox 95 09/12/21 07:36 Intake & Output 09/11/21 09/12/21 09/12/21 18:59 06:59 18:59 Intake Total 1320 120 Output Total 200 400 Balance 1120 -280 Intake: Intake, IV Titration 600 Amount Sodium Chloride 0.9% 1, 600 000 ml @ 75 mls/hr IV . [id number] [facility] Rx#:[id number] Oral 720 120 Output: Urine 200 400 Uretheral (Van) 400 Other: Voiding Method Indwelling Catheter Indwelling Catheter # Bowel Movements 1 - Labs CBC & Chem 7: 09/12/21 07:29 09/12/21 07:29 Labs: Abnormal Lab Results - Last 24 Hours (Table) 09/11/21 09/11/21 09/11/21 Range/Units 11:25 16:45 20:52 WBC (3.8-10.6) k/uL RBC (4.30-5.90) m/uL Hgb (13.0-17.5) gm/dL Hct (39.0-53.0) % Neutrophils # (1.3-7.7) k/uL Sodium (137-145) mmol/L Carbon Dioxide (22-30) mmol/L BUN (9-20) mg/dL Creatinine (0.66-1.25) mg/dL Glucose (74-99) mg/dL POC Glucose (mg/dL) 405 H 478 H 463 H (75-99) mg/dL Calcium (8.4-10.2) mg/dL Magnesium (1.6-2.3) mg/dL AST (17-59) U/L ALT (4-49) U/L Alkaline Phosphatase (38-126) U/L Total Protein (6.3-8.2) g/dL Albumin (3.5-5.0) g/dL 09/12/21 09/12/21 09/12/21 Range/Units 06:04 07:29 07:29 WBC 18.1 H (3.8-10.6) k/uL RBC 3.82 L (4.30-5.90) m/uL Hgb 11.7 L (13.0-17.5) gm/dL Hct 36.2 L (39.0-53.0) % Neutrophils # 14.9 H (1.3-7.7) k/uL Sodium 130 L (137-145) mmol/L Carbon Dioxide 15 L (22-30) mmol/L BUN 83 H (9-20) mg/dL Creatinine 2.25 H (0.66-1.25) mg/dL Glucose 381 H (74-99) mg/dL POC Glucose (mg/dL) 392 H (75-99) mg/dL Calcium 7.9 L (8.4-10.2) mg/dL Magnesium 2.8 H (1.6-2.3) mg/dL AST 149 H (17-59) U/L ALT 189 H (4-49) U/L Alkaline Phosphatase 131 H (38-126) U/L Total Protein 6.2 L (6.3-8.2) g/dL Albumin 3.2 L (3.5-5.0) g/dL Microbiology - Last 24 Hours (Table) 09/10/21 14:41 Urine Culture - Preliminary Urine,Catheterized Assessment and Plan Plan: Assessment: 1. Acute kidney injury secondary to ATN secondary to uncontrolled diabetes, urinary retention. Also component of cardiorenal. Creatinine fairly stable at 2.25 today. Baseline creatinine near 1 from 09/08/2021. 2. Fluid overload. 3. Urinary retention status post Van catheter placement. On Flomax. 4. Status post TAVR August 2021. 5. Hematuria. Patient is on Plavix as well as Xarelto. 6. History of A. fib. 7. Metabolic acidosis secondary to acute kidney injury. 8. Hypertonic hyponatremia secondary to hyperglycemia. 9. Diabetes mellitus. Plan: Hep-Lock IV fluids. Lasix 40 mg IV once today. Maintain Van catheter. Tight blood sugar control. Avoid nephrotoxins. Continue to monitor renal function and urine output. Check renal ultrasound. Add oral bicarbonate.
[2021-09-12] MEDS ORDERED: NON FORMULARY DRUG (Dulaglutide [Trulicity] 3 MG/0.5 ML Each) SQ SCH (11:00)
--- NOTE | 2021-09-12 11:20 | XR ---
EXAMINATION TYPE: XR chest 1V portable DATE OF EXAM: 09/12/2021 Comparison: 09/10/2021 Clinical History: 76-year-old male postop, re: SOB Findings: Median sternotomy wires and sternal plate and screw fixation. Endovascular aortic valve replacement n oted. There is moderate cardiomegaly. Pulmonary vasculature within normal limits. There is patchy ret rocardiac and left basilar opacity. No appreciable pneumothorax. Degenerative spurring at the right g lenohumeral joint. Impression: 1. Moderate cardiomegaly, similar to prior exam.. 2. Patchy retrocardiac and left basilar atelectasis versus infiltrate.
[2021-09-12] MEDS: SODIUM BICARBONATE TAB 650 MG TAB PO SCH ×3 (11:37→20:17)
[2021-09-12 11:38] LABS: Glucose,Whole Blood 347 mg/dL (75-99)
--- NOTE | 2021-09-12 11:38 | P.PN ---
Subjective History of Present Illness: The patient is a 76-year-old male who presented to the hospital with hematuria. He has been followed by Dr. Joya, has a history of peripheral vascular disease, mild to moderate CAD and severe aortic stenosis. He underwent TAVR last week and postoperatively he had an episode of speech disturbance the subsequently resolved. He has been maintained on anticoagulation because of the history of atrial fibrillation. According to him he had significant hematuria at that time of presentation with evidence of clot that resolved. His breathing is better since his valve intervention. He denies any chest discomfort, dizziness or palpitations. He denies any fever, no PND or orthopnea. He has chronic skin changes and edema, unchanged. His left ventricle systolic function by echocardiogram was estimated at 45-50% in June. Prior to discharge he had urinary retention requiring straight catheterization. According to him he had prior episodes of hematuria but not recently. His medication at home included i nsulin, Lipitor 40 mg daily, Plavix and 5 mg daily, metformin, lisinopril 40 mg daily, metoprolol succinate 50 mg daily, amlodipine 5 mg daily,Xarelto 09/12 Patient seen and examined. Patient admitted to some of a productive cough. His sugars have been under controlled in the 300 400 range. He admits he has not had much of a appetite since his surgery. White count noted to be elevated today 18. He did receive 1 dose of IV Lasix today and abdominal ultrasound/renal ultrasound to be performed today. Admits to some shortness breath. Still having some confusion and aphasia. Patient not using his right hand as much and does have some right arm weakness. Physical Examination: Head: Normocephalic. Eyes: Sclerae nonicteric. Neck: Good carotid upstroke, no bruit, no jugular venous distention. Lungs: Clear to auscultation, bilateral wheeze. Heart: Irregular rate and rhythm, S1-S2, no S3, no rub. Systolic ejection murmur, 06/23, the sternotomy. Abdomen: Soft nontender, positive bowel sounds no organomegaly. Extremities: Chronic skin changes with trace edema Impression: 1. Hematuria probably exacerbated by the anticoagulation and the recent catheterization, his urine is clean at this time 2. Status post recent TAVR with direct aortic approach 3. Status post recent stroke, periprocedureal from TAVR 4. History of severe PAD 5. History of CAD, stable 6. TOMA on CKD 7. History of hypertension 8. History of diabetes 9. Acute on chronic respiratory failure. Patient having more of a wheeze and leukocytosis cough and subjective chills concerning for pneumonia. 10. Altered mental status with aphasia and right-sided weakness. Suspect residual from recent stroke however rule out any hemorrhagic conversion or other. Likely exacerbated by infection, metabolic encephalopathy. Plan: Continue with anticoagulation especially given recent stroke. Check CT brain to rule out any evolution or hemorrhagic conversion however suspect continued altered mental status related to metabolic encephalopathy. Increased white blood cell count, cough, subjective chills and more of a wheeze on exam and we will treat empirically for pneumonia. Repeat chest x-ray. Check pro-calcito nicolette. Avoid further diuretics and monitor. Patient has not been eating or drinking for last 5 days and do not appreciate any fluid. Prognosis guarded. Objective - Vital Signs Vital signs: Vital Signs Temp 97.9 F 09/12/21 04:00 Pulse 84 09/12/21 07:55 Resp 20 09/12/21 04:00 BP 162/80 09/12/21 04:00 Pulse Ox 95 09/12/21 07:36 Intake & Output 09/11/21 09/12/21 09/12/21 18:59 06:59 18:59 Intake Total 1320 120 Output Total 200 400 Balance 1120 -280 Intake: Intake, IV Titration 600 Amount Sodium Chloride 0.9% 1, 600 000 ml @ 75 mls/hr IV . [id number] [facility] Rx#:[id number] Oral 720 120 Output: Urine 200 400 Uretheral (Van) 400 Other: Voiding Method Indwelling Catheter Indwelling Catheter # Bowel Movements 1 - Labs CBC & Chem 7: 09/12/21 07:29 09/12/21 07:29 Labs: Abnormal Lab Results - Last 24 Hours (Table) 09/11/21 09/11/21 09/11/21 Range/Units 11:25 16:45 20:52 WBC (3.8-10.6) k/uL RBC (4.30-5.90) m/uL Hgb (13.0-17.5) gm/dL Hct (39.0-53.0) % Neutrophils # (1.3-7.7) k/uL Sodium (137-145) mmol/L Carbon Dioxide (22-30) mmol/L BUN (9-20) mg/dL Creatinine (0.66-1.25) mg/dL Glucose (74-99) mg/dL POC Glucose (mg/dL) 405 H 478 H 463 H (75-99) mg/dL Calcium (8.4-10.2) mg/dL Magnesium (1.6-2.3) mg/dL AST (17-59) U/L ALT (4-49) U/L Alkaline Phosphatase (38-126) U/L Total Protein (6.3-8.2) g/dL Albumin (3.5-5.0) g/dL 09/12/21 09/12/21 09/12/21 Range/Units 06:04 07:29 07:29 WBC 18.1 H (3.8-10.6) k/uL RBC 3.82 L (4.30-5.90) m/uL Hgb 11.7 L (13.0-17.5) gm/dL Hct 36.2 L (39.0-53.0) % Neutrophils # 14.9 H (1.3-7.7) k/uL Sodium 130 L (137-145) mmol/L Carbon Dioxide 15 L (22-30) mmol/L BUN 83 H (9-20) mg/dL Creatinine 2.25 H (0.66-1.25) mg/dL Glucose 381 H (74-99) mg/dL POC Glucose (mg/dL) 392 H (75-99) mg/dL Calcium 7.9 L (8.4-10.2) mg/dL Magnesium 2.8 H (1.6-2.3) mg/dL AST 149 H (17-59) U/L ALT 189 H (4-49) U/L Alkaline Phosphatase 131 H (38-126) U/L Total Protein 6.2 L (6.3-8.2) g/dL Albumin 3.2 L (3.5-5.0) g/dL Microbiology - Last 24 Hours (Table) 09/10/21 14:41 Urine Culture - Preliminary Urine,Catheterized
--- NOTE | 2021-09-12 12:28 | CT ---
EXAMINATION TYPE: CT brain wo con DATE OF EXAM: 09/12/2021 COMPARISON: CT dated 02/07/2022 HISTORY: Right sided weakness. CT DLP: 1129.4 mGycm Automated exposure control for dose reduction was used. TECHNIQUE: CT scan of the brain is performed without IV contrast administration. FINDINGS: Interval development of acute to subacute left thalamocapsular infarct measuring 19 mm. This could ex plain the patient's presentation. Stable prominent left anterior middle cranial fossa extra-axial CSF spaces versus arachnoid cyst. Unchanged brain volume loss changes. No acute intracranial hemorrhage. No midline shift or herniation . Unremarkable basal cisterns, sella and CP angles. No gross space-occupying lesion. No other signifi cant change from the previous recent CT scan. IMPRESSION: Evolving acute to subacute left thalamocapsular infarct as described above, please correlate clinical ly.
[2021-09-12 14:43] LABS: Glucose,Whole Blood 447 mg/dL (75-99)
[2021-09-12] MEDS: INSULIN REGULAR 100 UNIT in SODIUM CHLORIDE 0.9% 100 ML IV SCH ×2 (15:04→20:14)
--- NOTE | 2021-09-12 15:24 | PN ---
PROGRESS NOTE DATE OF SERVICE: 09/12/2021 This 76 -year-old gentleman who recently admitted after TAVR is being closely monitored. The patient complained of generalized weakness and tiredness. Creatinine is still elevated and the chest x-ray reviewed personally by me showed some increased bronchovascular markings and the CT brain again reviewed by me showed asymmetry, some atrophy and as well as evolving early to acute and subacute left thalamic capsular stroke also as well. No chest pain. No palpitations. Past medical history reviewed. REVIEW OF SYSTEMS: A 14 point review of systems is negative except mentioned earlier. MEDICATIONS ARE: Norvasc, DuoNeb. Dose, and other medications reviewed. See list. PHYSICAL EXAMINATION: Pulse is 89, blood pressure 124/80, respiration 20. Chest a few scattered rhonchi. Cardiovascular system: S1, S2 muffled. Abdomen: Soft, nontender. Nervous system: Diffusely weak. LABS: WBC 18.2, hemoglobin 11.7. The LFTs are noted. ASSESSMENT: 1. Acute renal failure and dehydration. 2. Possibly acute to subacute left thalamic capsule infarct. 3. Possible underlying dementia. 4. History of recent TAVR. 5. Hematuria. 6. Atrial fibrillation. 7. Elevated LFTs. 8. Diabetes mellitus, type 2. 9. Weakness and gait dysfunction. 10.Hypertension. RECOMMENDATIONS AND DISCUSSION: In this 76 -year-old gentleman who presented with multiple complex medical issues, as listed earlier, I would recommend neuro checks and neurology evaluation. Full neurovascular workup, Cardiology and Cardiothoracic surgery have been already consulted and I had a detailed discussion with the son and the patient has very poor social support. The family works all day. I would strongly recommend PT/OT evaluation and possible inpatient rehab with Dr. Mahmood or rehab with COUNTS INCLUDE 234 BEDS AT THE [facility]. Once again the prognosis guarded. See orders for further details. MMODL / IJN: [id number] /
--- NOTE | 2021-09-12 15:38 | US ---
EXAMINATION TYPE: US kidneys/renal and bladder DATE OF EXAM: 09/12/2021 COMPARISON: NONE CLINICAL HISTORY: 76-year-old male acute kidney injury TECHNIQUE: Multiple sonographic images of the kidneys and bladder are obtained. FINDINGS: EXAM MEASUREMENTS: Right Kidney: 11.9 x 6.4 x 6.0 cm Left Kidney: 12.8 x 6.8 x 4.9cm Assistant Executive Housekeeper notes: Morbidly obese patient, technically difficult, limited study. Right Kidney: limited views show no obvious hydronephrosis or mass Left Kidney: Hypoechoic area measuring 1.4 cm in the central upper pole, probable parapelvic cyst. In ternal echoes could be artifactual or could represent debris. No evident hydronephrosis. Bladder: Inadequately characterized due to Van catheter. IMPRESSION: 1. Technically limited exam due to patient body habitus. No obvious hydronephrosis. 2. A 1.4 cm round lesion probably represents a parapelvic cyst in the left kidney. Six-month follow-u p renal ultrasound to reassess. 3. Bladder not assessed as there is an indwelling Van catheter.
--- NOTE | 2021-09-12 16:07 | US ---
EXAMINATION TYPE: US carotid duplex BILAT DATE OF EXAM: 09/12/2021 COMPARISON: Correlation MRA 09/09/2021 CLINICAL HISTORY: 76-year-old male stroke, right-sided weakness TECHNIQUE: Carotid duplex ultrasound examination. Indirect Doppler criteria was utilized. FINDINGS: EXAM MEASUREMENTS: RIGHT: Peak Systolic Velocity (PSV) cm/sec ----- Right CCA: 56.4 ----- Right ICA: 98.4 ----- Right ECA: 122.0 ICA/CCA ratio: 1.7 RIGHT: End Diastole cm/sec ----- Right CCA: 12.7 ----- Right ICA: 28.8 ----- Right ECA: 16.0 LEFT: Peak Systolic Velocity (PSV) cm/sec ----- Left CCA: 30.8 ----- Left ICA: unable to see flow ----- Left ECA: 105.1 ICA/CCA ratio: --- LEFT: End Diastole cm/sec ----- Left CCA: 0.0 ----- Left ICA: unable to see flow ----- Left ECA: 16.0 VERTEBRALS (direction of flow): Right Vertebral: not seen due to below limitations Left Vertebral: not seen due to below limitations Hostess notes: Very large thick neck, technically difficult study Hostess notes: Left side may indicate ICA occlusion. The ICA shows extensive calcified plaque. Du e to patients body habitus it is very difficult to assess mid and distal ICA. Left CCA shows minimal end diastolic velocities also indicative of ICA occlusion. IMPRESSION: 1. No flow detected in the left ICA suggesting occlusion. We note patient's MRI head 09/09/2021 indica ting a history of chronic left ICA occlusion. 2. Unable to adequately visualize the vertebral arteries due to exam limitations. Criteria for Assigning % of Stenosis / Diameter reduction (Estimation based on the indirect measurements of the internal carotid artery velocities (ICA PSV). 1. Normal (no stenosis)=ICA PSV < 125 cm/s: ratio < 2.0: ICA EDV<40 cm/s. 2. Less than 50% stenosis=ICA PSV < 125 cm/s: ratio < 2.0: ICA EDV<40 cm/s. 3. 50 to 69% stenosis=ICA PSV of 125 to 230 cm/s: ration 2.0 ? 4.0: ICA EDV 40-100 cm/s. 4. Greater than 70% stenosis to near occlusion= ICA PSV > 230 cm/s: ratio > 4.0: ICA EDV > 100 cm/s. 5. Near occlusion= ICA PSV velocities may be low or undetectable: variable ratio and ICA EDV. 6. Total occlusion=unable to detect flow.
[2021-09-12 17:06] LABS: Glucose,Whole Blood 314 mg/dL (75-99)
[2021-09-12] MEDS: RIVAROXABAN 20 MG TAB PO SCH (17:23)
[2021-09-12] MEDS: TAMSULOSIN 0.4 MG CAP.ER.24H PO SCH (17:23)
[2021-09-12] MEDS ORDERED: INSULIN ASPART (NovoLOG) 100 UNIT/ML VIAL SQ SCH (17:30)
[2021-09-12 19:24] LABS: Glucose,Whole Blood 223 mg/dL (75-99)
[2021-09-12] MEDS: ATORVASTATIN 40 MG TAB PO SCH (20:17)
[2021-09-12 21:08] LABS: Glucose,Whole Blood 198 mg/dL (75-99)
[2021-09-12] MEDS ORDERED: INSULIN DETEMIR (LEVEMIR) 100 UNIT/ML SYR SQ SCH (21:15)
[2021-09-12 22:31] LABS: Glucose,Whole Blood 171 mg/dL (75-99)
[2021-09-13 02:03] LABS: Glucose,Whole Blood 200 mg/dL (75-99)
[2021-09-13] MEDS ORDERED: INSULIN ASPART (NovoLOG) 100 UNIT/ML VIAL SQ ONE (02:06)
--- NOTE | 2021-09-13 05:46 | P.CONS ---
History of Present Illness - Chief Complaint Cardiac debility - History of Present Illness I had the opportunity to see patient for inpatient rehab consultation regard to cardiac debility. Patient admitted to Dr. Tapia September 10 status post recent T aVR. Patient with complication of urine blood clots and acute kidney injury. Was seen by Dr. Fischer. Seen by cardiology for the recent above. Seen by Dr. Perez for any acute kidney injury. Laboratories chest x-ray with moderate cardiomegaly and left base atelectasis. Head CT with evolving left thalamic capsule infarct. Carotid Doppler done. PT prescribed. OT reports maximal assistance for upper dressing and total assistance for lower dressing, bathing, toileting. Previous functional history as elicited from patient: 76-year-old left-handed w hesham male who is single lives and 2 floor home with son. Patient retired and son works full-time. Patient describes independent with cooking, laundry, driving, sitdown shower and gait without device. PCP Dr. Fonutain. Denies tobacco and has occasional drink. Review of Systems Review of systems: ENT: Denies sneezes or discharge. Eyes: Denies discharge or photophobia. Cardiac: Denies chest pain or palpitation. Pulmonary: Denies cough or shortness of breath. Gastrointestinal: Denies nausea, emesis, constipation, diarrhea. Genitourinary: Denies discharge or frequency. Musculoskeletal: Denies muscle or bone aches. Neurologic: Perhaps mild generalized weakness. Endocrine: Denies shakes or sweats. Oncology: Denies cancers. Dermatologic: Denies rash, itching, pruritus. ALLERGY/immunology: Denies sneezes, rashes. 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 COLONOSCOPY, EGD, left leg bypass, PICC line-later removed; transcatheter aortic valve replacement through direct aortic access with dale-sternotomy using 29 mm Core-Valve Evolut- Pro Plus Past Anesthesia/Blood Transfusion Reactions: Motion Sickness Additional Past Anesthesia/Blood Transfusion Reaction / Comm: no hx blood transfusion Past Psychological History: No Psychological Hx Reported Smoking Status: Former smoker Past Alcohol Use History: Occasional Past Drug Use History: None Reported - Past Family History Father Family Medical History: Cancer Additional Family Medical History / Comment(s): throat CA that spread to his brain Mother Additional Family Medical History / Comment(s): heart problems Brother(s) Family Medical History: Diabetes Mellitus Medications and Allergies Home Medications Medication Instructions Recorded Confirmed Type metFORMIN HCL [Glucophage] 500 mg PO BID 03/03/16 09/10/21 History amLODIPine [Norvasc] 5 mg PO DAILY 06/22/17 09/10/21 History Atorvastatin [Lipitor] 40 mg PO HS 07/06/21 09/10/21 History Dulaglutide [Trulicity] 3 mg SQ MO 07/06/21 09/10/21 History Insulin Glargine,Hum.rec.anlog 80 units SQ HS 07/06/21 09/10/21 History [Touvince Solostar] Metoprolol Succinate (ER) [Toprol 50 mg PO DAILY 07/06/21 09/10/21 History XL] Rivaroxaban [Xarelto] 20 mg PO HS 07/06/21 09/10/21 History glipiZIDE [Glucotrol] 5 mg PO AC-BID 07/06/21 09/10/21 History lisinopriL 40 mg PO DAILY 07/06/21 09/10/21 History Acetaminophen Tab [Tylenol] 650 mg PO Q4HR PRN tab 09/09/21 09/10/21 Rx Clopidogrel [Plavix] 75 mg PO DAILY #30 tab 09/09/21 09/10/21 Rx Tamsulosin [Flomax] 0.4 mg PO PC-SUPPER #30 capsule 09/09/21 09/10/21 Rx Ammonium Lactate Lotion 1 applic TOPICAL BID PRN 09/10/21 09/10/21 History [Lac-Hydrin 12% Lotion] traMADol HCL [Ultram] 50 mg PO Q4HR PRN 09/10/21 09/10/21 History Allergies Allergy/AdvReac Type Severity Reaction Status Date / Time vancomycin Allergy Dyspnea/sha Verified 09/10/21 13:40 ky neoprene Allergy Rash/Hives Uncoded 09/10/21 13:40 Physical Exam Vitals: Vital Signs Temp Pulse Pulse Pulse Resp BP Pulse Ox 09/13/21 03:37 97.6 F 88 20 132/77 93 L 09/13/21 02:00 24 09/12/21 23:51 98.3 F 82 24 148/64 92 L 09/12/21 20:00 98.3 F 81 22 136/60 94 L 09/12/21 19:26 84 09/12/21 19:20 82 09/12/21 17:20 97.8 F 101 H 20 119/71 95 09/12/21 15:23 83 09/12/21 15:13 80 09/12/21 14:00 93 20 09/12/21 11:35 89 20 125/88 95 09/12/21 11:17 82 09/12/21 11:06 86 09/12/21 09:10 98.2 F 92 18 121/77 93 L 09/12/21 07:55 84 09/12/21 07:36 80 95 Intake and Output 09/12/21 09/12/21 09/13/21 14:59 22:59 06:59 Intake Total 530 326.532 Output Total 400 400 800 Balance 130 -73.468 -800 Intake: Intake, IV Titration 50 86.532 Amount Insulin Regular 100 unit 86.532 In Sodium Chloride 0.9% 100 ml @ Titrate IV .Q0M [facility] Rx#:[id number] cefTRIAXone 2 gm In 50 Sodium Chloride 0.9% 50 ml @ 100 mls/hr IVPB Q24HR [facility] Rx#:[id number] Oral 480 240 Output: Urine 400 400 800 Uretheral (Van) 400 400 Other: Voiding Method Indwelling Catheter Indwelling Catheter Indwelling Catheter # Bowel Movements 2 Skin: Atrophic, intact. General: Overweight build and comfortable appearance. Head: Normocephalic, atraumatic. Eyes: Symmetric. Pupils equal round. Ears: Symmetric. Hearing within normal limits. Mouth: Clear. Neck: Supple. Carotid without bruit. Cardiac: Regular rate and rhythm. Lungs: Clear anteriorly and posteriorly. Abdomen: Soft active nontender. Extremities: Normal tone. Neurological: Mental status: Alert, cooperative, pleasant. Cranial nerves: Symmetric facial tone and trapezius. Motor: Normal strength and isolation all 4 limbs. Sensation: Intact throughout. DTRs: Symmetric and equal throughout. Mobility: Patient reports independent in room including bathroom. Results CBC & Chem 7: 09/12/21 07:29 09/12/21 07:29 Labs: Abnormal Lab Results - Last 24 Hours (Table) 09/12/21 09/12/21 09/12/21 Range/Units 06:04 07:27 07:29 WBC (3.8-10.6) k/uL RBC (4.30-5.90) m/uL Hgb (13.0-17.5) gm/dL Hct (39.0-53.0) % Neutrophils # (1.3-7.7) k/uL Sodium 130 L (137-145) mmol/L Carbon Dioxide 15 L (22-30) mmol/L BUN 83 H (9-20) mg/dL Creatinine 2.25 H (0.66-1.25) mg/dL Glucose 381 H (74-99) mg/dL POC Glucose (mg/dL) 392 H (75-99) mg/dL Calcium 7.9 L (8.4-10.2) mg/dL Magnesium 2.8 H (1.6-2.3) mg/dL AST 149 H (17-59) U/L ALT 189 H (4-49) U/L Alkaline Phosphatase 131 H (38-126) U/L Total Protein 6.2 L (6.3-8.2) g/dL Albumin 3.2 L (3.5-5.0) g/dL Procalcitonin 1.16 H (0.02-0.09) ng/mL 09/12/21 09/12/21 09/12/21 Range/Units 07:29 11:36 14:40 WBC 18.1 H (3.8-10.6) k/uL RBC 3.82 L (4.30-5.90) m/uL Hgb 11.7 L (13.0-17.5) gm/dL Hct 36.2 L (39.0-53.0) % Neutrophils # 14.9 H (1.3-7.7) k/uL Sodium (137-145) mmol/L Carbon Dioxide (22-30) mmol/L BUN (9-20) mg/dL Creatinine (0.66-1.25) mg/dL Glucose (74-99) mg/dL POC Glucose (mg/dL) 347 H 447 H (75-99) mg/dL Calcium (8.4-10.2) mg/dL Magnesium (1.6-2.3) mg/dL AST (17-59) U/L ALT (4-49) U/L Alkaline Phosphatase (38-126) U/L Total Protein (6.3-8.2) g/dL Albumin (3.5-5.0) g/dL Procalcitonin (0.02-0.09) ng/mL 09/12/21 09/12/21 09/12/21 Range/Units 17:04 19:22 21:06 WBC (3.8-10.6) k/uL RBC (4.30-5.90) m/uL Hgb (13.0-17.5) gm/dL Hct (39.0-53.0) % Neutrophils # (1.3-7.7) k/uL Sodium (137-145) mmol/L Carbon Dioxide (22-30) mmol/L BUN (9-20) mg/dL Creatinine (0.66-1.25) mg/dL Glucose (74-99) mg/dL POC Glucose (mg/dL) 314 H 223 H 198 H (75-99) mg/dL Calcium (8.4-10.2) mg/dL Magnesium (1.6-2.3) mg/dL AST (17-59) U/L ALT (4-49) U/L Alkaline Phosphatase (38-126) U/L Total Protein (6.3-8.2) g/dL Albumin (3.5-5.0) g/dL Procalcitonin (0.02-0.09) ng/mL 09/12/21 09/13/21 Range/Units 22:29 02:03 WBC (3.8-10.6) k/uL RBC (4.30-5.90) m/uL Hgb (13.0-17.5) gm/dL Hct (39.0-53.0) % Neutrophils # (1.3-7.7) k/uL Sodium (137-145) mmol/L Carbon Dioxide (22-30) mmol/L BUN (9-20) mg/dL Creatinine (0.66-1.25) mg/dL Glucose (74-99) mg/dL POC Glucose (mg/dL) 171 H 200 H (75-99) mg/dL Calcium (8.4-10.2) mg/dL Magnesium (1.6-2.3) mg/dL AST (17-59) U/L ALT (4-49) U/L Alkaline Phosphatase (38-126) U/L Total Protein (6.3-8.2) g/dL Albumin (3.5-5.0) g/dL Procalcitonin (0.02-0.09) ng/mL Microbiology - Last 24 Hours (Table) 09/10/21 14:41 Urine Culture - Final Urine,Catheterized Assessment and Plan (1) TOMA (acute kidney injury) Current Visit: Yes Status: Acute Code(s): N17.9 - ACUTE KIDNEY FAILURE, UNSPECIFIED SNOMED Code(s): 38922101 (2) CVA (cerebral vascular accident) Current Visit: Yes Status: Acute Code(s): I63.9 - CEREBRAL INFARCTION, UNSPECIFIED SNOMED Code(s): 697607337 (3) Hematuria Current Visit: Yes Status: Acute Code(s): R31.9 - HEMATURIA, UNSPECIFIED SNOMED Code(s): 02101289 (4) UTI (urinary tract infection) Current Visit: Yes Status: Acute Code(s): N39.0 - URINARY TRACT INFECTION, SITE NOT SPECIFIED SNOMED Code(s): 76208244 (5) Urinary retention Current Visit: Yes Status: Acute Code(s): R33.9 - RETENTION OF URINE, UNSPECIFIED SNOMED Code(s): 231428167 (6) Atherosclerosis of [place] arteries of the extremities with ulceration Current Visit: No Status: Acute Code(s): I70.25 - ATHSCL [place] ARTERIES OF EXTREMITIES W ULCERATION SNOMED Code(s): 33051604 (7) Diabetes mellitus type 2 with complications Current Visit: No Status: Acute Code(s): E11.8 - TYPE 2 DIABETES MELLITUS WITH UNSPECIFIED COMPLICATIONS SNOMED Code(s): 81202017 Plan: Comments and plan: At this time patient reports independent in room including bathroom. This of course must verify. Would await PT and OT notes for today as will require these for any possible inpatient rehab. Possible inpatient rehab discussed with patient and he seems agreeable if necessary.
[2021-09-13 06:27] LABS: Glucose,Whole Blood 185 mg/dL (75-99)
[2021-09-13 07:36] LABS: Glucose,Whole Blood 182 mg/dL (75-99)
[2021-09-13] MEDS: INSULIN ASPART (NovoLOG) 100 UNIT/ML VIAL SQ SCH ×4 (08:07→12:20)
[2021-09-13] MEDS: SODIUM BICARBONATE TAB 650 MG TAB PO SCH ×2 (08:08→15:19)
[2021-09-13] MEDS: amLODIPine 5 MG TAB PO SCH (08:08)
[2021-09-13] MEDS: METOPROLOL SUCCINATE (ER) 50 MG TAB.ER.24H PO SCH (08:08)
[2021-09-13] MEDS: CLOPIDOGREL 75 MG TAB PO SCH (08:08)
[2021-09-13] MEDS: IPRATROPIUM-ALBUTEROL 3 ML NEB INHALATION SCH ×3 (08:36→15:23)
[2021-09-13] MEDS: BUDESONIDE 1 MG/2 ML NEBU INHALATION SCH (08:36)
[2021-09-13] MEDS ORDERED: FUROSEMIDE 10 MG/ML 4 ML VIAL IV STA (08:56)
--- NOTE | 2021-09-13 08:57 | P.PN ---
Subjective Patient is seen in follow for acute kidney injury. Renal function fairly stable - creatinine 2.25 yesterday. Blood sugars still high. Off IV fluids. Received a dose of IV Lasix yesterday. Urine output 1.6 L in the last 24 hours. IV fluids stopped. Has Van catheter for urinary retention. Oral intake is fair. Hemodynamically stable. No vomiting or diarrhea. Vital signs are stable. General: The patient appeared well nourished and normally developed. HEENT: Head exam is unremarkable. LUNGS: Breath sounds decreased. HEART: Rate and Rhythm are regular. ABDOMEN: Soft, obese. EXTREMITITES: 1+ edema. Chronic changes noted. Objective - Vital Signs Vital signs: Vital Signs Temp 97.6 F 09/13/21 03:37 Pulse 88 09/13/21 03:37 Resp 20 09/13/21 03:37 BP 132/77 09/13/21 03:37 Pulse Ox 93 L 09/13/21 03:37 Intake & Output 09/12/21 09/13/21 09/13/21 18:59 06:59 18:59 Intake Total 818.076 38.456 Output Total 800 800 Balance 18.076 -761.544 Intake: Intake, IV Titration 98.076 38.456 Amount Insulin Regular 100 unit 48.076 38.456 In Sodium Chloride 0.9% 100 ml @ Titrate IV .Q0M [facility] Rx#:[id number] cefTRIAXone 2 gm In 50 Sodium Chloride 0.9% 50 ml @ 100 mls/hr IVPB Q24HR [facility] Rx#:[id number] Oral 720 Output: Urine 800 800 Uretheral (Van) 800 Other: Voiding Method Indwelling Catheter Indwelling Catheter # Bowel Movements 2 1 - Labs CBC & Chem 7: 09/12/21 07:29 09/12/21 07:29 Labs: Abnormal Lab Results - Last 24 Hours (Table) 09/12/21 09/12/21 09/12/21 Range/Units 07:27 11:36 14:40 POC Glucose (mg/dL) 347 H 447 H (75-99) mg/dL Procalcitonin 1.16 H (0.02-0.09) ng/mL 09/12/21 09/12/21 09/12/21 Range/Units 17:04 19:22 21:06 POC Glucose (mg/dL) 314 H 223 H 198 H (75-99) mg/dL Procalcitonin (0.02-0.09) ng/mL 09/12/21 09/13/21 09/13/21 Range/Units 22:29 02:03 06:25 POC Glucose (mg/dL) 171 H 200 H 185 H (75-99) mg/dL Procalcitonin (0.02-0.09) ng/mL 09/13/21 Range/Units 07:35 POC Glucose (mg/dL) 182 H (75-99) mg/dL Procalcitonin (0.02-0.09) ng/mL Microbiology - Last 24 Hours (Table) 09/10/21 14:41 Urine Culture - Final Urine,Catheterized Assessment and Plan Plan: Assessment: 1. Acute kidney injury secondary to ATN secondary to uncontrolled diabetes, urinary retention. Also component of cardiorenal. Creatinine fairly stable at 2.25 yesterday. Baseline creatinine near 1 from 09/08/2021. 2. Fluid overload. 3. Urinary retention status post Van catheter placement. On Flomax. No hydronephrosis noted on kidney ultrasound. 4. Status post TAVR August 2021. 5. Hematuria. Patient is on Plavix as well as Xarelto. 6. History of A. fib. 7. Metabolic acidosis secondary to acute kidney injury. On oral bicarbonate. 8. Hypertonic hyponatremia secondary to hyperglycemia. Also hypervolemic. 9. Diabetes mellitus. Plan: Repeat Lasix 40 mg IV once today. Maintain Van catheter. Tight blood sugar control. Avoid nephrotoxins. Continue to monitor renal function and urine output. Follow-up echocardiogram. Follow-up morning labs.
--- NOTE | 2021-09-13 10:33 | P.DS ---
Providers Date of admission: 09/12/21 12:37 Expected date of discharge: 09/13/21 Attending physician: Brody Tapia Consults: 09/10/21 16:15 Consult Physician Urgent Consulting Provider: Anthony Servin Consult Reason/Comments: recent TAVR Do you want consulting provider notified?: Already Contacted 09/11/21 08:58 Consult Physician Routine Consulting Provider: Josh Adamson Consult Reason/Comments: chronic afib/Xarelto on hold due to hematuria; recent TAVR Do you want consulting provider notified?: Yes Consult Physician Routine Consulting Provider: Emily Burgess Consult Reason/Comments: acute kidney injury Do you want consulting provider notified?: Yes 09/12/21 13:04 Consult Physician Routine Consulting Provider: Federico Mahmood Consult Reason/Comments: ip rehab?? possible stroke, wekaness recent TVR Do you want consulting provider notified?: Yes Primary care physician: Radha Goodman Hospital Course: Final diagnosis Acute renal failure and dehydration Possibly acute to subacute left elbow capsule infarct Possible underlying dementia Hematuria atrial fibrillation Elevated LFTs Diabetes mellitus type 2 uncontrolled with hyperglycemia Weakness and gait dysfunction Hypertension Full code Discharge disposition Patient is being discharged in a stable condition with guarded prognosis to [facility] inpatient rehab for continued PT/OT therapy. Patient will follow-up with Dr. Goodman in the outpatient setting upon discharge from patient rehab. Recommend repeat labs of CBC and CMP in 2-3 days to monitor kidney functions and electrolytes. Total time taken is greater than 35 minutes. Hospital course This is a 76-year-old male who was recently admitted with generalized weakness and fatigue status post recently undergoing TAVR and is being closely monitored by multiple medical consultations. Patient has been evaluated by Dr. Mahmood from [facility] inpatient rehab and patient will be discharged therefore continued PT/OT therapy. Patient will need to follow-up with cardiology along with vascular surgery and nephrology in the outpatient setting. She is blood sugars uncontrolled with hyperglycemia and recommend continue with current medication regimen including pre-meal, sliding scale, and long-acting insulin. Recommend continue with consistent carb heart healthy diet. She was also evaluated by neurology as CT of the brain showed some asymmetry, atrophy as well as evolving early to acute to subacute left thalamus capsular stroke. Currently no reports of chest pain, shortness of breath, or palpitations. Patient is afebrile. No reports of nausea or vomiting and patient is tolerating diet. Patient will be going to [facility] inpatient rehab today. Guarded prognosis. On exam vital signs are stable. Cardio S1, S2 are muffled. Respiratory system shows diminished breath sounds at the bases with no wheezing or rhonchi noted. Abdomen is soft and obese, and nontender. Nervous system shows diffuse weakness. Please refer to medication reconciliation sheet for a list of medications. The impression and plan of care has been dictated by Haley Thompson, Nurse Practitioner as directed. Dr. Willie MD I have performed a history and examination and MDM of this patient, discussed the same with the dictator, and agree with the dictator's assessment and plan as written ,documented as a scribe. Based on total visit time, I have performed more than 50% of the visit. Patient Condition at Discharge: Stable Plan - Discharge Summary Discharge Rx Participant: Yes New Discharge Prescriptions: New Ipratropium-Albuterol Nebulize [Duoneb 0.5 mg-3 mg/3 ml Soln] 3 ml INHALATION RT-QID ml INSULIN ASPART (NovoLOG) [NovoLOG (formulary)] 0 unit SQ ACHS ml INSULIN ASPART (NovoLOG) [NovoLOG (formulary)] 17 unit SQ AC-TID ml Budesonide [Pulmicort] 1 mg INHALATION RT-BID ml Sodium Bicarbonate Tab 650 mg PO TID tab Continue metFORMIN HCL [Glucophage] 500 mg PO BID amLODIPine [Norvasc] 5 mg PO DAILY Insulin Glargine,Hum.rec.anlog [Toujeo Solostar] 80 units SQ HS Atorvastatin [Lipitor] 40 mg PO HS Dulaglutide [Trulicity] 3 mg SQ MO Clopidogrel [Plavix] 75 mg PO DAILY #30 tab traMADol HCL [Ultram] 50 mg PO Q4HR PRN PRN Reason: Pain Rivaroxaban [Xarelto] 20 mg PO HS Metoprolol Succinate (ER) [Toprol XL] 50 mg PO DAILY glipiZIDE [Glucotrol] 5 mg PO AC-BID Tamsulosin [Flomax] 0.4 mg PO PC-SUPPER #30 capsule Acetaminophen Tab [Tylenol] 650 mg PO Q4HR PRN tab PRN Reason: Fever And/ Or Mild Pain (1-3) Ammonium Lactate Lotion [Lac-Hydrin 12% Lotion] 1 applic TOPICAL BID PRN PRN Reason: Skin Irritation Discontinued lisinopriL 40 mg PO DAILY Discharge Medication List metFORMIN HCL [Glucophage] 500 mg PO BID 03/03/16 [History] amLODIPine [Norvasc] 5 mg PO DAILY 06/22/17 [History] Atorvastatin [Lipitor] 40 mg PO HS 07/06/21 [History] Dulaglutide [Trulicity] 3 mg SQ MO 07/06/21 [History] Insulin Glargine,Hum.rec.anlog [Toujeo Solostar] 80 units SQ HS 07/06/21 [History] Metoprolol Succinate (ER) [Toprol XL] 50 mg PO DAILY 07/06/21 [History] Rivaroxaban [Xarelto] 20 mg PO HS 07/06/21 [History] glipiZIDE [Glucotrol] 5 mg PO AC-BID 07/06/21 [History] Acetaminophen Tab [Tylenol] 650 mg PO Q4HR PRN tab 09/09/21 [Rx] Clopidogrel [Plavix] 75 mg PO DAILY #30 tab 09/09/21 [Rx] Tamsulosin [Flomax] 0.4 mg PO PC-SUPPER #30 capsule 09/09/21 [Rx] Ammonium Lactate Lotion [Lac-Hydrin 12% Lotion] 1 applic TOPICAL BID PRN 09/10/21 [History] traMADol HCL [Ultram] 50 mg PO Q4HR PRN 09/10/21 [History] Budesonide [Pulmicort] 1 mg INHALATION RT-BID ml 09/13/21 [Rx] INSULIN ASPART (NovoLOG) [NovoLOG (formulary)] 0 unit SQ ACHS ml 09/13/21 [Rx] INSULIN ASPART (NovoLOG) [NovoLOG (formulary)] 17 unit SQ AC-TID ml 09/13/21 [Rx] Ipratropium-Albuterol Nebulize [Duoneb 0.5 mg-3 mg/3 ml Soln] 3 ml INHALATION RT-QID ml 09/13/21 [Rx] Sodium Bicarbonate Tab 650 mg PO TID tab 09/13/21 [Rx] Follow up Appointment(s)/Referral(s): Hedy Fischer NPC [Nurse Practitioner] - 11/11/21 1:30 pm (Your appointment will be at the valve clinic within [facility], [place], [address] prior to your echo appointment at [facility]) Rober Gaines MD [REFERRING] - 2 Weeks (Should see neurologist in about 2 weeks for post stroke care; office will call with appointment) Bravo Joya DO [STAFF PHYSICIAN] - 09/16/21 2:00 pm (Your appointment 09/16/[address] Joya for groin check. You also have an appointment at [facility] 11/11/21 @ 2 pm for a 30 day post TAVR echo) Radha Goodman DO [Primary Care Provider] - 1-2 days Nurse,[facility] [NON-STAFF] - Ambulatory/Diagnostic Orders: Complete Blood Count w/diff [LAB.AMB] Time Frame: 3 Days, Location: None Selected Activity/Diet/Wound Care/Special Instructions: DISCHARGE INSTRUCTIONS: 1. No driving for 1 week, or until physician gives their ok. 2. No lifting, pushing, or pulling more than 5-10 pounds for 1 week. 3. Hold both groins when you cough or sneeze for the next 2 weeks. Bruising is common, but report increased swelling, pain or fever >101F 4. Shower daily. No pool, hot tub, or bathtub for 1 week 5. No powders, lotions, ointments on incisions. 6. No straining, including for bowel movements. Use stool softner if necessary 7. Stairs are not an issue. Go slowly, using handrail and take 1 step at a time. Ambulate several times daily 8. Continue pain control per as needed orders. 9. Take only the medications listed on your discharge form 10. Eat low salt (limited to 2 grams or 2000 milligrams) daily, avoid adding salt, avoid canned/processed foods 11. Take your weight daily in the morning and record, bring with you to your follow up appointments 12. Keep all follow up appointments. You will need a valve clinic appointment at 30 days and 1 year post procedure for follow up 13. You have been referred to and are expected to begin Cardiac Rehab in approximately 4 weeks. 14. You will need antibiotics prior to any dental work, including cleanings, and any surgeries to prevent Endocarditis (bacterial infection in your heart) For any questions or concerns please call your valve coordinators: Hedy Gipson @ Discharge Disposition: TRANSFER TO SNF/ECF
[2021-09-13 11:53] LABS: Albumin 3.1 g/dL (3.5-5.0); Calcium 8.6 mg/dL (8.4-10.2); Total Bilirubin 0.8 mg/dL (0.2-1.3); Total Protein 6.1 g/dL (6.3-8.2)
--- NOTE | 2021-09-13 12:00 | ECHOF ---
Referral Reason:New Stroke, please repeat ECHO! MEASUREMENTS -------- HEIGHT: 165.1 cm WEIGHT: 127.0 kg BP: IVSd: 1.1 cm (0.6 - 1.1) LVIDd: 4.3 cm (3.9 - 5.3) LVPWd: 1.3 cm (0.6 - 1.1) IVSs: 1.9 cm LVIDs: 4.1 cm LVPWs: 2.0 cm Ao Diam: 2.9 cm (2.0 - 3.7) MV E Ulises: 0.98 m/s MV DecT: 177 ms MV A Ulises: 0.73 m/s MV E/A Ratio: 1.34 AV maxP.01 mmHg AV meanP.87 mmHg FINDINGS -------- Sinus rhythm. Morbid Obesity This was a techncally difficult study with suboptimal views, , Lumason utilized for enhancement of images. Pt is post sternectomy/TAVR & Echo 09/07/21: Repeat Echo Per for savanna nagel. The left ventricular size is normal. Overall left ventricular systolic function is mild-moderately impaired with, an EF between 40 - 45 %. The right ventricle is normal in size. The left atrium is mildly dilated. The aortic valve was not well visualized. Peak/mean gradient across the Aortic Valve is 12.01mmHg / 4.87mmHg. Bioprosthetic AOV. Mild mitral annular calcification present. No mitral regurgitation. The tricuspid valve was not well visualized. The pulmonic valve was not well visualized. The aortic root size is normal. Small Pericardial effusion CONCLUSIONS -------- 1. Morbid Obesity 2. This was a techncally difficult study with suboptimal views, , Lumason utilized for enhancement of images. 3. Pt is post sternectomy/TAVR & Echo 09/07/21: Repeat Echo Per for stroke. 4. The left ventricular size is normal. 5. Overall left ventricular systolic function is mild-moderately impaired with, an EF between 40 - 45 %. 6. The right ventricle is normal in size. 7. The left atrium is mildly dilated. 8. The aortic valve was not well visualized. 9. Peak/mean gradient across the Aortic Valve is 12.01mmHg / 4.87mmHg. 10. Bioprosthetic AOV. 11. Mild mitral annular calcification present. 12. No mitral regurgitation. 13. The tricuspid valve was not well visualized. 14. The pulmonic valve was not well visualized. 15. The aortic root size is normal. 16. Small Pericardial effusion TELE MARKETING EXECUTIVE: Anika Loredo RDCS
[2021-09-13 12:09] LABS: Potassium 5.5 mmol/L (3.5-5.1)
[2021-09-13 12:17] LABS: Glucose,Whole Blood 218 mg/dL (75-99)
[2021-09-13 12:36] LABS: Basophils # (A) 0.1 k/uL (0-0.2); Basophils % (A) 0 %; Eosinophils % (A) 0 %; HCT 37.1 % (39.0-53.0); HGB 11.8 gm/dL (13.0-17.5); Lymphocytes # (A) 1.4 k/uL (1.0-4.8); Lymphocytes % (A) 8 %; MCH 29.7 pg (25.0-35.0); MCHC 31.9 g/dL (31.0-37.0); MCV 93.2 fL (80.0-100.0); Mean Platelet Volume 9.1; Monocytes # (A) 1.5 k/uL (0-1.0); Monocytes % (A) 8 %; Neutrophils # (A) 15.6 k/uL (1.3-7.7); Neutrophils % (A) 82 %; Platelet Count 279 k/uL (150-450); RBC 3.98 m/uL (4.30-5.90); RDW 13.8 % (11.5-15.5); WBC 18.9 k/uL (3.8-10.6)
[2021-09-13 12:58] VITALS: BP 114/52; PULSE 75; RESP 16; TEMP 97.9
[2021-09-13] MEDS ORDERED: SODIUM BICARB 8.4% 50 ML SYR (1 MEQ/ML) IV STA (13:28)
[2021-09-13] MEDS: RIVAROXABAN 20 MG TAB PO SCH (15:19)
[2021-09-13] MEDS: TAMSULOSIN 0.4 MG CAP.ER.24H PO SCH (15:19)
== END 2021-09-13 15:50 | DRG 682 ==
LOC: EC 13:32 → 3SCARD 16:17 → OBSVTOIN 09-12 12:37
PROVIDERS: ADMIT Hospitalist; ATTEND Hospitalist
DX: N17.0 Acute kidney failure with tubular necrosis (principal); E11.10 Type 2 diabetes mellitus with ketoacidosis without coma; G93.41 Metabolic encephalopathy; I63.232 Cerebral infarction due to unspecified occlusion or stenosis of left carotid arteries; J96.20 Acute and chronic respiratory failure, unspecified whether with hypoxia or hypercapnia; Z68.42 Body mass index [BMI] 45.0-49.9, adult; E87.1 Hypo-osmolality and hyponatremia; I13.0 Hypertensive heart and chronic kidney disease with heart failure and stage 1 through stage 4 chronic kidney disease, or unspecified chronic kidney disease; I48.20 Chronic atrial fibrillation, unspecified; I50.32 Chronic diastolic (congestive) heart failure; J98.11 Atelectasis; N39.0 Urinary tract infection, site not specified; R47.01 Aphasia; E11.22 Type 2 diabetes mellitus with diabetic chronic kidney disease; E11.51 Type 2 diabetes mellitus with diabetic peripheral angiopathy without gangrene; E66.9 Obesity, unspecified; E78.5 Hyperlipidemia, unspecified; E86.0 Dehydration; I25.10 Atherosclerotic heart disease of native coronary artery without angina pectoris; I35.0 Nonrheumatic aortic (valve) stenosis; I35.8 Other nonrheumatic aortic valve disorders; R26.9 Unspecified abnormalities of gait and mobility; R33.9 Retention of urine, unspecified; Z95.828 Presence of other vascular implants and grafts; R31.9 Hematuria, unspecified; I70.25 Atherosclerosis of native arteries of other extremities with ulceration; N18.9 Chronic kidney disease, unspecified; Z79.01 Long term (current) use of anticoagulants; Z79.02 Long term (current) use of antithrombotics/antiplatelets; Z79.4 Long term (current) use of insulin; Z79.84 Long term (current) use of oral hypoglycemic drugs; Z79.899 Other long term (current) drug therapy; Z80.8 Family history of malignant neoplasm of other organs or systems; Z83.3 Family history of diabetes mellitus; Z86.73 Personal history of transient ischemic attack (TIA), and cerebral infarction without residual deficits; Z87.891 Personal history of nicotine dependence; Z95.3 Presence of xenogenic heart valve; Z90.89 Acquired absence of other organs; Z98.890 Other specified postprocedural states; Z87.19 Personal history of other diseases of the digestive system; Z88.1 Allergy status to other antibiotic agents
CPT/HCPCS: 36415; 70450; 71045; 76770; 80053; 81001; 82009; 83735; 83880; 84145; 84484; 85025; 85610; 85730; 87086; 93306; 93880; 94640; 94760; 96361; 96374; 99284